=== PATIENT | male | born 1950 | race Caucasian/White ===

== ENCOUNTER 2018-01-18 13:10 | Inpatient (IN) | payer MEDICARE, OTHER ==
[~2018-01-18] VITALS: Ht 175.3 cm; Wt 116.1 kg
[~2018-01-18 13:10] MED LIST: ALPR0.5T72 PO; ASPI-933 PO; CLOP75TA PO; ENAL10TA PO; ENAL5TAB PO; FURO40TA4 PO; GUAI400T35 PO; HCT25T; ISOS60TA; METH750T3; METO100T2 PO; METO100T5; MTP50T PO; OMEP-10; PARO30TA2; POTA10CA43 PO; PRAV40TA PO; RANI-10
--- NOTE | 2018-01-18 13:39 | ED General ---
General Stated Complaint: WEAKNESS Source of Information: Patient Exam Limitations: No Limitations History of Present Illness Date Seen by Provider: Jan 18, 2018 Time Seen by Provider: 13:37 Initial Comments To ER with general weakness and inability to get up off the couch. He's been like this for several days, states that he's only had enough energy to get up and use the restroom. Upon EMS arrival his blood pressure was in the 80s systolic. His blood sugar was 50s. He has a history of CHF, CABG, COPD and hepatitis C. He did complete heart bony treatment for the hepatitis C in August of this year. [facility] Arzola. He reports shortness of breath with exertion. Denies chest pain. He does have a cough. EMS reports that his home is in deplorable conditions. On arrival to ER he requests a [employer] house steak and Demerol. Timing/Duration: 1-2 Days Severity: Moderate Associated Systoms: Cough Allergies and Home Medications Allergies Coded Allergies: Penicillins (Unverified Allergy, Mild, 01/15/14) Home Medications Clopidogrel Bisulfate 75 Mg Tablet, 1 EACH PO DAILY, (Reported) Metoprolol Tartrate 50 Mg Tablet, 1 EACH PO DAILY, (Reported) Paroxetine Hcl 30 Mg Tablet, 30 MG DAILY, (Reported) Patient Home Medication List Home Medication List Reviewed: Yes Review of Systems Review of Systems Constitutional: see HPI EENTM: see HPI Respiratory: see HPI, cough, short of breath Cardiovascular: no symptoms reported Genitourinary: no symptoms reported Musculoskeletal: no symptoms reported Skin: no symptoms reported Psychiatric/Neurological: No Symptoms Reported Hematologic/Lymphatic: No Symptoms Reported Immunological/Allergic: no symptoms reported Past Qjwgzpn-Msgeti-Btxxrs Hx Immunizations Up To Date Date of Pneumonia Vaccine: Nov 19, 2013 Past Medical History COPD, Emphysema Chronic Edema/Swelling, Coronary Artery Disease Liver Disease/Jaundice, Chronic Constipation, Hepatitis, Cirrhosis Scoliosis, Chronic Back Pain Anxiety, Depression Physical Exam Vital Signs Vital Signs - First Documented 01/18/18 01/18/18 13:10 14:59 Temp 96.7 Pulse 67 Resp 15 B/P (MAP) 96/60 (72) Pulse Ox 88 O2 Delivery Vapotherm O2 Flow Rate 40.00 FiO2 100 Capillary Refill : Height, Weight, BMI Height: 5'8.00" Weight: 238lbs. 0.0oz. 107.514740ig; 36.2 BMI Method: General Appearance: No Apparent Distress, WD/WN HEENT: PERRL/EOMI, TMs Normal Neck: Full Range of Motion, Normal Inspection Respiratory: No Accessory Muscle Use, No Respiratory Distress, Decreased Breath Sounds, Wheezing Gastrointestinal: Normal Bowel Sounds, Non Tender, Soft Neurologic/Psychiatric: Alert, Oriented x3 Skin: Normal Color, Warm/Dry, Other (Capillary refill of toes is delayed at 5 seconds) Focused Exam Lactate Level 01/18/18 13:27: Lactic Acid Level 2.82*H 01/18/18 15:30: Lactic Acid Level 1.53 Lactic Acid Level Laboratory Tests Test 01/18/18 13:27 01/18/18 15:30 Lactic Acid Level 2.82 MMOL/L (0.50-2.00) *H 1.53 MMOL/L (0.50-2.00) Progress/Results/Core Measures Suspected Sepsis SIRS Temperature: Pulse: Respiratory Rate: Laboratory Tests 01/18/18 13:27: White Blood Count 5.1 Blood Pressure / Mean: 01/18/18 13:27: Lactic Acid Level 2.82*H 01/18/18 15:30: Lactic Acid Level 1.53 Laboratory Tests 01/18/18 13:27: Creatinine 2.75H, INR Comment 1.6H, Platelet Count 150, Total Bilirubin 3.2H Results/Orders Lab Results Laboratory Tests Test 01/18/18 13:23 01/18/18 13:27 01/18/18 15:30 Range/Units Glucometer 111 H 70-110 MG/DL White Blood Count 5.1 4.3-11.0 10^3/uL Red Blood Count 4.82 4.35-5.85 10^6/uL Hemoglobin 13.5 13.3-17.7 G/DL Hematocrit 41 40-54 % Mean Corpuscular Volume 85 80-99 FL Mean Corpuscular Hemoglobin 28 25-34 PG Mean Corpuscular Hemoglobin Concent 33 32-36 G/DL Red Cell Distribution Width 18.0 H 10.0-14.5 % Platelet Count 150 130-400 10^3/uL Mean Platelet Volume 11.3 H 7.4-10.4 FL Neutrophils (%) (Auto) 81 H 42-75 % Lymphocytes (%) (Auto) 7 L 12-44 % Monocytes (%) (Auto) 11 0-12 % Eosinophils (%) (Auto) 1 0-10 % Basophils (%) (Auto) 0 0-10 % Neutrophils # (Auto) 4.1 1.8-7.8 X 10^3 Lymphocytes # (Auto) 0.3 L 1.0-4.0 X 10^3 Monocytes # (Auto) 0.6 0.0-1.0 X 10^3 Eosinophils # (Auto) 0.1 0.0-0.3 10^3/uL Basophils # (Auto) 0.0 0.0-0.1 10^3/uL Neutrophils % (Manual) 89 % Lymphocytes % (Manual) 1 % Monocytes % (Manual) 9 % Eosinophils % (Manual) 0 % Basophils % (Manual) 1 % Band Neutrophils 0 % Anisocytosis MODERATE Prothrombin Time 19.1 H 12.2-14.7 SEC INR Comment 1.6 H 0.8-1.4 Sodium Level 132 L 135-145 MMOL/L Potassium Level 5.5 H 3.6-5.0 MMOL/L Chloride Level 100 98-107 MMOL/L Carbon Dioxide Level 21 21-32 MMOL/L Anion Gap 11 5-14 MMOL/L Blood Urea Nitrogen 53 H 7-18 MG/DL Creatinine 2.75 H 0.60-1.30 MG/DL Estimat Glomerular Filtration Rate 23 BUN/Creatinine Ratio 19 Glucose Level 127 H 70-105 MG/DL Lactic Acid Level 2.82 *H 1.53 0.50-2.00 MMOL/L Calcium Level 8.9 8.5-10.1 MG/DL Corrected Calcium 9.9 8.5-10.1 MG/DL Total Bilirubin 3.2 H 0.1-1.0 MG/DL Aspartate Amino Transf (AST/SGOT) 21 5-34 U/L Alanine Aminotransferase (ALT/SGPT) 15 0-55 U/L Alkaline Phosphatase 68 40-136 U/L Ammonia 50 H 11-32 UMOL/L Total Creatine Kinase 28 L 30-200 U/L B-Type Natriuretic Peptide 3346.6 H <100.0 PG/ML Total Protein 8.3 H 6.4-8.2 GM/DL Albumin 2.8 L 3.2-4.5 GM/DL My Orders Orders - BHAVESH SEE INSURANCE CASE MANAGER Cbc With Automated Diff (01/18/18 13:34) Comprehensive Metabolic Panel (01/18/18 13:34) Protime With Inr (01/18/18 13:34) Ua Culture If Indicated (01/18/18 13:34) Chest 1 View, Ap/Pa Only (01/18/18 13:34) Ammonia (01/18/18 13:34) Blood Culture (01/18/18 13:34) Lactic Acid Analyzer (01/18/18 13:34) Iv Heplock-Insert (Order) (01/18/18 13:34) BNP (01/18/18 13:34) Lidocaine 2% (Urojet) (Xylocaine Urojet) (01/18/18 13:41) Manual Differential (01/18/18 13:27) Furosemide Injection (Lasix Injection) (01/18/18 14:45) Creatine Kinase (01/18/18 15:18) Albuterol/Ipra Inhalation Soln (Duoneb I (01/18/18 15:30) Svn Small Volume Nebulizer (01/18/18 15:18) Medications Given in ED Current Medications Medications Dose Ordered Sig/Espinoza Route Start Time Stop Time Status Last Admin Dose Admin Albuterol/ Ipratropium 3 ml ONCE ONCE INH 01/18/18 15:30 01/18/18 15:31 DC 01/18/18 15:27 3 ML Lidocaine HCl 10 ml STK-MED ONCE .ROUTE 01/18/18 13:41 01/18/18 13:45 DC 01/18/18 13:46 10 ML Vital Signs/I&O 01/18/18 01/18/18 01/18/18 13:10 14:59 15:27 Temp 96.7 Pulse 67 Resp 15 B/P (MAP) 96/60 (72) Pulse Ox 88 94 94 O2 Delivery Vapotherm Vapotherm O2 Flow Rate 40.00 40.00 FiO2 100 100 Capillary Refill : Diagnostic Imaging Diagonstic Imaging: Xray Plain Films/CT/US/NM/MRI: chest Comments NAME: PANCHO WINSTON [facility] REC#: [id number] PT STATUS: REG ER : 1950 PHYSICIAN: BHAVESH SEE APRN ADMIT DATE: 01/18/18/ER Draft Date of Exam:01/18/18 CHEST 1 VIEW, AP/PA ONLY INDICATION: Weakness, hypotension.. TECHNIQUE: Single view chest 1:52 PM. CORRELATION STUDY: 01/15/2014 FINDINGS: Poststernotomy changes with extensive external fixation hardware. Cardiac enlargement persists. There is presence of pulmonary vascular congestion, perihilar edema. There does appear to be overall increase from prior study along with interstitial edema. Bilateral pleural effusions moderate on the left, stable and slightly increased on the right. Fluid on the left extends over the left lung apex. Associated consolidation of the left lung base. Superimposed edema versus infiltrate over the remaining lung miguel. IMPRESSION: 1. Overall features favor worsening congestive heart failure. Moderate left pleural effusion, increasing size right pleural effusion. Interstitial edema, likely some pulmonary edema present. 2. Superimposed atelectasis versus infiltrate in the left lung base. Dictated on workstation # [id number] Dict: 01/18/18 1416 Trans: 01/18/18 1430 CVB [id number] Interpreted by: VI DRAKE DO Electronically signed by: Departure Communication (Admissions) Time/Spoke to Admitting Phy: 15:[address] Spears. We will admit the patient consult cardiology, consult Dr. Disla from pulmonology. Time/Spoke to Consulting Phy: 15:[address] Dupont. He agrees to consult. At this time his blood pressure is 118/83 sinus rhythm heart rate 62 oxygen saturation 96% on Vapotherm as he was a bit dyspneic on 2-4 L per nasal cannula. He has received 40 mg of IV Lasix. Despite the appearance of pulmonary edema/central vascular congestion I do believe him to be intravascularly volume depleted given the elevated BUN/creatinine and inability to get off the couch and drink as much as usual for the past few days. He has received a total of 1L normal saline between EMS and his stay in ER. Impression Primary Impression: Congestive heart failure Additional Impressions: Acute renal failure Cirrhosis Disposition: ADMITTED INPATIENT Condition: Stable Admissions Decision to Admit Reason: Admit from ER (General) Decision to Admit/Date: Jan 18, 2018 Time/Decision to Admit Time: 13:43 Departure-Patient Inst. Referrals: LUZ ARZOLA DO (PCP/Family) Primary Care Physician BHAVESH SEE APRN Jan 18, 2018 13:39
[2018-01-18] MEDS ORDERED: LIDOCAINE UROJET 2% GEL 10 ML PKG ONE (13:41)
[2018-01-18 13:45] LABS: BASOPHILS % (AUTO) 0 % (0-10); EOSINOPHILS # (AUTO) 0.1 10^3/uL (0.0-0.3); EOSINOPHILS % (AUTO) 1 % (0-10); HEMATOCRIT 41 % (40-54); HEMOGLOBIN 13.5 G/DL (13.3-17.7); LYMPHOCYTES # (AUTO) 0.3 X 10^3 (1.0-4.0); LYMPHOCYTES % (AUTO) 7 % (12-44); MEAN CORPUSCULAR HEMOGLOBIN 28 PG (25-34); MEAN CORPUSCULAR HGB CONC 33 G/DL (32-36); MEAN CORPUSCULAR VOLUME 85 FL (80-99); MEAN PLATELET VOLUME 11.3 FL (7.4-10.4); MONOCYTES # (AUTO) 0.6 X 10^3 (0.0-1.0); MONOCYTES % (AUTO) 11 % (0-12); NEUTROPHILS # (AUTO) 4.1 X 10^3 (1.8-7.8); NEUTROPHILS % (AUTO) 81 % (42-75); PLATELET COUNT 150 10^3/uL (130-400); RED BLOOD COUNT 4.82 10^6/uL (4.35-5.85); WHITE BLOOD COUNT 5.1 10^3/uL (4.3-11.0)
[2018-01-18 13:56] LABS: INR 1.6 (0.8-1.4); PROTHROMBIN TIME PATIENT 19.1 SEC (12.2-14.7)
[2018-01-18 14:02] LABS: ALBUMIN 2.8 GM/DL (3.2-4.5); BILIRUBIN,TOTAL 3.2 MG/DL (0.1-1.0); CALCIUM 8.9 MG/DL (8.5-10.1); CREATININE SERUM 2.75 MG/DL (0.60-1.30); TOTAL PROTEIN 8.3 GM/DL (6.4-8.2)
[2018-01-18 14:13] LABS: POTASSIUM 5.5 MMOL/L (3.6-5.0)
[2018-01-18 14:26] LABS: ANISOCYTOSIS MODERATE; BAND NEUTROPHILS 0 %; BASOPHILS % (MANUAL) 1 %; EOSINOPHILS % (MANUAL) 0 %; LYMPHOCYTES % (MANUAL) 1 %; MONOCYTES % (MANUAL) 9 %; NEUTROPHILS % (MANUAL) 89 %
[2018-01-18] MEDS ORDERED: ISORBIDE (14:26)
[2018-01-18] MEDS ORDERED: NITR0.4T42 SL (14:26)
--- NOTE | 2018-01-18 14:31 | Diagnostic Imaging Report ---
INDICATION: Weakness, hypotension.. TECHNIQUE: Single view chest 1:52 PM. CORRELATION STUDY: 01/15/2014 FINDINGS: Poststernotomy changes with extensive external fixation hardware. Cardiac enlargement persists. There is presence of pulmonary vascular congestion, perihilar edema. There does appear to be overall increase from prior study along with interstitial edema. Bilateral pleural effusions moderate on the left, stable and slightly increased on the right. Fluid on the left extends over the left lung apex. Associated consolidation of the left lung base. Superimposed edema versus infiltrate over the remaining lung miguel. IMPRESSION: 1. Overall features favor worsening congestive heart failure. Moderate left pleural effusion, increasing size right pleural effusion. Interstitial edema, likely some pulmonary edema present. 2. Superimposed atelectasis versus infiltrate in the left lung base. Dictated by: Dictated on workstation # [id number]
[2018-01-18] MEDS ORDERED: FUROSEMIDE 40 MG/4 ML INJ (LASIX) IVP ONE (14:45)
[2018-01-18] MEDS ORDERED: RT-ALBUTEROL/IPRATROPIUM 3 ML (DUONEB) VIAL INH ONE (15:30)
--- NOTE | 2018-01-18 16:34 | Consultation-Cardiology ---
HPI-Cardiology Cardiology Consultation: Date of Consultation 01/18/18 Time Seen by Provider: 17:45 Date of Admission Attending Physician Dat Patel DO Admitting Physician Dat Patel DO Consulting Physician BHARAT SOSA MD, MA, FACP, FACC, FSCAI, CCDS Physician requesting consult: Dr Spears PCP: Dr Patel HPI: Chief Complaint: CC: Gen weakness and shortness of breath 67 yo man with multiple comorbidities, admitted through the ER to Dr Spears for eval and treatment of increasing gen weakness and malaise Has chronic, slowly progressive shortness of breath and bilat leg swelling. Notes itching over the skin of both legs Denies cp or palp or syncope Notes some abd distention. Denies diarrhea or constipation Does not report recent fever or chills Notes intolerance to Lasix (not able to specify symptoms) Review of Systems-Cardiology Review of Systems Constitutional: malaise; No weight loss, No weight gain Eyes: No vision change Ears/Nose/Throat: No ear discharge, No nasal drainage, No recent hearing loss Respiratory: As described under HPI Cardiovascular: As described under HPI Gastrointestinal: As described under HPI Genitourinary: No dysuria, No hematuria Musculoskeletal: back pain (chroni) Skin: As described under HPI; No rash, No ulcerations Psychiatric/Neurological: No seizure, No focal weakness, No syncope Hematologic: No bleeding abnormalities BDM-Uxkhnt-Aajmpg Hx Patient Social History Alcohol Use: Denies Use Recreational Drug Use: No Smoking Status: Current Everyday Smoker Recent Foreign Travel: No Recent Infectious Disease Expo: No Hospitalization with Isolation: Denies Immunizations Up To Date Date of Pneumonia Vaccine: Nov 19, 2013 Past Medical History PMH As described under Assessment. Family Medical History Family Medical History: Does not report fam h/o early CAD or SCD Allergies and Home Medications Allergies Coded Allergies: Penicillins (Unverified Allergy, Mild, 01/15/14) Home Medications Clopidogrel Bisulfate 75 Mg Tablet, 75 MG PO DAILY, (Reported) Metoprolol Tartrate 50 Mg Tablet, 1 EACH PO DAILY, (Reported) Nitroglycerin 0.4 Mg Tab.subl, 0.4 MG SL PRN, (Reported) Q5 MINUTES NEEDED X 3 DOSES FOR CP Paroxetine Hcl 30 Mg Tablet, 30 MG DAILY, (Reported) Patient Home Medication List Home Medication List Reviewed: Yes Physical Exam-Cardiology Physical Exam Vital Signs/I&O 8/31/18 8/31/18 8/31/18 8/31/18 13:10 14:59 15:27 17:33 Temp 96.7 Pulse 67 67 Resp 15 15 B/P (MAP) 96/60 (72) 116/75 (72) Pulse Ox 88 94 94 88 O2 Delivery Vapotherm Vapotherm Vapotherm O2 Flow Rate 40.00 40.00 40.00 FiO2 100 100 Capillary Refill : Less Than 3 Seconds Constitutional: AAO x 3, well-developed, well-nourished HEENT: EOMI, hearing is well preserved; No xanthelasmas are seen Neck: carotid pulses are 2 + bilaterally, with good upstrokes Respiratory: No accessory muscle use; other (diminished air entry at both bases ) Cardiovascular: regular rate-rhythm, S1 and S2, systolic murmur (soft AIMEE at card base) Gastrointestinal: No tender; distended; No guarding, No rebound; audible bowel sounds Extremities: No clubbing, No cyanosis; significant edema (bilateral leg edema) Neurologic/Psychiatric: grossly intact, power is 5/5 both on sides Skin: other (scratch melendrez and abrasions over the skin of both legs) Data Review Labs Laboratory Tests 01/18/18 13:23: Glucometer 111H 01/18/18 13:27: White Blood Count 5.1, Red Blood Count 4.82, Hemoglobin 13.5, Hematocrit 41, Mean Corpuscular Volume 85, Mean Corpuscular Hemoglobin 28, Mean Corpuscular Hemoglobin Concent 33, Red Cell Distribution Width 18.0H, Platelet Count 150, Mean Platelet Volume 11.3H, Neutrophils (%) (Auto) 81H, Lymphocytes (%) (Auto) 7L, Monocytes (%) (Auto) 11, Eosinophils (%) (Auto) 1, Basophils (%) (Auto) 0, Neutrophils # (Auto) 4.1, Lymphocytes # (Auto) 0.3L, Monocytes # (Auto) 0.6, Eosinophils # (Auto) 0.1, Basophils # (Auto) 0.0, Neutrophils % (Manual) 89, Lymphocytes % (Manual) 1, Monocytes % (Manual) 9, Eosinophils % (Manual) 0, Basophils % (Manual) 1, Band Neutrophils 0, Anisocytosis MODERATE, Prothrombin Time 19.1H, INR Comment 1.6H, Sodium Level 132L, Potassium Level 5.5H, Chloride Level 100, Carbon Dioxide Level 21, Anion Gap 11, Blood Urea Nitrogen 53H, Creatinine 2.75H, Estimat Glomerular Filtration Rate 23, BUN/Creatinine Ratio 19 , Glucose Level 127H, Lactic Acid Level 2.82*H, Calcium Level 8.9, Corrected Calcium 9.9, Total Bilirubin 3.2H, Aspartate Amino Transf (AST/SGOT) 21, Alanine Aminotransferase (ALT/SGPT) 15, Alkaline Phosphatase 68, Ammonia 50H, Total Creatine Kinase 28L, B-Type Natriuretic Peptide 3346.6H, Total Protein 8.3H, Albumin 2.8L 01/18/18 15:30: Lactic Acid Level 1.53 Laboratory Tests 01/18/18 13:27 A/P-Cardiology Assessment/Admission Diagnosis Acute renal failure of undetermined etiology, managed by the Hospitalist Svce ( Dr Humphries) Hypotension and elevated lactic acid. Consider septicemia, managed by Dr Spears Ac CHF, probably diastolic (based on previous card w/u that is noted below) Chronic Hep-C and hepatic cirrhosis, managed by [facility] at [facility], s/p CABG in October 2010. MPI of 09/16/15 showed basal inf infarction with only minimal antoinette-infarct ischemia and LVEF 69%. Echo of 07/17/[address] Aparicio at [facility], is reported to have shown LVEF 55%, RV overload, PASP approx 57 mmHg, mild to mod MR, severe TR H/o heavy alcohol use in the past, currently down to two beers a day (according to him) RBBB, chronic Chronic tobacco use H/o intolerance statin COPD Intolerance to enalapril (stopped at [facility] in November 2014 after he had presented with tongue swelling) Obesity with BMI approx 44 Discussion and Recomendations * Complex management due to multiple comorbidities * Fluid plus diuretics appears reasonable * Bumex per pt request (doesn't want furosemide) * Treat elev K * Monitor labs closely * Guarded prognosis * I had a detailed discussion with him BHARAT SOSA MD FACP [facility] CCDS Jan 18, 2018 16:34
[2018-01-18] MEDS ORDERED: FUROSEMIDE 40 MG/4 ML INJ (LASIX) ONE (17:16)
[2018-01-18 17:40] VITALS: BP 120/52
[2018-01-18] MEDS ORDERED: BUMETANIDE 1 MG/4 ML (BUMEX) VIAL IV NR (18:15)
[2018-01-18] MEDS ORDERED: SOD POLYSTERENE 15 GM/60 ML (KAYEXALATE) UNIT DOSE PR NR (18:15)
[2018-01-18] MEDS ORDERED: SOD POLYSTYRENE 30 GM/120 ML (KAYEXALATE) BULK BOTTLE PR NR (18:15)
[2018-01-18] MEDS ORDERED: ASPIRIN 81 MG CHEW (CHILDREN'S ASA) PO NR (18:15)
[2018-01-18] MEDS ORDERED: SOD POLYSTYRENE 30 GM/120 ML (KAYEXALATE) BULK BOTTLE PO NR (18:15)
[2018-01-18] MEDS: NS IV 1000 ML 1,000 ML IV SCH (18:24)
[2018-01-18] MEDS ORDERED: ENOXAPARIN 30 MG/0.3 ML (LOVENOX) SYR SC SCH (18:30)
[2018-01-18 18:31] LABS: HEMOGLOBIN 14.2 G/DL (13.3-17.7); MEAN PLATELET VOLUME 11.2 FL (7.4-10.4); RED BLOOD COUNT 4.97 10^6/uL (4.35-5.85); RED CELL DISTRIBUTION WIDTH 18.1 % (10.0-14.5); WHITE BLOOD COUNT 5.5 10^3/uL (4.3-11.0)
[2018-01-18] MEDS: methylPREDNISolone 40 MG/ML (Solu-MEDROL) VIAL IV SCH (18:43)
[2018-01-18] MEDS: FAMOTIDINE 20 MG (PEPCID) TABLET PO SCH (18:45)
[2018-01-18 18:47] LABS: INR 1.5 (0.8-1.4); PROTHROMBIN TIME PATIENT 18.6 SEC (12.2-14.7)
[2018-01-18] MEDS: ENOXAPARIN 40 MG/0.4 ML (LOVENOX) SYR SC SCH (18:49)
[2018-01-18 18:56] LABS: ALANINE AMINOTRANSFERASE 16 U/L (0-55); ALBUMIN 2.9 GM/DL (3.2-4.5); ALKALINE PHOSPHATASE 70 U/L (40-136); BILIRUBIN,TOTAL 3.3 MG/DL (0.1-1.0); BUN/CREATININE RATIO 19; CALCIUM 9.1 MG/DL (8.5-10.1); CARBON DIOXIDE 24 MMOL/L (21-32); CHLORIDE 99 MMOL/L (98-107); CHOLESTEROL 92 MG/DL (< 200); CREATININE SERUM 2.84 MG/DL (0.60-1.30); GFR ESTIMATED 22; GLUCOSE 94 MG/DL (70-105); HDL CHOLESTEROL < 15 MG/DL (40-60); POTASSIUM 5.8 MMOL/L (3.6-5.0); SODIUM 132 MMOL/L (135-145); TOTAL PROTEIN 8.4 GM/DL (6.4-8.2); TRIGLYCERIDES 114 MG/DL (<150); VLDL CHOLESTEROL 23 MG/DL (5-40)
[2018-01-18 19:18] VITALS: BP 120/52
[2018-01-18 19:55] VITALS: BP 152/68
[2018-01-18] MEDS ORDERED: RT-ALBUTEROL/IPRATROPIUM 3 ML (DUONEB) VIAL INH PRN (20:00)
[2018-01-18] MEDS ORDERED: BUMETANIDE 1 MG/4 ML (BUMEX) VIAL IV SCH (21:00)
[2018-01-18] MEDS: RT-ALBUTEROL/IPRATROPIUM 3 ML (DUONEB) VIAL INH SCH (22:26)
[2018-01-19] VITALS: BP 111/71
[2018-01-19] MEDS: methylPREDNISolone 40 MG/ML (Solu-MEDROL) VIAL IV SCH ×4 (00:11→18:08)
[2018-01-19] MEDS ORDERED: LIDOCAINE UROJET 2% GEL 10 ML PKG ONE (00:18)
[2018-01-19 02:03] LABS: BASOPHILS % (AUTO) 0 % (0-10); EOSINOPHILS % (AUTO) 0 % (0-10); HEMATOCRIT 38 % (40-54); HEMOGLOBIN 13.1 G/DL (13.3-17.7); LYMPHOCYTES # (AUTO) 0.2 X 10^3 (1.0-4.0); LYMPHOCYTES % (AUTO) 3 % (12-44); MEAN CORPUSCULAR HEMOGLOBIN 29 PG (25-34); MEAN CORPUSCULAR HGB CONC 35 G/DL (32-36); MEAN CORPUSCULAR VOLUME 85 FL (80-99); MEAN PLATELET VOLUME 10.9 FL (7.4-10.4); MONOCYTES # (AUTO) 0.1 X 10^3 (0.0-1.0); MONOCYTES % (AUTO) 2 % (0-12); NEUTROPHILS # (AUTO) 5.1 X 10^3 (1.8-7.8); NEUTROPHILS % (AUTO) 95 % (42-75); PLATELET COUNT 127 10^3/uL (130-400); RED BLOOD COUNT 4.48 10^6/uL (4.35-5.85); RED CELL DISTRIBUTION WIDTH 17.7 % (10.0-14.5); WHITE BLOOD COUNT 5.3 10^3/uL (4.3-11.0)
[2018-01-19 02:20] LABS: ALBUMIN 2.7 GM/DL (3.2-4.5); BILIRUBIN,TOTAL 2.8 MG/DL (0.1-1.0); CALCIUM 8.4 MG/DL (8.5-10.1); CREATININE SERUM 3.08 MG/DL (0.60-1.30); POTASSIUM 5.7 MMOL/L (3.6-5.0); TOTAL PROTEIN 7.4 GM/DL (6.4-8.2)
[2018-01-19] MEDS: RT-ALBUTEROL/IPRATROPIUM 3 ML (DUONEB) VIAL INH SCH ×6 (03:00→22:35)
[2018-01-19 04:00] VITALS: BP 100/64
[2018-01-19] MEDS: NS IV 1000 ML 1,000 ML IV SCH ×3 (04:11→15:44)
--- NOTE | 2018-01-19 05:36 | Pulmonary Consultation ---
History of Present Illness History of Present Illness Date of Consultation 01/19/18 05:31 Time Seen by Provider: 05:31 Date of Admission History of Present Illness 67yo WM with hx of CHF, COPD, CAD/CABG, Hepatitis C presented secondary to progressive SOB worse with exertion and weakness and was found to be hypotensive with BP in the 80's . His BS was 50's. Pt has not been able to get up off his couch. He has had similar episodes in the past. I am consulted for ICU management. Allergies and Home Medications Allergies Coded Allergies: Penicillins (Unverified Allergy, Mild, 01/15/14) Home Medications Clopidogrel Bisulfate 75 Mg Tablet, 75 MG PO DAILY, (Reported) Metoprolol Tartrate 50 Mg Tablet, 1 EACH PO DAILY, (Reported) Nitroglycerin 0.4 Mg Tab.subl, 0.4 MG SL PRN, (Reported) Q5 MINUTES NEEDED X 3 DOSES FOR CP Paroxetine Hcl 30 Mg Tablet, 30 MG DAILY, (Reported) Past Eghzfzt-Krokll-Jbhsbk Hx Patient Social History Alcohol Use: Occasionally Uses Number of Drinks Today: 0 Alcohol Beverage of Choice: Beer Recreational Drug Use: No Smoking Status: Current Everyday Smoker Type Used: Cigarettes Recent Foreign Travel: No Contact w/Someone Who Travel: No Recent Infectious Disease Expo: No Recent Hopitalizations: No Physical Abuse: No Sexual Abuse: No Immunizations Up To Date Date of Pneumonia Vaccine: Nov 19, 2013 Seasonal Allergies Seasonal Allergies: No Past Medical History Surgeries: Yes CABG Respiratory: Yes COPD, Emphysema Currently Using CPAP: No Currently Using BIPAP: No Cardiac: Yes Chronic Edema/Swelling, Coronary Artery Disease, Hypertension Neurological: No Genitourinary: Yes (ARF) Prostate Problems Gastrointestinal: Yes (HEPATITIS C) Liver Disease/Jaundice, Gastrointestinal Bleed, Chronic Constipation, Hepatitis , Cirrhosis Musculoskeletal: Yes Scoliosis, Chronic Back Pain Endocrine: Yes (OBESITY) Are Your Blood Sugars Over 250: No Cancer: No Psychosocial: Yes Anxiety, Depression Nursing Suicide Risk Score: 0 Integumentary: Yes (multiple small scabs) Blood Disorders: No Review of Systems Time Seen by Provider: 05:48 Constitutional: Sweats, Weakness, Malaise Eyes: No: Pain, Vision change, Conjunctivae inflammation, Eyelid inflammation, Other, Redness ENT: No: Ear pain, Ear discharge, Nose pain, Nose discharge, Nose congestion, Mouth pain, Mouth swelling, Throat pain, Throat swelling, Other Respiratory: Shortness of breath, SOB with excertion Neurological: Weakness, Incoordination, Confusion Sepsis Event Evaluation Height, Weight, BMI Height: 5'9.00" Weight: 245lbs. 5.0oz. 111.291607od; 36.2 BMI Method:Estimated Exam Exam Vital Signs Date Time Temp Pulse Resp B/P (MAP) Pulse Ox O2 Delivery O2 Flow Rate FiO2 01/19/18 04:00 97.6 60 16 100/64 (76) 100 Vapotherm 50.00 20.00 01/19/18 04:00 100 Vapotherm 20.00 50 01/19/18 03:10 Vapotherm 50.00 20.00 01/19/18 03:01 98 Vapotherm 20.00 70 01/19/18 01:00 61 01/19/18 00:05 100 Vapotherm 20.00 70 01/19/18 00:00 97.0 63 18 111/71 (84) 97 Vapotherm 70.00 20.00 01/18/18 22:26 94 Vapotherm 20.00 70 01/18/18 20:14 100 Vapotherm 20.00 70 01/18/18 19:55 100 Vapotherm 20.00 70 01/18/18 19:55 97.4 61 20 152/68 (96) 100 Vapotherm 70.00 01/18/18 19:18 62 95 70 01/18/18 19:18 95 Vapotherm 20.00 70 01/18/18 19:00 62 01/18/18 18:01 62 01/18/18 17:40 100 Vapotherm 20.00 70 01/18/18 17:40 97.2 62 24 120/52 (74) 100 Vapotherm 70.00 20.00 01/18/18 17:33 67 15 116/75 (72) 88 Vapotherm 40.00 01/18/18 15:27 94 Vapotherm 40.00 100 01/18/18 14:59 94 Vapotherm 40.00 100 01/18/18 13:10 96.7 67 15 96/60 (72) 88 I & O 01/19/18 07:00 Intake Total 1740 ml Output Total 0 ml Balance 1740 ml Height & Weight Height: 5'9.00" Weight: 245lbs. 5.0oz. 111.292768tc; 36.2 BMI Method:Estimated General Appearance: WD/WN, Anxious, Chronically ill, Moderate Distress HEENT: PERRL/EOMI, TMs Normal Neck: Full Range of Motion, Normal Inspection Respiratory: No Accessory Muscle Use, No Respiratory Distress, Decreased Breath Sounds, Wheezing Cardiovascular: Regular Rate, Rhythm, No Edema, No Gallop Capillary Refill: Less Than 3 Seconds Gastrointestinal: normal bowel sounds, non tender, soft Neurologic/Psychiatric: Alert, Oriented x3 Skin: Normal Color, Warm/Dry, Other (Capillary refill of toes is delayed at 5 seconds) Lymphatic: No Adenopathy Results Lab Laboratory Tests 01/18/18 13:27 01/18/18 18:25 01/19/18 01:50 Assessment/Plan Assessment/Plan Acute on chronic renal failure with hyperkalemia and pulmonary edema -Will give D50, 10units of Insulin IV, bicarb, and Kayexalate -repeat Chem at 11:00 -Hold Bumex and start IVF -Pt may need to be transferred for HD. Will place myers and reassess in AM. Post obstructive uropathy probably secondary to BPH (bladder scan shows around 1 liter of urine in bladder) -PT is refusing myers secondary to a previous traumatic experience with myers cath -He is accepting of myers if sedation is given first -Will give 2mg of Versed, and 50mcg of Fentanyl and have RN place myers -Check bilateral renal US -Start Flomax Hypoxia -Vapotherm -Check ABG Elevated TSH - probably hypothyroid -Check T4,T3 -It does not appear pt is home thyroid replacement at home. Morbid obesity probable OHS Hx of hep C Hyponatremia Critical Care: Critically Ill Patient CARMEN SÁNCHEZ DO Jan 19, 2018 05:36
[2018-01-19] MEDS ORDERED: fentaNYL INJECTION 100 MCG/2 ML AMP ONE (05:41)
[2018-01-19] MEDS ORDERED: MIDAZOLAM 2 MG/2 ML (VERSED) VIAL ONE (05:41)
[2018-01-19] MEDS ORDERED: MIDAZOLAM 2 MG/2 ML (VERSED) VIAL IVP ONE (05:45)
[2018-01-19] MEDS ORDERED: SODIUM BICARB 8.4% 50 MEQ/50 ML (ABBOTT) SYR IV ONE ×2 (05:45→07:15)
[2018-01-19] MEDS ORDERED: inSUlin (REGULAR) HUMAN 1 UNIT/0.01 ML (CHARGE PER UNIT) IV ONE (05:45)
[2018-01-19] MEDS ORDERED: SOD POLYSTERENE 15 GM/60 ML (KAYEXALATE) UNIT DOSE PO ONE (05:45)
[2018-01-19] MEDS ORDERED: fentaNYL INJECTION 100 MCG/2 ML AMP IVP ONE (05:45)
[2018-01-19] MEDS ORDERED: DEXTROSE 50% 50 ML (IMS) SYR IV ONE (05:45)
[2018-01-19] MEDS: ENOXAPARIN 40 MG/0.4 ML (LOVENOX) SYR SC SCH ×2 (06:23→18:08)
[2018-01-19] MEDS ORDERED: NS IV 1000 ML 1,000 ML IV SCH ×2 (06:45)
[2018-01-19 06:57] LABS: ABG BASE EXCESS -1.2 MMOL/L (-2.5-2.5); ABG OXYGEN SATURATION 94 % (94-100); ABG PCO2 53 MMHG (35-45); ABG PO2 72 MMHG (79-93); ABG TCO2 26.4 MMOL/L (21.0-31.0)
[2018-01-19 06:58] LABS: BILIRUBIN,URINE 2+ (NEGATIVE); CLARITY,URINE CLEAR; COLOR,URINE AMBER; GLUCOSE, URINE (UA) NEGATIVE (NEGATIVE); KETONES,URINE 1+ (NEGATIVE); LEUKOCYTE ESTERASE ,URINE 2+ (NEGATIVE); NITRITE,URINE POSITIVE (NEGATIVE); PH,URINE 5 (5-9); PROTEIN,URINE 3+ (NEGATIVE); UROBILINOGEN,URINE 4 MG/DL (NORMAL)
[2018-01-19 06:59] LABS: ALLENS TEST YES-POS; INSPIRED O2 20; PATIENT TEMP 97.3; VENTILATOR NO
[2018-01-19 07:00] LABS: ABG PH 7.29 (7.37-7.43)
[2018-01-19 07:10] LABS: AMORPHOUS SEDIMENT,UR MOD AMOR URATES /LPF; BACTERIA,URINE LARGE /HPF
[2018-01-19 08:30] VITALS: BP 115/77
[2018-01-19] MEDS: ASPIRIN 81 MG CHEW (CHILDREN'S ASA) PO SCH (09:08)
[2018-01-19] MEDS: cefTRIAXone FOR IV USE 1,000 MG in NS (IVPB) 50 ML IV SCH (09:08)
--- NOTE | 2018-01-19 10:56 | History & Physical-Hospitalist ---
History of Present Illness HPI/Chief Complaint CC: Found down at home on couch for 8 days HPI: This is a 67yoWM clinic patient of Dr Patel who presented to the ER after being found down at home on the cough after 8 days and the living conditions being described as atrocious. Patient was confused on admit to ER asking for a Porterhouse steak with Demerol. [facility]. Patient has improved today but required conscious sedation for myers catheter to be placed after the nurse called me at 1220am to report he had >1000cc in his bladder but once it was placed the UOP was only 200cc so there is a possibility the bladder scan was measuring other body fluid. His creatinine continues to decline and IVF is being given due to volume depletion it is of a concern that oliguria renal failure will worsen and require transfer to higher level of care tomorrow. Patient does not have any details to add to his story and his dyspnea and overall severe debility give rise to a very poor prognosis and little chance of recovery. Source: patient, RN/MD Exam Limitations: no limitations Date Seen 01/19/18 Time Seen by Provider: 10:00 Attending Physician Dat Patel DO PCP Dat Patel DO Referring Physician Date of Admission Jan 18, 2018 at 15:05 Home Medications & Allergies Home Medications Reviewed patient Home Medication Reconciliation performed by pharmacy medication reconciliations central processing technician and/or nursing. Patients Allergies have been reviewed. Allergies Allergies Coded Allergies Penicillins (Unverified Allergy, Mild, 01/15/14) Past Hrldvju-Inylla-Dzfnbj Hx Past Med/Social Hx: Reviewed Nursing Past Med/Soc Hx, Reviewed and Corrections made Patient Social History Marrital Status: single Employed/Student: retired Alcohol Use: Occasionally Uses Number of Drinks Today: 0 Alcohol Beverage of Choice: Beer Recreational Drug Use: No Smoking Status: Current Everyday Smoker Type Used: Cigarettes Physical Abuse Screen: No Sexual Abuse: No Recent Foreign Travel: No Contact w/other who traveled: No Recent Hopitalizations: No Recent Infectious Disease Expo: No Immunizations Up To Date Date of Pneumonia Vaccine: Nov 19, 2013 Seasonal Allergies Seasonal Allergies: No Past Medical History Surgeries: CABG Currently Using CPAP: No Currently Using BIPAP: No Cardiac: Cardiomyopathy, Chronic Edema/Swelling, Coronary Artery Disease, Hypertension Genitourinary: Prostate Problems Gastrointestinal: Liver Disease/Jaundice, Gastrointestinal Bleed, Chronic Constipation, Hepatitis, Cirrhosis Musculoskeletal: Scoliosis, Chronic Back Pain Are Your Blood Sugars Over 250: No Psychosocial: Anxiety, Depression History of Blood Disorders: No Family History Hypertension Review of Systems Constitutional: weakness EENTM: no symptoms reported Respiratory: dyspnea on exertion Cardiovascular: no symptoms reported Gastrointestinal: no symptoms reported Genitourinary: decreased output, hesitancy Musculoskeletal: no symptoms reported Skin: no symptoms reported Psychiatric/Neurological: No Symptoms Reported Physical Exam Physical Exam Vital Signs Vital Signs - First Documented 01/18/18 01/18/18 13:10 14:59 Temp 96.7 Pulse 67 Resp 15 B/P (MAP) 96/60 (72) Pulse Ox 88 O2 Delivery Vapotherm O2 Flow Rate 40.00 FiO2 100 Capillary Refill : Less Than 3 Seconds Height, Weight, BMI Height: 5'9.00" Weight: 253lbs. 9.0oz. 115.100064xw; 36.2 BMI Method:Estimated General Appearance: No Apparent Distress, WD/WN, Chronically ill, Obese Eyes: Bilateral Eye Normal Inspection, Bilateral Eye PERRL HEENT: PERRL/EOMI, Normal ENT Inspection, Pharynx Normal Neck: Full Range of Motion, Normal Inspection, Non Tender, Supple, Carotid Bruit Respiratory: Chest Non Tender, No Accessory Muscle Use, No Respiratory Distress , Crackles, Decreased Breath Sounds Cardiovascular: Regular Rate, Rhythm, No Edema, No Gallop, No JVD, No Murmur, Normal Peripheral Pulses Gastrointestinal: Normal Bowel Sounds, No Organomegaly, No Pulsatile Mass, Non Tender, Soft Back: Normal Inspection, No CVA Tenderness, No Vertebral Tenderness Extremity: Normal Capillary Refill, Normal Inspection, Normal Range of Motion, Non Tender, No Calf Tenderness, No Pedal Edema Neurologic/Psychiatric: Alert, Oriented x3, No Motor/Sensory Deficits, Normal Mood/Affect Skin: Normal Color, Warm/Dry Lymphatic: No Adenopathy Results Results/Procedures Labs Laboratory Tests 01/18/18 13:27 01/18/18 18:25 01/19/18 01:50 01/19/18 11:35 Patient resulted labs reviewed. Assessment/Plan Admission Diagnosis ARF Volume depletion Elevated BNP COPD CHF CAD Gentle IVF Monitor labs Evaluate home meds Admission Status: Inpatient Order (span 2 midnights) Reason for Inpatient Admission: Severe acute renal failure will require more than 2 midnights to resolve with IVF Diagnosis/Problems Diagnosis/Problems (1) Acute renal failure Status: Acute (2) COPD (chronic obstructive pulmonary disease) Status: Chronic Qualifiers: COPD type: unspecified COPD Qualified Codes: J44.9 - Chronic obstructive pulmonary disease, unspecified (3) Debility Status: Chronic (4) Poor prognosis Status: Acute (5) Metabolic acidosis Status: Acute (6) Cirrhosis Status: Acute (7) Congestive heart failure Status: Acute Qualifiers: Heart failure type: unspecified Heart failure chronicity: unspecified Qualified Codes: I50.9 - Heart failure, unspecified Clinical Quality Measures DVT/VTE Risk/Contraindication: Risk Factor Score Per Nursin RFS Level Per Nursing on Admit: 4+=Very High LIZ CHERRY DO Jan 19, 2018 10:56
[2018-01-19] MEDS ORDERED: ISOS120T6 PO (11:39)
--- NOTE | 2018-01-19 11:45 | Physical Therapy Evaluation ---
PT Evaluation-General Medical Diagnosis Admission Date Jan 18, 2018 at 15:05 Medical Diagnosis: Hypoglycemia, hypotensive Onset Date: Jan 18, 2018 Therapy Diagnosis Therapy Diagnosis: Limited mobility Height/Weight Height (Feet): 5 Height (Inches): 9.00 Weight (Pounds): 253 Weight (Ounces): 9.0 Precautions Precautions/Isolations: Fall Prevention, Standard Precautions Weight Bear Status Right Lower Extremity: Right Full Weight Bearing Left Lower Extremity: Left Full Weight Bearing Referral Physician: Dat Patel DO Reason for Referral: Evaluation/Treatment Medical History Pertinent Medical History: CABG, Renal Insufficiency, Smoking Additional Medical History cirrhosis, hepatitis, prostate issues Current History Pt contacted EMS due to severe lethargy and inability to get up. No fall reported. Pt found to have blood glucose of 50mg/dl, and BP of 80mmHg. Reviewed History: Yes Social History Home: Single Level Current Living Status: Alone Entry Into Home: Level Entry PT Steps Into Home: 0 Prior/Core FIM Prior Level of Function Functional [place] Measure 0=Not Assessed/NA 4=Minimal Assistance 1=Total Assistance 5=Supervision or Setup 2=Maximal Assistance 6=Modified [place] 3=Moderate Assistance 7=Complete [place] Bed Mobility: 7 Transfers (B,C,W/C) (FIM): 7 Gait: 7 Locomotion: 7 PT Evaluation-Current Subjective Pt reports that he is very weak, and is very lethargic. He fell asleep twice during H&P (during a 5 minute span) Pt/Family Goals Return home. Objective Patient Orientation: Person, Place, Situation Problem Solving: Fair Attachments: Central Line, Oxygen, Goldberg Catheter trach ROM/Strength ROM Upper Extremities WFL ROM Lower Extremities WFL Strength Upper Extremities 3-/5 (B) UE gross strength. Strength Lower Extremities 3-/5 (B) LE gross strength. Neuromuscular (Tone, Coordination, Reflexes) intact Sensory Vision: Functional Hearing: Functional Sensation Right Upper Extremit: Intact Sensation Left Upper Extremity: Intact Sensation Right Lower Extremit: Intact Sensation Left Lower Extremity: Intact Transfers Functional [place] Measure 0=Not Assessed/NA 4=Minimal Assistance 1=Total Assistance 5=Supervision or Setup 2=Maximal Assistance 6=Modified [place] 3=Moderate Assistance 7=Complete [place] Transfers (B, C, W/C) (FIM): 2 Scootin Rollin Supine to/from Sit: 2 Gait Mode of Locomotion: Walk Anticipated Mode of Locomotion: Walk Balance Sitting Static: Fair Sitting Dynamic: Poor Assessment/Needs Pt is very weak and has very poor activity tolerance. He was only able to tolerate sitting up for 30 seconds. Rehab Potential: Fair PT Short Term Goals Short Term Goals Time Frame: Feb 02, 2018 Transfers (B,C,W/C) (FIM): 6 Gait (FIM): 5 Distance (FIM): 3=150 ft Gait Distance Comment: 300ft Gait Level of Assist: 5 Gait Assistive Device: FWW PT Plan Problem List Problem List: Activity Tolerance, Functional Strength, Balance, Gait, Transfer , Bed Mobility, ROM Treatment/Plan Treatment Plan: Continue Plan of Care Treatment Plan: Bed Mobility, Concurrent Therapy, Education, Functional Activity Rachel, Functional Strength, Gait, Therapeutic Exercise, Transfers Treatment Duration: Feb 02, 2018 Frequency: 11 times per week Estimated Hrs Per Day: .5 hour per day Patient and/or Family Agrees t: Yes Time/GCodes Time In: 1045 Time Out: 1105 Total Billed Treatment Time: 20 Total Billed Treatment 1, josyc 20 MARQUISE ESQUIVEL PT Jan 19, 2018 11:45
[2018-01-19 12:02] LABS: CALCIUM 8.2 MG/DL (8.5-10.1); CREATININE SERUM 3.04 MG/DL (0.60-1.30); POTASSIUM 4.9 MMOL/L (3.6-5.0)
[2018-01-19 12:46] VITALS: BP 122/75
--- NOTE | 2018-01-19 12:49 | Occupational Therapy Eval ---
OT Evaluation-General/PLF Medical Diagnosis Admission Date Jan 18, 2018 at 15:05 Medical Diagnosis: Hypoglycemia, hypotensive Onset Date: Jan 18, 2018 Therapy Diagnosis Therapy Diagnosis: Weakness Height/Weight Height (Feet): 5 Height (Inches): 9.00 Weight (Pounds): 253 Weight (Ounces): 9.0 Precautions Precautions/Isolations: Fall Prevention, Standard Precautions Safety Interventions: None Weight Bear Status Weight Bearing Restriction: Weight Bearing/Tolerated Referral Physician: Dat Patel DO Referral Reason: Activity Tolerance, Self Care, Evaluation/Treatment, Strengthening/ROM Medical History Pertinent Medical History: CABG, COPD, Renal Insufficiency, Smoking Additional Medical History cirrhosis, bilateral LE swelling. Current History Pt. came to hospital after laying for 8 days. Pt. does state that he was able to get up and "do things" in his home during that time, but that is unknown to this OT. Reviewed History: Yes Social History Home: Single Level Current Living Status: Alone Entry Into Home: Level Entry Steps Into Home: 0 ADL-Prior Level of Function ADL PLOF Comments Pt. reports that he drives and gets meals on wheels. States that he gets " drive thru" a lot also. Does state that he has not showered in 3 months because it made him nervous to. DME/Equipment: Tub/Shower DME/Equipment Comments Pt. states that he has a "flimsy" shower chair that he does not like. OT Current Status Subjective Pt. is very apprehensive about working with OT. Attempts to make jokes and talk his way from having to do anything. Continually changes subject and starts a story when OT mentions getting up. Pt. does eventually agree to it with gently encouragement. Appearance Pt. in bed. Smiles. Polite with OT. States that he wasn't supposed to come to this hospital and that we "just want my money." Mental Status/Objective Patient Orientation: Unable to Assess Current Upper Extremity ROM WFL ADL-Treatment Functional [place] Measure 0=Not Assessed/NA 4=Minimal Assistance 1=Total Assistance 5=Supervision or Setup 2=Maximal Assistance 6=Modified [place] 3=Moderate Assistance 7=Complete IndependenceIRFPAI Quality Coding Scale 6 Independent with activity with or without an assistive device 5 Patient requires set up or clean up by helper. Patient completes activity by themselves 4 Supervision or touching assist (CGA). [place] provide cues , steadying assist 3 The helper provides less than half the effort to complete the activity 2 The helper provides more than half the effort to complete the activity 1 Dependent. The helper does all the effort to complete an activity 7 Patient refused to complete or attempt activity 9 The patient did not perform the activity before the current illness or injury 88 Not attempted due to Medical conditions or safety concerns Bathing (FIM): 3 Lower Body Dressing (FIM): 2 Transfers (B, C, W/C) (FIM): 3 (Mod assist Supine-sit and scoot to HOB. Max assist sit-supine.) Other Treatments Pt. transfers to side of bed with mod assist. Pt. is able to wash face and chest, under arms. OT washes pt.s feet and legs. Noted significant dirt and skin buildup on feet and legs. Pt. also has multiple scratches all over legs that have dried blood in them. Multiple spots on chest and arms that resemble flea or bug bites. OT washes legs multiple times until washcloths aren't as dirty. Applied lotion to back and feet/legs. Pt. adamant that he does not want to wash antoinette area. OT encourages him multiple times, and offers to assist. Pt. will not allow OT to do this. Transferred back to bed. Nursing made aware of pt. declining antoinette care. Education OT Patient Education: Correct positioning, Modified ADL techniques, Progress toward Goal/Update tx plan, Purpose of tx/functional activities, Reviewed precautions, Rehab process, Transfer techniques Teaching Recipient: Patient Teaching Methods: Demonstration, Discussion Response to Teaching: Verbalize Understanding, Return Demonstration OT Short Term Goals Short Term Goals Time Frame: Feb 02, 2018 Eating(FIM): 4 Grooming(FIM): 4 Bathing(FIM): 4 Upper Body Dressing(FIM): 4 Lower Body Dressing(FIM): 4 Toileting(FIM): 5 Transfers (B,C,W/C) (FIM): 5 Toilet/Commode Transfer(FIM): 5 Additional Short Term Goals: 1-Demonstrate ADL Tasks, 2-Verbalize Understanding , 3-ImproveStrength/Rachel 1=Demonstrate adherence to instructed precautions during ADL tasks. 2=Patient will verbalize/demonstrate understanding of assistive devices/ modifications for ADL. 3=Patient will improve strength/tolerance for activity to enable patient to perform ADL's. OT Bulk Pallet Builder Goals Bulk Pallet Builder Goals Time Frame: Feb 16, 2018 Eating (FIM): 6 Grooming(FIM): 6 Bathing(FIM): 5 Upper Body Dressing(FIM): 5 Lower Body Dressing(FIM): 5 Toileting(FIM): 5 Transfers (B,C,W/C) (FIM): 6 Toilet/Commode Transfer(FIM): 6 Shower Transfer(FIM): 5 Additional Goals: 1-Demonstrate ADL Tasks, 2-Verbalize Understanding, 3- ImproveStrength/Rachel 1=Demonstrate adherence to instructed precautions during ADL tasks. 2=Patient will verbalize/demonstrate understanding of assistive devices/ modifications for ADL. 3=Patient will improve strength/tolerance for activity to enable patient to perform ADL's. OT Education/Plan Problem List/Assessment Assessment: Decreased Activ Tolerance, Decreased Safety Aware, Decreased UE Strength, Dependent Transfers, Impaired Bed Mobility, Impaired Cognition, Impaired Funct Balance, Impaired I ADL's, Impaired Self-Care Skills Discharge Recommendations Plan/Recommendations: Continue POC Therapy D/C Recommendations: 24 hr Supervision Treatment Plan/Plan of Care Treatment,Training & Education: Yes Patient would benefit from OT for education, treatment and training to promote independence in ADL's, mobility, safety and/or upper extremity function for ADL' s. Plan of Care: ADL Retraining, Functional Mobility, UE Funct Exercise/Act Treatment Duration: Feb 16, 2018 Frequency: 5 times per week Estimated Hrs Per Day: .25 hour per day Agreement: Yes Rehab Potential: Guarded Time/GCodes Start Time: 09:15 Stop Time: 10:00 Total Time Billed (hr/min): 45 Billed Treatment Time 1, EVH x 15minutes, ADL x 30minutes MATTIE HERNÁNDEZ OT Jan 19, 2018 12:49
--- NOTE | 2018-01-19 13:08 | Progress Note-Cardiology ---
Cardiology SOAP Progress Note Subjective: Still experiencing gen fatigue and weakness and malaise Does not report shortness of breath at rest Denies cp or palp or syncope Objective: I&O/Vital Signs 01/19/18 01/19/18 01/19/18 01/19/18 03:01 03:10 04:00 04:00 Temp 97.6 Pulse 60 Resp 16 B/P (MAP) 100/64 (76) Pulse Ox 98 100 100 O2 Delivery Vapotherm Vapotherm Vapotherm Vapotherm O2 Flow Rate 20.00 50.00 20.00 50.00 20.00 20.00 FiO2 70 50 01/19/18 01/19/18 01/19/18 01/19/18 06:48 07:00 08:30 08:30 Pulse 70 Pulse Ox 94 O2 Delivery Vapotherm Vapotherm Vapotherm O2 Flow Rate 20.00 20.00 20.00 FiO2 50 50 50 01/19/18 01/19/18 01/19/18 01/19/18 08:30 10:24 10:40 12:46 Temp 97.9 97.0 Pulse 67 65 Resp 20 16 B/P (MAP) 115/77 (90) 122/75 (91) Pulse Ox 98 98 96 O2 Delivery Vapotherm Vapotherm Vapotherm Vapotherm O2 Flow Rate 50.00 20.00 40.00 40.00 20.00 20.00 20.00 FiO2 50 01/19/18 12:47 O2 Delivery Vapotherm O2 Flow Rate 20.00 FiO2 40 01/18/18 23:59 Intake Total 740 ml Output Total 0 ml Balance 740 ml Weight (Pounds): 253 Weight (Ounces): 9.0 Weight (Calculated Kilograms): 115.118193 Constitutional: AAO x 3, well-developed, well-nourished Respiratory: No accessory muscle use; other (diminished air entry at both bases ) Cardiovascular: regular rate-rhythm, S1 and S2, systolic murmur (soft AIMEE at card base) Gastrointestional: No tender; distended; No guarding, No rebound; audible bowel sounds Extremities: No clubbing, No cyanosis; significant edema (bilateral leg edema) Neurologic/Psychiatric: grossly intact, power is 5/5 both on sides Skin: other (scratch melendrez and abrasions over the skin of both legs) Results/Procedures: Labs Laboratory Tests 01/18/18 13:23: Glucometer 111H 01/18/18 13:27: White Blood Count 5.1, Red Blood Count 4.82, Hemoglobin 13.5, Hematocrit 41, Mean Corpuscular Volume 85, Mean Corpuscular Hemoglobin 28, Mean Corpuscular Hemoglobin Concent 33, Red Cell Distribution Width 18.0H, Platelet Count 150, Mean Platelet Volume 11.3H, Neutrophils (%) (Auto) 81H, Lymphocytes (%) (Auto) 7L, Monocytes (%) (Auto) 11, Eosinophils (%) (Auto) 1, Basophils (%) (Auto) 0, Neutrophils # (Auto) 4.1, Lymphocytes # (Auto) 0.3L, Monocytes # (Auto) 0.6, Eosinophils # (Auto) 0.1, Basophils # (Auto) 0.0, Neutrophils % (Manual) 89, Lymphocytes % (Manual) 1, Monocytes % (Manual) 9, Eosinophils % (Manual) 0, Basophils % (Manual) 1, Band Neutrophils 0, Anisocytosis MODERATE, Prothrombin Time 19.1H, INR Comment 1.6H, Sodium Level 132L, Potassium Level 5.5H, Chloride Level 100, Carbon Dioxide Level 21, Anion Gap 11, Blood Urea Nitrogen 53H, Creatinine 2.75H, Estimat Glomerular Filtration Rate 23, BUN/Creatinine Ratio 19 , Glucose Level 127H, Lactic Acid Level 2.82*H, Calcium Level 8.9, Corrected Calcium 9.9, Total Bilirubin 3.2H, Aspartate Amino Transf (AST/SGOT) 21, Alanine Aminotransferase (ALT/SGPT) 15, Alkaline Phosphatase 68, Ammonia 50H, Total Creatine Kinase 28L, B-Type Natriuretic Peptide 3346.6H, Total Protein 8.3H, Albumin 2.8L 01/18/18 15:30: Lactic Acid Level 1.53 01/18/18 18:25: White Blood Count 5.5, Red Blood Count 4.97, Hemoglobin 14.2, Hematocrit 42, Mean Corpuscular Volume 85, Mean Corpuscular Hemoglobin 29, Mean Corpuscular Hemoglobin Concent 34, Red Cell Distribution Width 18.1H, Platelet Count 157, Mean Platelet Volume 11.2H, Prothrombin Time 18.6H, INR Comment 1.5H, Sodium Level 132L, Potassium Level 5.8H, Chloride Level 99, Carbon Dioxide Level 24, Anion Gap 9, Blood Urea Nitrogen 54H, Creatinine 2.84H, Estimat Glomerular Filtration Rate 22, BUN/Creatinine Ratio 19, Glucose Level 94, Calcium Level 9.1 , Corrected Calcium 10.0, Total Bilirubin 3.3H, Aspartate Amino Transf (AST/SGOT ) 22, Alanine Aminotransferase (ALT/SGPT) 16, Alkaline Phosphatase 70, B-Type Natriuretic Peptide 3521.9H, Total Protein 8.4H, Albumin 2.9L, Activated Partial Thromboplast Time 35, Troponin I < 0.30, Triglycerides Level 114, Cholesterol Level 92, LDL Cholesterol Direct 65, VLDL Cholesterol 23, HDL Cholesterol < 15L, Thyroid Stimulating Hormone (TSH) 7.35H 01/19/18 01:50: White Blood Count 5.3, Red Blood Count 4.48, Hemoglobin 13.1L, Hematocrit 38L, Mean Corpuscular Volume 85, Mean Corpuscular Hemoglobin 29, Mean Corpuscular Hemoglobin Concent 35, Red Cell Distribution Width 17.7H, Platelet Count 127L, Mean Platelet Volume 10.9H, Neutrophils (%) (Auto) 95H, Lymphocytes (%) (Auto) 3L, Monocytes (%) (Auto) 2, Eosinophils (%) (Auto) 0, Basophils (%) (Auto) 0, Neutrophils # (Auto) 5.1, Lymphocytes # (Auto) 0.2L, Monocytes # (Auto) 0.1, Eosinophils # (Auto) 0.0, Basophils # (Auto) 0.0, Sodium Level 133L, Potassium Level 5.7H, Chloride Level 101, Carbon Dioxide Level 18L, Anion Gap 14, Blood Urea Nitrogen 57H, Creatinine 3.08H, Estimat Glomerular Filtration Rate 20, BUN/ Creatinine Ratio 19, Glucose Level 130H, Calcium Level 8.4L, Corrected Calcium 9.4, Total Bilirubin 2.8H, Aspartate Amino Transf (AST/SGOT) 18, Alanine Aminotransferase (ALT/SGPT) 16, Alkaline Phosphatase 62, Troponin I < 0.30, Total Protein 7.4, Albumin 2.7L, Free Thyroxine 0.75 01/19/18 06:10: Urine Color AMBERH, Urine Clarity CLEAR, Urine pH 5, Urine Specific [place] 1.030H, Urine Protein 3+H, Urine Glucose (UA) NEGATIVE, Urine Ketones 1+H, Urine Nitrite POSITIVEH, Urine Bilirubin 2+H, Urine Urobilinogen 4H, Urine Leukocyte Esterase 2+H, Urine RBC (Auto) 1+H, Urine RBC NONE, Urine WBC 2-5, Urine Crystals PRESENTH, Urine Amorphous Sediment MOD DANIELA URATESH, Urine Bacteria LARGEH, Urine Casts PRESENT, Urine Hyaline Casts 2-5H, Urine Mucus SMALLH, Urine Culture Indicated YES 01/19/18 06:30: Lactic Acid Level 1.20 01/19/18 06:50: Blood Gas Puncture Site L RAD, Blood Gas Patient Temperature 97.3, Arterial Blood pH 7.29*L, Arterial Blood Partial Pressure CO2 53H, Arterial Blood Partial Pressure O2 72L, Arterial Blood HCO3 25, Arterial Blood Total CO2 26.4, Arterial Blood Oxygen Saturation 94, Arterial Blood Base Excess -1.2, Jacek Test YES-POS, Blood Gas Ventilator Setting NO, Blood Gas Inspired Oxygen 20 01/19/18 11:35: Sodium Level 134L, Potassium Level 4.9, Chloride Level 101, Carbon Dioxide Level 21, Anion Gap 12, Blood Urea Nitrogen 59H, Creatinine 3.04H, Estimat Glomerular Filtration Rate 21, BUN/Creatinine Ratio 19, Glucose Level 159H, Calcium Level 8.2L Laboratory Tests 01/18/18 13:27 01/18/18 18:25 01/19/18 01:50 01/19/18 11:35 A/P: Assessment: Acute renal failure of undetermined etiology, managed by the Hospitalist Svce ( Dr Spears) Hypotension and elevated lactic acid. Consider septicemia, managed by Dr Spears Elevated BNP, probably due to ac renal failure Chronic Hep-C and hepatic cirrhosis, managed by [facility] at [facility] CAD, s/p CABG in October 2010. MPI of 09/16/15 showed basal inf infarction with only minimal antoinette-infarct ischemia and LVEF 69%. Echo of 07/17/[address] Aparicio at [facility] [place], is reported to have shown LVEF 55%, RV overload, PASP approx 57 mmHg, mild to mod MR, severe TR H/o heavy alcohol use in the past, currently down to two beers a day (according to him) RBBB, chronic Chronic tobacco use H/o intolerance statin COPD Intolerance to enalapril (stopped at [facility] in November 2014 after he had presented with tongue swelling) Obesity with BMI approx 44 Plan: * Complex management due to multiple comorbidities * Agree with continuation of fluids and discontinuation of diuretics * Treat elev K * Monitor labs closely * Guarded prognosis * Consider transfer to tertiary care if renal failure progresses * I spoke with him and answered his questions BHARAT SOSA MD FACP FAC CCDS Jan 19, 2018 13:08
[2018-01-19 15:46] VITALS: BP 110/67
[2018-01-19 16:38] LABS: ABG BASE EXCESS 0.3 MMOL/L (-2.5-2.5); ABG OXYGEN SATURATION 91 % (94-100); ABG PCO2 49 MMHG (35-45); ABG PO2 60 MMHG (79-93); ABG TCO2 27.1 MMOL/L (21.0-31.0)
[2018-01-19 16:45] LABS: ABG PH 7.34 (7.37-7.43); ALLENS TEST YES-POS; INSPIRED O2 30%; PATIENT TEMP 97.3; VENTILATOR NO
[2018-01-19] MEDS: TAMSULOSIN 0.4 MG (FLOMAX) CAP PO SCH (18:08)
[2018-01-19] MEDS ORDERED: SOD POLYSTYRENE 30 GM/120 ML (KAYEXALATE) BULK BOTTLE PO NR (18:15)
[2018-01-19] MEDS: fentaNYL INJECTION 100 MCG/2 ML AMP IVP PRN ×2 (18:20→22:19)
[2018-01-19 19:32] VITALS: BP 98/63
[2018-01-19] MEDS: FAMOTIDINE 20 MG (PEPCID) TABLET PO SCH (19:34)
[2018-01-20] VITALS: BP 100/66
[2018-01-20] MEDS: NS IV 1000 ML 1,000 ML IV SCH ×4 (00:11→23:48)
[2018-01-20] MEDS: methylPREDNISolone 40 MG/ML (Solu-MEDROL) VIAL IV SCH ×5 (00:11→23:48)
[2018-01-20] MEDS: fentaNYL INJECTION 100 MCG/2 ML AMP IVP PRN ×5 (00:48→22:56)
[2018-01-20] MEDS: RT-ALBUTEROL/IPRATROPIUM 3 ML (DUONEB) VIAL INH SCH ×6 (02:55→22:36)
[2018-01-20 03:35] LABS: BASOPHILS % (AUTO) 0 % (0-10); EOSINOPHILS % (AUTO) 0 % (0-10); HEMATOCRIT 37 % (40-54); HEMOGLOBIN 12.5 G/DL (13.3-17.7); LYMPHOCYTES # (AUTO) 0.1 X 10^3 (1.0-4.0); LYMPHOCYTES % (AUTO) 2 % (12-44); MEAN CORPUSCULAR HEMOGLOBIN 29 PG (25-34); MEAN CORPUSCULAR HGB CONC 34 G/DL (32-36); MEAN CORPUSCULAR VOLUME 85 FL (80-99); MONOCYTES # (AUTO) 0.4 X 10^3 (0.0-1.0); MONOCYTES % (AUTO) 6 % (0-12); NEUTROPHILS # (AUTO) 5.8 X 10^3 (1.8-7.8); NEUTROPHILS % (AUTO) 92 % (42-75); PLATELET COUNT 119 10^3/uL (130-400); RED BLOOD COUNT 4.38 10^6/uL (4.35-5.85); WHITE BLOOD COUNT 6.2 10^3/uL (4.3-11.0)
[2018-01-20 03:55] LABS: ALBUMIN 2.5 GM/DL (3.2-4.5); BILIRUBIN,TOTAL 1.8 MG/DL (0.1-1.0); CREATININE SERUM 2.8 MG/DL (0.60-1.30); POTASSIUM 4.7 MMOL/L (3.6-5.0); TOTAL PROTEIN 7.3 GM/DL (6.4-8.2)
[2018-01-20 04:00] VITALS: BP 110/63
[2018-01-20] MEDS: ENOXAPARIN 40 MG/0.4 ML (LOVENOX) SYR SC SCH ×2 (06:50→17:32)
[2018-01-20 08:00] VITALS: BP 115/48
[2018-01-20] MEDS: cefTRIAXone FOR IV USE 1,000 MG in NS (IVPB) 50 ML IV SCH (08:11)
[2018-01-20] MEDS: ASPIRIN 81 MG CHEW (CHILDREN'S ASA) PO SCH (08:11)
[2018-01-20 12:00] VITALS: BP 112/56
--- NOTE | 2018-01-20 12:54 | Progress Note-Hospitalist ---
Subjective HPI/CC On Admission Date Seen by Provider: Jan 20, 2018 Time Seen by Provider: 11:00 CC: Found down at home on couch for 8 days HPI: This is a 67yoWM clinic patient of Dr Patel who presented to the ER after being found down at home on the cough after 8 days and the living conditions being described as atrocious. Patient was confused on admit to ER asking for a Porterhouse steak with Demerol. [facility]. Patient has improved today but required conscious sedation for myers catheter to be placed after the nurse called me at 1220am to report he had >1000cc in his bladder but once it was placed the UOP was only 200cc so there is a possibility the bladder scan was measuring other body fluid. His creatinine continues to decline and IVF is being given due to volume depletion it is of a concern that oliguria renal failure will worsen and require transfer to higher level of care tomorrow. Patient does not have any details to add to his story and his dyspnea and overall severe debility give rise to a very poor prognosis and little chance of recovery. Subjective/Events-last exam Creatinine has improved with IV fluids and catheter placement Patient remains on Vapotherm Patient is sound asleep and does not awaken during my exam Nurse thinks that patient has scabies Overall prognosis remains poor but monitor closely for any chance of recovery Review of Systems General: Fatigue Focused Exam Lactate Level 01/18/18 13:27: Lactic Acid Level 2.82*H 01/18/18 15:30: Lactic Acid Level 1.53 01/19/18 06:30: Lactic Acid Level 1.20 Objective Exam Vital Signs Vital Signs Date Time Temp Pulse Resp B/P (MAP) Pulse Ox O2 Delivery O2 Flow Rate FiO2 01/20/18 12:00 98.6 68 20 112/56 (74) 96 Vapotherm 30.00 20.00 01/20/18 12:00 30 Capillary Refill : Less Than 3 Seconds General Appearance: No Apparent Distress, WD/WN, Chronically ill Respiratory: Crackles, Decreased Breath Sounds Cardiovascular: Regular Rate, Rhythm Extremity: Pedal Edema Neurologic/Psychiatric: Other (sleeping with Vapotherm on) Results/Procedures Lab Laboratory Tests 01/20/18 03:28 Patient resulted labs reviewed. Assessment/Plan Assessment and Plan Assess & Plan/Chief Complaint Respiratory failure on Vapotherm Suspicion for scabies Acute renal failure Urinary retention Cirrhosis Elevated BNP Plan: Maintain Vapotherm Continue current regimen Poor prognosis overall Critical Care Critical Care: Critically Ill Patient Diagnosis/Problems Diagnosis/Problems (1) Acute renal failure Status: Acute (2) COPD (chronic obstructive pulmonary disease) Status: Chronic Qualifiers: COPD type: unspecified COPD Qualified Codes: J44.9 - Chronic obstructive pulmonary disease, unspecified (3) Debility Status: Chronic (4) Poor prognosis Status: Acute (5) Metabolic acidosis Status: Acute (6) Cirrhosis Status: Acute (7) Congestive heart failure Status: Acute Qualifiers: Heart failure type: unspecified Heart failure chronicity: unspecified Qualified Codes: I50.9 - Heart failure, unspecified Clinical Quality Measures DVT/VTE Risk/Contraindication: Risk Factor Score Per Nursin RFS Level Per Nursing on Admit: 4+=Very High LIZ CHERRY DO Jan 20, 2018 12:54
[2018-01-20] MEDS ORDERED: PERMETHRIN (ELIMITE) 5% CR 60 GM TUBE TOP ONE (13:00)
[2018-01-20 16:00] VITALS: BP 105/73
--- NOTE | 2018-01-20 16:21 | Progress Note-Cardiology ---
Cardiology SOAP Progress Note Subjective: Less weak Less short of breath No cp or palp or syncope Objective: I&O/Vital Signs 01/20/18 01/20/18 01/20/18 01/20/18 06:34 07:00 07:25 08:00 Temp 96.7 Pulse 70 Pulse Ox 97 O2 Delivery Vapotherm Vapotherm O2 Flow Rate 20.00 20.00 FiO2 50 30 01/20/18 01/20/18 01/20/18 01/20/18 08:00 09:00 10:19 12:00 Pulse 68 Resp 20 B/P (MAP) 115/48 (70) Pulse Ox 96 94 O2 Delivery Vapotherm Vapotherm Vapotherm Vapotherm O2 Flow Rate 50.00 20.00 20.00 20.00 20.00 FiO2 30 50 30 01/20/18 01/20/18 01/20/18 01/20/18 12:00 13:00 14:11 16:00 Temp 98.6 Pulse 68 65 Resp 20 B/P (MAP) 112/56 (74) Pulse Ox 96 95 O2 Delivery Vapotherm Vapotherm Vapotherm O2 Flow Rate 30.00 20.00 20.00 20.00 FiO2 50 30 01/20/18 00:00 Intake Total 2530 ml Output Total 375 ml Balance 2155 ml Weight (Pounds): 254 Weight (Ounces): 9.0 Weight (Calculated Kilograms): 115.038244 Constitutional: AAO x 3, well-developed, well-nourished Respiratory: No accessory muscle use; other (diminished air entry at both bases ) Cardiovascular: regular rate-rhythm, S1 and S2, systolic murmur (soft AIMEE at card base) Gastrointestional: No tender; distended; No guarding, No rebound; audible bowel sounds Extremities: No clubbing, No cyanosis; significant edema (bilateral leg edema) Neurologic/Psychiatric: grossly intact, power is 5/5 both on sides Skin: other (scratch melendrez and abrasions over the skin of both legs) Results/Procedures: Labs Laboratory Tests 01/20/18 03:28: White Blood Count 6.2, Red Blood Count 4.38, Hemoglobin 12.5L, Hematocrit 37L, Mean Corpuscular Volume 85, Mean Corpuscular Hemoglobin 29, Mean Corpuscular Hemoglobin Concent 34, Red Cell Distribution Width 18.0H, Platelet Count 119L, Mean Platelet Volume 11.0H, Neutrophils (%) (Auto) 92H, Lymphocytes (%) (Auto) 2L, Monocytes (%) (Auto) 6, Eosinophils (%) (Auto) 0, Basophils (%) (Auto) 0, Neutrophils # (Auto) 5.8, Lymphocytes # (Auto) 0.1L, Monocytes # (Auto) 0.4, Eosinophils # (Auto) 0.0, Basophils # (Auto) 0.0, Sodium Level 132L, Potassium Level 4.7, Chloride Level 101, Carbon Dioxide Level 22, Anion Gap 9, Blood Urea Nitrogen 60H, Creatinine 2.80H, Estimat Glomerular Filtration Rate 23, BUN/ Creatinine Ratio 21, Glucose Level 170H, Calcium Level 8.0L, Corrected Calcium 9.2, Total Bilirubin 1.8H, Aspartate Amino Transf (AST/SGOT) 16, Alanine Aminotransferase (ALT/SGPT) 13, Alkaline Phosphatase 60, Total Protein 7.3, Albumin 2.5L Microbiology 01/18/18 Blood Culture - Preliminary, Resulted No growth 01/19/18 Urine Culture - Preliminary, Resulted Enterococcus faecalis Staphylococcus epidermidis 01/20/18 Lice/Scabies Examination - Final, Complete Laboratory Tests 01/18/18 18:25 01/19/18 01:50 01/19/18 11:35 01/20/18 03:28 A/P: Assessment: Acute renal failure of undetermined etiology, managed by the Hospitalist Svce ( Dr Spears) Hypotension and elevated lactic acid. Consider septicemia, managed by Dr Spears Elevated BNP, probably due to ac renal failure Chronic Hep-C and hepatic cirrhosis, managed by [facility] at [facility] CAD, s/p CABG in October 2010. MPI of 09/16/15 showed basal inf infarction with only minimal antoinette-infarct ischemia and LVEF 69%. Echo of 07/17/[address] Aparicio at [facility], is reported to have shown LVEF 55%, RV overload, PASP approx 57 mmHg, mild to mod MR, severe TR H/o heavy alcohol use in the past, currently down to two beers a day (according to him) RBBB, chronic Chronic tobacco use H/o intolerance statin COPD Intolerance to enalapril (stopped at [facility] in November 2014 after he had presented with tongue swelling) Obesity with BMI approx 44 Plan: * Complex management due to multiple comorbidities * Agree with continuation of fluids and discontinuation of diuretics * Monitor labs closely * I spoke with him and answered his questions BHARAT SOSA MD FACP FACC CCDS Jan 20, 2018 16:21
[2018-01-20] MEDS: TAMSULOSIN 0.4 MG (FLOMAX) CAP PO SCH (17:32)
[2018-01-20] MEDS: ALPRAZolam 0.25 MG (XANAX) TAB PO PRN (18:23)
[2018-01-20 20:00] VITALS: BP 114/71
[2018-01-20] MEDS: FAMOTIDINE 20 MG (PEPCID) TABLET PO SCH (20:01)
[2018-01-21] VITALS (7 sets, daily range): BP systolic 106–139; BP diastolic 66–87
[2018-01-21] MEDS: RT-ALBUTEROL/IPRATROPIUM 3 ML (DUONEB) VIAL INH SCH ×5 (02:39→19:15)
[2018-01-21 03:16] LABS: BASOPHILS % (AUTO) 0 % (0-10); EOSINOPHILS % (AUTO) 0 % (0-10); HEMATOCRIT 37 % (40-54); HEMOGLOBIN 12.8 G/DL (13.3-17.7); LYMPHOCYTES # (AUTO) 0.1 X 10^3 (1.0-4.0); LYMPHOCYTES % (AUTO) 1 % (12-44); MEAN CORPUSCULAR HEMOGLOBIN 29 PG (25-34); MEAN CORPUSCULAR HGB CONC 34 G/DL (32-36); MEAN CORPUSCULAR VOLUME 85 FL (80-99); MEAN PLATELET VOLUME 10.9 FL (7.4-10.4); MONOCYTES # (AUTO) 0.3 X 10^3 (0.0-1.0); MONOCYTES % (AUTO) 5 % (0-12); NEUTROPHILS % (AUTO) 94 % (42-75); PLATELET COUNT 109 10^3/uL (130-400); RED BLOOD COUNT 4.39 10^6/uL (4.35-5.85); RED CELL DISTRIBUTION WIDTH 18.1 % (10.0-14.5); WHITE BLOOD COUNT 7.4 10^3/uL (4.3-11.0)
[2018-01-21 03:58] LABS: ALBUMIN 2.8 GM/DL (3.2-4.5); BILIRUBIN,TOTAL 1.4 MG/DL (0.1-1.0); CALCIUM 8.1 MG/DL (8.5-10.1); CREATININE SERUM 2.55 MG/DL (0.60-1.30); TOTAL PROTEIN 7.6 GM/DL (6.4-8.2)
--- NOTE | 2018-01-21 05:07 | Pulmonary Progress Note ---
Subjective Time Seen by Provider: 05:26 Subjective/Events-last exam pt still requiring high flow oxygen and desaturates quickly Sepsis Event Evaluation Height, Weight, BMI Height: 5'9.00" Weight: 254lbs. 9.0oz. 115.275293yf; 36.2 BMI Method:Estimated Focused Exam Lactate Level 01/18/18 13:27: Lactic Acid Level 2.82*H 01/18/18 15:30: Lactic Acid Level 1.53 01/19/18 06:30: Lactic Acid Level 1.20 Exam Exam Vital Signs Date Time Temp Pulse Resp B/P (MAP) Pulse Ox O2 Delivery O2 Flow Rate FiO2 01/21/18 04:00 Vapotherm 20.00 50 01/21/18 04:00 97.1 78 20 120/87 (98) 91 Vapotherm 50.00 20.00 01/21/18 02:39 92 Vapotherm 20.00 50 01/21/18 01:00 70 01/21/18 00:00 98.0 72 18 106/69 (81) 92 Vapotherm 50.00 20.00 01/21/18 00:00 Vapotherm 20.00 50 01/20/18 22:36 94 Vapotherm 20.00 50 01/20/18 21:00 Vapotherm 20.00 50 01/20/18 20:00 97.6 76 21 114/71 (85) 95 Vapotherm 50.00 20.00 01/20/18 20:00 Vapotherm 20.00 30 01/20/18 19:00 62 01/20/18 18:50 91 Vapotherm 20.00 50 01/20/18 16:00 Vapotherm 20.00 30 01/20/18 16:00 96.9 65 20 105/73 (84) 97 Vapotherm 50.00 20.00 01/20/18 14:11 95 Vapotherm 20.00 50 01/20/18 13:00 65 01/20/18 12:00 98.6 68 20 112/56 (74) 96 Vapotherm 50.00 20.00 01/20/18 12:00 Vapotherm 20.00 30 01/20/18 10:19 94 Vapotherm 20.00 50 01/20/18 09:00 Vapotherm 20.00 30 01/20/18 08:00 68 20 115/48 (70) 96 Vapotherm 50.00 20.00 01/20/18 08:00 Vapotherm 20.00 30 01/20/18 07:25 96.7 01/20/18 07:00 70 01/20/18 06:34 97 Vapotherm 20.00 50 I & O 01/21/18 07:00 Intake Total 970 ml Output Total 750 ml Balance 220 ml Height & Weight Height: 5'9.00" Weight: 254lbs. 9.0oz. 115.058994gk; 36.2 BMI Method:Estimated General Appearance: WD/WN, Anxious, Chronically ill, Mild Distress HEENT: PERRL/EOMI, Normal ENT Inspection, Pharynx Normal Neck: Full Range of Motion, Normal Inspection, Non Tender, Supple, Carotid Bruit Respiratory: Crackles, Decreased Breath Sounds Cardiovascular: Regular Rate, Rhythm Capillary Refill: Less Than 3 Seconds Gastrointestinal: normal bowel sounds, non tender, soft Extremity: Pedal Edema Neurologic/Psychiatric: Other (sleeping with Vapotherm on) Skin: Normal Color, Warm/Dry Lymphatic: No Adenopathy Results Lab Laboratory Tests 01/19/18 11:35 01/20/18 03:28 01/21/18 03:07 Assessment/Plan Assessment/Plan Post obstructive uropathy probably secondary to BPH-- -Check bilateral renal US -Start Flomax Hyperbilirubinemia -Check RUQ US Hypoxia - requiring high flow oxygen with Vapotherm -Will give lasix 40mg X 1 -Decrease IVF -CXR is pending -Vapotherm Acute on chronic renal failure secondary to post obstruction -Probably close to baseline Cr now Metabolic acidosis -Will give 2 amps of Bicarb Elevated TSH - probably hypothyroid -Check T4,T3 -It does not appear pt is home thyroid replacement at home. Morbid obesity probable OHS Hx of hep C Hyponatremia CARMEN SÁNCHEZ DO Jan 21, 2018 05:07
[2018-01-21] MEDS ORDERED: FUROSEMIDE 40 MG/4 ML INJ (LASIX) ONE (05:13)
[2018-01-21] MEDS ORDERED: SODIUM BICARB 8.4% 50 MEQ/50 ML (ABBOTT) SYR ONE (05:13)
[2018-01-21] MEDS ORDERED: SODIUM BICARB 8.4% 50 MEQ/50 ML (ABBOTT) SYR IV ONE (05:15)
[2018-01-21] MEDS: ALPRAZolam 0.25 MG (XANAX) TAB PO PRN (05:20)
[2018-01-21 05:31] LABS: MAGNESIUM 2.2 MG/DL (1.8-2.4); PHOSPHORUS 4.8 MG/DL (2.3-4.7)
[2018-01-21] MEDS: ENOXAPARIN 40 MG/0.4 ML (LOVENOX) SYR SC SCH (05:31)
[2018-01-21] MEDS: methylPREDNISolone 40 MG/ML (Solu-MEDROL) VIAL IV SCH ×4 (05:31→23:18)
--- NOTE | 2018-01-21 06:32 | Diagnostic Imaging Report ---
EXAMINATION: Chest radiograph, portable AP view. DATE: January 21, 2018 at 0518 hours. INDICATION: 67-year-old male, shortness of breath. COMPARISON: January 18, 2018. FINDINGS: There are median sternotomy wires. There is additional midline thoracic hardware present. Stable overall appearance of the cardiomediastinal silhouette. There is no identified pneumothorax. There is a moderate to large left and [id number]-[id number] right pleural effusion. There are multifocal lung opacities bilaterally which are essentially unchanged since the comparison exam. IMPRESSION: 1. Grossly unchanged nonspecific multifocal lung consolidation bilaterally with moderate to large left and small to moderate right pleural effusion. Dictated by: Dictated on workstation # [id number]
--- NOTE | 2018-01-21 09:07 | Diagnostic Imaging Report ---
PROCEDURE: CT chest without contrast. TECHNIQUE: Multiple contiguous axial images were obtained through the chest without the use of intravenous contrast. DATE: January 21, 2018. COMPARISON: Chest radiograph January 21, 2018. CT chest May 04, 2009. INDICATION: 67-year-old male, hypoxia. Shortness of breath. PROCEDURE: Axial noncontrasted CT images of the chest. Noncontrasted limits the evaluation of the mediastinum and vascular structures. FINDINGS: There is no identified pulmonary nodule or lung mass. There is respiratory motion artifact. There is a small to moderate left pleural effusion with slightly thick left pleural margins. This raises concern for potential complicated pleural effusion which may potentially relate to infection and/or malignancy. There is consolidation in the left lower lobes adjacent to the pleural effusion which may potentially reflect atelectasis although is not specific. There is also nonspecific right lower lobe airspace consolidation. Predominantly linear opacities in the right upper lobe may reflect atelectasis although are nonspecific. There is a vogre-hh-dfekecnm right pleural effusion. There are coronary artery calcifications and additional areas of atherosclerotic disease. The heart is enlarged. There is no pericardial effusion. There is no identified abnormally enlarged mediastinal or axillary lymph node which meets CT size criteria for adenopathy. There is bilateral gynecomastia. There is diffuse subcutaneous edema. There are vascular calcifications adjacent to both kidneys. There is a partially visualized moderate volume ascites. Additional limited evaluation of the visualized portions of the upper abdomen is unremarkable. There are degenerative changes of the spine. There are median sternotomy wires. There are left glenohumeral degenerative changes. There is no identified acute bony abnormality. IMPRESSION: 1. Mild/moderate left pleural effusion with somewhat thick pleural margins concerning for a complicated pleural effusion which could relate potentially to infection and/or malignancy. Recommend correlation with pleural fluid analysis of causative etiology is unknown. 2. Small to moderate right pleural effusion. 3. Linear opacities in the right upper lobe and dependently within the right lower lobe and left lower lobe which may potentially reflect atelectasis although are nonspecific. 4. Cardiomegaly with bilateral gynecomastia and diffuse subcutaneous edema. Partially visualized moderate volume ascites. Dictated by: Dictated on workstation # [id number]
[2018-01-21] MEDS: cefTRIAXone FOR IV USE 1,000 MG in NS (IVPB) 50 ML IV SCH (09:08)
[2018-01-21] MEDS: ASPIRIN 81 MG CHEW (CHILDREN'S ASA) PO SCH (09:08)
--- NOTE | 2018-01-21 09:21 | Physical Therapy Daily Note ---
PT Daily Note-Current Subjective Pt laying Supine in bed. Pt agrees to PT. Pt is very drowsy and says it meds that Nurse just gave. Pt is difficult to keep awake during tx. Pain Numeric Pain Scale: 5-Moderate Pain Pain Description: Tightness Comment: Pt reports stiffness throughout body. AUTOMOBILE REPOSSESSOR encourages movement. Mental Status Patient Orientation: Person, Place, Situation Attachments: Central Line, Oxygen, Goldberg Catheter Transfers Functional [place] Measure 0=Not Assessed/NA 4=Minimal Assistance 1=Total Assistance 5=Supervision or Setup 2=Maximal Assistance 6=Modified [place] 3=Moderate Assistance 7=Complete IndependenceIRFPAI Quality Coding Scale 6 Independent with activity with or without an assistive device 5 Patient requires set up or clean up by helper. Patient completes activity by themselves 4 Supervision or touching assist (CGA). Lamar provide cues , steadying assist 3 The helper provides less than half the effort to complete the activity 2 The helper provides more than half the effort to complete the activity 1 Dependent. The helper does all the effort to complete an activity 7 Patient refused to complete or attempt activity 9 The patient did not perform the activity before the current illness or injury 88 Not attempted due to Medical conditions or safety concerns Weight Bearing Right Lower Extremity: Right Full Weight Bearing Left Lower Extremity: Left Full Weight Bearing Exercises Supine Ex: Ankle pumps, Quad Set, Heel Slides, Hip abd/add Supine Reps: 20 Treatments Pt completes Supine Ex in bed with a couple of short rest breaks. AUTOMOBILE REPOSSESSOR has to wake pt several times during Ex. Assessment Current Status: Fair Progress Pt reports feeling better and able to complete Ex with AAROM at times. Pt reports feeling stiff. AUTOMOBILE REPOSSESSOR encourages pt to move as much and often as pt can to prevent stiffness. PT Short Term Goals Short Term Goals Time Frame: Feb 02, 2018 Transfers (B,C,W/C) (FIM): 5 Gait (FIM): 5 Distance (FIM): 3=150 ft Gait Distance Comment: 300ft Gait Level of Assist: 5 Gait Assistive Device: FWW PT Plan Problem List Problem List: Activity Tolerance, Functional Strength, Safety, Balance, Gait, Transfer, Bed Mobility Treatment/Plan Treatment Plan: Continue Plan of Care Treatment Plan: Bed Mobility, Concurrent Therapy, Education, Functional Activity Rachel, Functional Strength, Gait, Therapeutic Exercise, Transfers Treatment Duration: Feb 02, 2018 Frequency: 11 times per week Estimated Hrs Per Day: .5 hour per day Patient and/or Family Agrees t: Yes Safety Risks/Education Patient Education: Transfer Techniques, Correct Positioning, Disease Process, Safety Issues Teaching Recipient: Patient Teaching Methods: Discussion Response to Teaching: Verbalize Understanding Time/GCodes Time In: 835 Time Out: 853 Total Billed Treatment Time: 18 Total Billed Treatment 1, EX (18m) G Codes Necessary: JACEY Laura PTA Jan 21, 2018 09:21
--- NOTE | 2018-01-21 12:36 | Progress Note-Cardiology ---
Cardiology SOAP Progress Note Subjective: Somewhat stronger and less short of breath No cp or palp or syncope Objective: I&O/Vital Signs 01/21/18 01/21/18 01/21/18 01/21/18 01:00 02:39 04:00 04:00 Temp 97.1 Pulse 70 78 Resp 20 B/P (MAP) 120/87 (98) Pulse Ox 92 91 O2 Delivery Vapotherm Vapotherm Vapotherm O2 Flow Rate 20.00 50.00 20.00 20.00 FiO2 50 50 01/21/18 01/21/18 01/21/18 01/21/18 06:58 07:00 07:05 08:00 Pulse 83 88 Pulse Ox 93 93 95 O2 Delivery Vapotherm Vapotherm O2 Flow Rate 20.00 20.00 FiO2 50 50 50 01/21/18 01/21/18 01/21/18 01/21/18 08:00 09:00 10:47 11:00 Temp 97.3 Pulse 85 Resp 18 B/P (MAP) 120/73 (89) Pulse Ox 95 97 96 O2 Delivery Vapotherm Vapotherm High Flow N/C High Flow N/C O2 Flow Rate 20.00 50.00 10.00 8.00 20.00 FiO2 50 01/21/18 01/21/18 12:00 12:00 Temp 97.3 Pulse 83 Resp 18 B/P (MAP) 108/66 (80) Pulse Ox 96 O2 Delivery High Flow N/C High Flow N/C O2 Flow Rate 8.00 8.00 01/21/18 00:00 Intake Total 970 ml Output Total 750 ml Balance 220 ml Weight (Pounds): 264 Weight (Ounces): 9.0 Weight (Calculated Kilograms): 119.971801 Constitutional: AAO x 3, well-developed, well-nourished Respiratory: No accessory muscle use; other (diminished air entry at both bases ) Cardiovascular: regular rate-rhythm, S1 and S2, systolic murmur (soft AIMEE at card base) Gastrointestional: No tender; distended; No guarding, No rebound; audible bowel sounds Extremities: No clubbing, No cyanosis; significant edema (bilateral leg edema) Neurologic/Psychiatric: grossly intact, power is 5/5 both on sides Skin: other (scratch melendrez and abrasions over the skin of both legs) Results/Procedures: Labs Laboratory Tests 01/21/18 03:07: White Blood Count 7.4, Red Blood Count 4.39, Hemoglobin 12.8L, Hematocrit 37L, Mean Corpuscular Volume 85, Mean Corpuscular Hemoglobin 29, Mean Corpuscular Hemoglobin Concent 34, Red Cell Distribution Width 18.1H, Platelet Count 109L, Mean Platelet Volume 10.9H, Neutrophils (%) (Auto) 94H, Lymphocytes (%) (Auto) 1L, Monocytes (%) (Auto) 5, Eosinophils (%) (Auto) 0, Basophils (%) (Auto) 0, Neutrophils # (Auto) 7.0, Lymphocytes # (Auto) 0.1L, Monocytes # (Auto) 0.3, Eosinophils # (Auto) 0.0, Basophils # (Auto) 0.0, Sodium Level 134L, Potassium Level 5.0, Chloride Level 103, Carbon Dioxide Level 19L, Anion Gap 12, Blood Urea Nitrogen 59H, Creatinine 2.55H, Estimat Glomerular Filtration Rate 25, BUN/ Creatinine Ratio 23, Glucose Level 146H, Calcium Level 8.1L, Corrected Calcium 9.1, Phosphorus Level 4.8H, Magnesium Level 2.2, Total Bilirubin 1.4H, Aspartate Amino Transf (AST/SGOT) 15, Alanine Aminotransferase (ALT/SGPT) 15, Alkaline Phosphatase 64, B-Type Natriuretic Peptide 1142.6H, Total Protein 7.6, Albumin 2.8L Microbiology 01/18/18 Blood Culture - Preliminary, Resulted No growth 01/19/18 Urine Culture - Preliminary, Resulted Enterococcus faecalis Staphylococcus epidermidis 01/20/18 Lice/Scabies Examination - Final, Complete Laboratory Tests 01/20/18 03:28 01/21/18 03:07 A/P: Assessment: Acute renal failure of undetermined etiology, managed by the Hospitalist Svjassi ( Dr Spears) Hypotension and elevated lactic acid. Consider septicemia, managed by Dr Spears Elevated BNP, probably due to ac renal failure Chronic Hep-C and hepatic cirrhosis, managed by [facility] at [facility] CAD, s/p CABG in October 2010. MPI of 09/16/15 showed basal inf infarction with only minimal antoinette-infarct ischemia and LVEF 69%. Echo of 07/17/[address] Aparicio at [facility], is reported to have shown LVEF 55%, RV overload, PASP approx 57 mmHg, mild to mod MR, severe TR H/o heavy alcohol use in the past, currently down to two beers a day (according to him) RBBB, chronic Chronic tobacco use H/o intolerance statin COPD Intolerance to enalapril (stopped at [facility] in November 2014 after he had presented with tongue swelling) Obesity with BMI approx 39 Plan: * Complex management due to multiple comorbidities * Monitor labs closely * Lower enoxaparin to DVT prophylaxis dose (adjust for renal failure) * I spoke with him and answered his questions BHARAT SOSA MD FACP FAC CCDS Jan 21, 2018 12:36
--- NOTE | 2018-01-21 14:12 | Progress Note-Hospitalist ---
Progress Note Progress Notes/Assess & Plan Date Seen 01/21/18 Time Seen by Provider: 14:08 Assessment & Plan The patient is a 67-year-old white male who was admitted 3 days ago after he presented to the emergency room. He apparently he had been found down at home and was unable to ambulate. He stated that this had been an increasing problem for several days. He appeared quite dehydrated. His renal function showed a creatinine of 3.04 at that time. Subsequently 2 days ago the creatinine was 2.8 and today 2.55. I was able to find a previous creatinine of 1.31 on . He has an elevated BNP and in examining the old lab I found a BNP of 1412 on . He is known to be an alcoholic and in addition apparently has hepatitis C. He also reports that after his bypass surgery in 2015 he has taken Lasix on a daily basis. Physical exam: He is alert and pleasant. Lungs are clear to auscultation. CV is regular without murmur. There is no pedal edema. Impression acute renal failure. 2.known history of advanced coronary artery disease. 3.alcoholism and hepatitis C. Plan: Continue IV fluids and support. Focused Exam Lactate Level 01/18/18 15:30: Lactic Acid Level 1.53 01/19/18 06:30: Lactic Acid Level 1.20 KRISTINA VALDEZ MD Jan 21, 2018 14:12
--- NOTE | 2018-01-21 15:33 | Occupational Ther Daily Note ---
OT Current Status-Daily Note Subjective Pt seen in room, up in bed, agreeable to OT. No pain mentioned. Appearance Alert, cooperative Mental Status/Objective Functional [place] Measure 0=Not Assessed/NA 4=Minimal Assistance 1=Total Assistance 5=Supervision or Setup 2=Maximal Assistance 6=Modified [place] 3=Moderate Assistance 7=Complete [place] Other Treatment Pt completed 10 reps of three different bilat UE exercises with yellow theraband to strengthen arms to help with transfers and ADLs. Pt educ on the different exercises and occasional verbal and physical assist to do exercises correctly. He was able to track reps himself and switch sides without difficulty. pt left up in bed, all needs met. Education OT Patient Education: Exercise program Teaching Recipient: Patient Teaching Methods: Demonstration Response to Teaching: Verbalize Understanding, Return Demonstration, Reinforcement Needed OT Short Term Goals Short Term Goals Time Frame: Feb 02, 2018 Eating(FIM): 4 Grooming(FIM): 4 Bathing(FIM): 4 Upper Body Dressing(FIM): 4 Lower Body Dressing(FIM): 4 Toileting(FIM): 5 Transfers (B,C,W/C) (FIM): 5 Toilet/Commode Transfer(FIM): 5 Additional Short Term Goals: 1-Demonstrate ADL Tasks, 2-Verbalize Understanding , 3-ImproveStrength/Rachel 1=Demonstrate adherence to instructed precautions during ADL tasks. 2=Patient will verbalize/demonstrate understanding of assistive devices/ modifications for ADL. 3=Patient will improve strength/tolerance for activity to enable patient to perform ADL's. OT Development Manager Goals Development Manager Goals Time Frame: Feb 16, 2018 Eating (FIM): 6 Grooming(FIM): 6 Bathing(FIM): 5 Upper Body Dressing(FIM): 5 Lower Body Dressing(FIM): 5 Toileting(FIM): 5 Transfers (B,C,W/C) (FIM): 6 Toilet/Commode Transfer(FIM): 6 Shower Transfer(FIM): 5 Additional Goals: 1-Demonstrate ADL Tasks, 2-Verbalize Understanding, 3- ImproveStrength/Rachel 1=Demonstrate adherence to instructed precautions during ADL tasks. 2=Patient will verbalize/demonstrate understanding of assistive devices/ modifications for ADL. 3=Patient will improve strength/tolerance for activity to enable patient to perform ADL's. OT Education/Plan Discharge Recommendations Plan/Recommendations: Continue POC Treatment Plan/Plan of Care Patient would benefit from OT for education, treatment and training to promote independence in ADL's, mobility, safety and/or upper extremity function for ADL' s. Plan of Care: ADL Retraining, Functional Mobility, UE Funct Exercise/Act Treatment Duration: Feb 16, 2018 Frequency: 5 times per week Estimated Hrs Per Day: .25 hour per day Agreement: Yes Rehab Potential: Guarded Time/GCodes Start Time: 15:05 Stop Time: 15:17 Total Time Billed (hr/min): 12 Billed Treatment Time visit, 12 minutes exercise ALEX LEE OT Jan 21, 2018 15:33
[2018-01-21] MEDS: TAMSULOSIN 0.4 MG (FLOMAX) CAP PO SCH (17:27)
[2018-01-21] MEDS: NS IV 1000 ML 1,000 ML IV SCH (17:41)
[2018-01-21] MEDS: FAMOTIDINE 20 MG (PEPCID) TABLET PO SCH (20:24)
[2018-01-21] MEDS: fentaNYL INJECTION 100 MCG/2 ML AMP IVP PRN (23:47)
[2018-01-22] VITALS: BP 134/84
[2018-01-22] MEDS: RT-ALBUTEROL/IPRATROPIUM 3 ML (DUONEB) VIAL INH SCH ×7 (00:13→21:24)
[2018-01-22 04:00] VITALS: BP 161/92
[2018-01-22] MEDS: methylPREDNISolone 40 MG/ML (Solu-MEDROL) VIAL IV SCH (04:58)
--- NOTE | 2018-01-22 06:25 | Pulmonary Progress Note ---
Subjective Time Seen by Provider: 06:45 Subjective/Events-last exam Pt still requiring a lot of Oxygen. Sepsis Event Evaluation Height, Weight, BMI Height: 5'9.00" Weight: 256lbs. 9.0oz. 116.181527fn; 36.2 BMI Method:Estimated Focused Exam Lactate Level 01/19/18 06:30: Lactic Acid Level 1.20 Exam Exam Vital Signs Date Time Temp Pulse Resp B/P (MAP) Pulse Ox O2 Delivery O2 Flow Rate FiO2 01/22/18 04:00 97.2 105 22 161/92 (115) 93 High Flow N/C 8.00 01/22/18 03:28 93 High Flow N/C 8.00 01/22/18 01:00 99 01/22/18 00:00 97.1 99 20 134/84 (101) 96 High Flow N/C 8.00 01/21/18 21:00 High Flow N/C 8.00 01/21/18 19:15 93 High Flow N/C 8.00 01/21/18 19:13 97.7 93 20 139/74 (95) 97 High Flow N/C 8.00 01/21/18 19:00 90 01/21/18 17:40 97.3 93 20 129/76 (93) 95 High Flow N/C 8.00 01/21/18 17:35 High Flow N/C 8.00 01/21/18 16:03 97.9 89 18 138/84 (102) 98 High Flow N/C 8.00 01/21/18 16:00 97 High Flow N/C 8.00 01/21/18 14:30 97 High Flow N/C 8.00 01/21/18 13:00 86 01/21/18 12:00 96 High Flow N/C 8.00 01/21/18 12:00 97.3 83 18 108/66 (80) High Flow N/C 8.00 01/21/18 11:00 High Flow N/C 8.00 01/21/18 10:47 96 High Flow N/C 10.00 01/21/18 09:00 97.3 85 18 120/73 (89) 97 Vapotherm 50.00 20.00 01/21/18 08:00 95 Vapotherm 20.00 50 01/21/18 08:00 95 Vapotherm 20.00 50 01/21/18 07:05 88 93 50 01/21/18 07:00 83 01/21/18 06:58 93 Vapotherm 20.00 50 I & O 01/22/18 07:00 Intake Total 3502 ml Output Total 2575 ml Balance 927 ml Height & Weight Height: 5'9.00" Weight: 256lbs. 9.0oz. 116.627399jy; 36.2 BMI Method:Estimated General Appearance: WD/WN, Anxious, Chronically ill, Mild Distress HEENT: PERRL/EOMI, Normal ENT Inspection, Pharynx Normal Neck: Full Range of Motion, Normal Inspection, Non Tender, Supple, Carotid Bruit Respiratory: Crackles, Decreased Breath Sounds Cardiovascular: Regular Rate, Rhythm Capillary Refill: Less Than 3 Seconds Gastrointestinal: normal bowel sounds, non tender, soft Extremity: Pedal Edema Neurologic/Psychiatric: Other (sleeping with Vapotherm on) Skin: Normal Color, Warm/Dry Lymphatic: No Adenopathy Results Lab Laboratory Tests 01/21/18 03:07 Assessment/Plan Assessment/Plan Post obstructive uropathy probably secondary to BPH-- -Check bilateral renal US -Flomax Hyperbilirubinemia -Check RUQ US Hypoxia -with bilateral Right >Left pleural effusions -Lasix -Decrease IVF -CXR is pending -Vapotherm Acute on chronic renal failure secondary to post obstruction -CT scan reviewed and shows ascites, and bilateral pleural effusions along with subcutaneous edema -Will consult radiology for thoracentesis of left pleural fluid this is most likely a complicated pleural effusion -Repeat labs and CXR are pending Ascites with hx of hep C -US of abdomen is pending -PT may need paracentesis too. Metabolic acidosis -Monitor Morbid obesity probable OHS Hx of hep C Hyponatremia -Monitor CARMEN SÁNCHEZ DO Jan 22, 2018 06:25
--- NOTE | 2018-01-22 07:38 | Progress Note (SOAP) ---
Subjective Time Seen by Provider: 07:35 Subjective/Events-last exam Breath. Patient has swelling of the abdomen and ascites. Patient has swelling of legs. Patient history of drinking, smoking, COPD Patient turn cyanotic when nasal oxygen was off during the night Objective Exam Vital Signs Date Time Temp Pulse Resp B/P (MAP) Pulse Ox O2 Delivery O2 Flow Rate FiO2 01/22/18 07:00 90 01/22/18 06:36 92 High Flow N/C 8.00 01/22/18 04:00 97.2 105 22 161/92 (115) 93 High Flow N/C 8.00 01/22/18 03:28 93 High Flow N/C 8.00 01/22/18 01:00 99 01/22/18 00:00 97.1 99 20 134/84 (101) 96 High Flow N/C 8.00 01/21/18 21:00 High Flow N/C 8.00 01/21/18 19:15 93 High Flow N/C 8.00 01/21/18 19:13 97.7 93 20 139/74 (95) 97 High Flow N/C 8.00 01/21/18 19:00 90 01/21/18 17:40 97.3 93 20 129/76 (93) 95 High Flow N/C 8.00 01/21/18 17:35 High Flow N/C 8.00 01/21/18 16:03 97.9 89 18 138/84 (102) 98 High Flow N/C 8.00 01/21/18 16:00 97 High Flow N/C 8.00 01/21/18 14:30 97 High Flow N/C 8.00 01/21/18 13:00 86 01/21/18 12:00 96 High Flow N/C 8.00 01/21/18 12:00 97.3 83 18 108/66 (80) High Flow N/C 8.00 01/21/18 11:00 High Flow N/C 8.00 01/21/18 10:47 96 High Flow N/C 10.00 01/21/18 09:00 97.3 85 18 120/73 (89) 97 Vapotherm 50.00 20.00 01/21/18 08:00 95 Vapotherm 20.00 50 01/21/18 08:00 95 Vapotherm 20.00 50 I & O 01/22/18 07:00 Intake Total 3502 ml Output Total 2575 ml Balance 927 ml Capillary Refill : Less Than 3 Seconds General Appearance: No Apparent Distress, Obese, Other (Diabetes) HEENT: Normal ENT Inspection Neck: Normal Inspection Respiratory: Decreased Breath Sounds Cardiovascular: Regular Rate, Rhythm, No Murmur Gastrointestinal: other (Ascites) Extremity: Pedal Edema Results Lab Microbiology 01/18/18 Blood Culture - Preliminary, Resulted No growth 01/19/18 Urine Culture - Preliminary, Resulted Enterococcus faecalis Staphylococcus epidermidis 01/20/18 Lice/Scabies Examination - Final, Complete Assessment/Plan Assessment/Plan Assess & Plan/Chief Complaint Renal insufficiency acute and chronic area Cirrhosis. Congestive heart failure exacerbation. COPD. Alcoholism. Tobaccoism. CHF Clinical Quality Measures DVT/VTE Risk/Contraindication: Risk Factor Score Per Nursin RFS Level Per Nursing on Admit: 4+=Very High LUZ ARZOLA DO Jan 22, 2018 07:38
--- NOTE | 2018-01-22 07:39 | Diagnostic Imaging Report ---
INDICATION: Shortness of breath. Hypoxia. There is bilateral airspace disease. There is a left pleural effusion. There is cardiomegaly. Some underlying central pulmonary venous congestion cannot be excluded. There is no pneumothorax. The mediastinum is unremarkable. There has been a previous median sternotomy and coronary bypass graft. IMPRESSION: Diffuse bilateral airspace disease with a left pleural effusion. Cardiomegaly. Some underlying central pulmonary venous congestion cannot be excluded. Dictated by: Dictated on workstation # [id number]
[2018-01-22] MEDS: ENOXAPARIN 40 MG/0.4 ML (LOVENOX) SYR SC SCH (07:42)
[2018-01-22] MEDS: ASPIRIN 81 MG CHEW (CHILDREN'S ASA) PO SCH (07:45)
[2018-01-22 07:48] LABS: BASOPHILS % (AUTO) 0 % (0-10); EOSINOPHILS % (AUTO) 0 % (0-10); HEMATOCRIT 38 % (40-54); HEMOGLOBIN 12.3 G/DL (13.3-17.7); LYMPHOCYTES # (AUTO) 0.1 X 10^3 (1.0-4.0); LYMPHOCYTES % (AUTO) 2 % (12-44); MEAN CORPUSCULAR HEMOGLOBIN 28 PG (25-34); MEAN CORPUSCULAR HGB CONC 32 G/DL (32-36); MEAN CORPUSCULAR VOLUME 87 FL (80-99); MEAN PLATELET VOLUME 11.1 FL (7.4-10.4); MONOCYTES # (AUTO) 0.4 X 10^3 (0.0-1.0); MONOCYTES % (AUTO) 5 % (0-12); NEUTROPHILS # (AUTO) 6.6 X 10^3 (1.8-7.8); NEUTROPHILS % (AUTO) 93 % (42-75); PLATELET COUNT 108 10^3/uL (130-400); RED CELL DISTRIBUTION WIDTH 18.5 % (10.0-14.5); WHITE BLOOD COUNT 7.2 10^3/uL (4.3-11.0)
[2018-01-22 08:00] VITALS: BP 129/74
[2018-01-22 08:05] LABS: CALCIUM 8.2 MG/DL (8.5-10.1); CREATININE SERUM 1.71 MG/DL (0.60-1.30); MAGNESIUM 2.1 MG/DL (1.8-2.4); PHOSPHORUS 3.6 MG/DL (2.3-4.7); POTASSIUM 4.3 MMOL/L (3.6-5.0)
[2018-01-22] MEDS: FUROSEMIDE 40 MG/4 ML INJ (LASIX) IVP SCH (08:34)
[2018-01-22] MEDS: cefTRIAXone FOR IV USE 1,000 MG in NS (IVPB) 50 ML IV SCH (08:34)
--- NOTE | 2018-01-22 10:24 | Diagnostic Imaging Report ---
PROCEDURE: US abdomen complete. TECHNIQUE: Multiple Real-time grayscale images were obtained over the abdomen in various projections. INDICATION: Renal failure, elevated bilirubin. FINDINGS: There is a moderate amount of abdominal/pelvic free fluid. The body habitus limits sonographic penetrability and sonographic sensitivity. The liver appears unremarkable. The gallbladder is difficult to adequately clear but shows no obvious stone or sludge. The pancreas, spleen, aorta, and IVC are largely obscured by gas. The unobstructed kidneys appear normal. IMPRESSION: Limited by body habitus. Abdominal/pelvic free fluid is confirmed. No bile duct dilatation, stone disease, or hydronephrosis is identified. Dictated by: Dictated on workstation # [id number]
--- NOTE | 2018-01-22 11:34 | Progress Note-Cardiology ---
Cardiology SOAP Progress Note Subjective: Lying in bed. States he feels weak and tired today. Continues to feel SOB, but feels it is unchanged from yesterday. C/O chest wall discomfort from coughing. No c/o palpitations, syncope or near syncope. C/O lightheadedness with changes in position. Objective: I&O/Vital Signs 01/22/18 01/22/18 01/22/18 01/22/18 04:00 06:36 07:00 08:00 Temp 97.2 97.8 Pulse 105 90 92 Resp 22 18 B/P (MAP) 161/92 (115) 129/74 (92) Pulse Ox 93 92 93 O2 Delivery High Flow N/C High Flow N/C High Flow N/C O2 Flow Rate 8.00 8.00 8.00 01/22/18 01/22/18 01/22/18 01/22/18 09:00 10:39 12:00 13:00 Temp 98.2 Pulse 90 89 Resp 20 B/P (MAP) 135/68 (90) Pulse Ox 88 93 O2 Delivery High Flow N/C High Flow N/C High Flow N/C O2 Flow Rate 8.00 8.00 8.00 01/22/18 14:05 Pulse Ox 91 O2 Delivery High Flow N/C O2 Flow Rate 10.00 01/22/18 00:00 Intake Total 1962 ml Output Total 1325 ml Balance 637 ml Weight (Pounds): 256 Weight (Ounces): 9.0 Weight (Calculated Kilograms): 116.910679 Constitutional: AAO x 3, well-developed, well-nourished Respiratory: No accessory muscle use; rhonchi (scattered, exp), other ( diminished air entry at both bases) Cardiovascular: regular rate-rhythm, S1 and S2, systolic murmur (soft AIMEE at card base) Gastrointestional: No tender; distended; No guarding, No rebound; audible bowel sounds Extremities: No clubbing, No cyanosis; significant edema (bilateral leg edema) Neurologic/Psychiatric: grossly intact, power is 5/5 both on sides Skin: other (scratch melendrez and abrasions over the skin of both legs) Results/Procedures: Labs Laboratory Tests 01/22/18 07:11: White Blood Count 7.2, Red Blood Count 4.40, Hemoglobin 12.3L, Hematocrit 38L, Mean Corpuscular Volume 87, Mean Corpuscular Hemoglobin 28, Mean Corpuscular Hemoglobin Concent 32, Red Cell Distribution Width 18.5H, Platelet Count 108L, Mean Platelet Volume 11.1H, Neutrophils (%) (Auto) 93H, Lymphocytes (%) (Auto) 2L, Monocytes (%) (Auto) 5, Eosinophils (%) (Auto) 0, Basophils (%) (Auto) 0, Neutrophils # (Auto) 6.6, Lymphocytes # (Auto) 0.1L, Monocytes # (Auto) 0.4, Eosinophils # (Auto) 0.0, Basophils # (Auto) 0.0, Sodium Level 138, Potassium Level 4.3, Chloride Level 103, Carbon Dioxide Level 26, Anion Gap 9, Blood Urea Nitrogen 64H, Creatinine 1.71H, Estimat Glomerular Filtration Rate 40, BUN/ Creatinine Ratio 37, Glucose Level 139H, Calcium Level 8.2L, Phosphorus Level 3.6, Magnesium Level 2.1 Microbiology 01/18/18 Blood Culture - Preliminary, Resulted No growth 01/19/18 Urine Culture - Final, Complete Enterococcus faecalis Staphylococcus epidermidis 01/20/18 Lice/Scabies Examination - Final, Complete Laboratory Tests 01/21/18 03:07 01/22/18 07:11 Procedures NAME: PANCHO WINSTON [facility] REC#: [id number] PT STATUS: ADM IN : 1950 PHYSICIAN: CARMEN SÁNCHEZ DO ADMIT DATE: 01/18/18 Signed Date of Exam: 01/22/18 CHEST 1 VIEW, AP/PA ONLY INDICATION: Shortness of breath. Hypoxia. There is bilateral airspace disease. There is a left pleural effusion. There is cardiomegaly. Some underlying central pulmonary venous congestion cannot be excluded. There is no pneumothorax. The mediastinum is unremarkable. There has been a previous median sternotomy and coronary bypass graft. IMPRESSION: Diffuse bilateral airspace disease with a left pleural effusion. Cardiomegaly. Some underlying central pulmonary venous congestion cannot be excluded. Dictated by: Dictated on workstation # [id number] Dict: 01/22/18 0731 Trans: 01/22/18 0749 Interpreted by: FARIDA LUZ MD Electronically signed by: FARIDA LUZ MD 01/22/18 0749 NAME: PANCHO WINSTON [facility] REC#: [id number] PT STATUS: ADM IN : 1950 PHYSICIAN: CARMEN SÁNCHEZ DO ADMIT DATE: 01/18/18/ Draft Date of Exam:01/22/18 US ABDOMEN COMPLETE [id number] PROCEDURE: US abdomen complete. TECHNIQUE: Multiple Real-time grayscale images were obtained over the abdomen in various projections. INDICATION: Renal failure, elevated bilirubin. FINDINGS: There is a moderate amount of abdominal/pelvic free fluid. The body habitus limits sonographic penetrability and sonographic sensitivity. The liver appears unremarkable. The gallbladder is difficult to adequately clear but shows no obvious stone or sludge. The pancreas, spleen, aorta, and IVC are largely obscured by gas. The unobstructed kidneys appear normal. IMPRESSION: Limited by body habitus. Abdominal/pelvic free fluid is confirmed. No bile duct dilatation, stone disease, or hydronephrosis is identified. Dictated on workstation # [id number] Dict: 01/22/18 1010 Trans: 01/22/18 [id number] Interpreted by: DAYANA HESTER Electronically signed by: A/P: Assessment: Acute renal failure of undetermined etiology, managed by the Hospitalist Kim, improving Increasing edema, likely due to iv fluids and 3rd spacing Elevated BNP, probably due to ac renal failure Chronic Hep-C and hepatic cirrhosis, managed by [facility] at [facility] CAD, s/p CABG in October 2010. MPI of 09/16/15 showed basal inf infarction with only minimal antoinette-infarct ischemia and LVEF 69%. Echo of 07/17/[address] Aparicio at [facility], [place], is reported to have shown LVEF 55%, RV overload, PASP approx 57 mmHg, mild to mod MR, severe TR H/o heavy alcohol use in the past, currently down to two beers a day (according to him) RBBB, chronic Chronic tobacco use H/o intolerance statin COPD Intolerance to enalapril (stopped at [facility] in November 2014 after he had presented with tongue swelling) Obesity with BMI approx 39 Plan: * Complex management due to multiple comorbidities * Monitor labs closely * Continue enoxaparin at DVT prophylaxis dose (adjust for renal failure) * Possible thoracentesis today * U/S of the abdomen today for consideration of paracentesis * Cr improved today * IV Lasix per pulmonary services Physician Assessment Physician Assessment Notes gen weakness and tiredness. No cp or palp or syncope Lungs: good a/e, but diminished at the bases Cor: reg Ext: 3+ bilat leg edema A&R * As documented in our note above that I updated (italics) and as noted below * Reduce if fluids * Continue to monitor labs closely MARI MARRERO [facility] Jan 22, 2018 11:34 BHAART SOSA MD FACP FAC CCDS Jan 22, 2018 15:52
--- NOTE | 2018-01-22 11:41 | CONSULTATION REPORT ---
DATE OF SERVICE: 01/22/2018 ATTENDING PHYSICIAN: Dat Patel DO and Tanya Spears DO. SUMMARY: After reviewing the patient's records and interviewing him, this is a 67-year-old white man admitted with renal failure, COPD, debility metabolic acidosis, cirrhosis and exacerbation of congestive heart failure. The catheter was inserted with recovery of 200 mL of urine. He came in with his creatinine being high, today is down to 1.71 with hydration and draining. Questioning the patient about voiding issues, he said everything was okay until he started on the Lasix and his urination is well controlled on Flomax 0.[address] Patel. He had a renal ultrasound will have one, we will check on that. IMPRESSION: 1. Benign prostatic hypertrophy with prostatism. 2. Renal failure with dehydration. 3. Congestive heart failure, chronic obstructive pulmonary disease and liver cirrhosis. PLAN: 1. Once the Goldberg is not needed, medically speaking, discontinue it and followup the patient voiding with post void residual ultrasounds. 2. Await the results of the renal ultrasound. 3. Continue Flomax. 4. Depending on the above, the patient may need urological workup including cystoscopy. The plan was fully explained to the patient. Job ID: [id number] DocumentID: [id number] Dictated Date: 01/22/2018 10:17:49 Station Supervisor Date: 01/22/2018 11:41:03 Dictated By: RICCARDO GARCIA MD
--- NOTE | 2018-01-22 11:58 | Physical Therapy Daily Note ---
PT Daily Note-Current Subjective Patient agrees to PT. RT present for treatment. Pain Numeric Pain Scale: 5-Moderate Pain Location: Soft Tissue Location Body Site: Genital Pain Description: Pressure Mental Status Patient Orientation: Normal For Age Attachments: Oxygen (10L HF), IV Transfers Functional [place] Measure 0=Not Assessed/NA 4=Minimal Assistance 1=Total Assistance 5=Supervision or Setup 2=Maximal Assistance 6=Modified [place] 3=Moderate Assistance 7=Complete IndependenceIRFPAI Quality Coding Scale 6 Independent with activity with or without an assistive device 5 Patient requires set up or clean up by helper. Patient completes activity by themselves 4 Supervision or touching assist (CGA). [place] provide cues , steadying assist 3 The helper provides less than half the effort to complete the activity 2 The helper provides more than half the effort to complete the activity 1 Dependent. The helper does all the effort to complete an activity 7 Patient refused to complete or attempt activity 9 The patient did not perform the activity before the current illness or injury 88 Not attempted due to Medical conditions or safety concerns Transfers (B, C, W/C) (FIM): 4 Scootin Supine to/from Sit: 4 Sit to/from Stand: 5 sit to stand transfer to FWW x 3 sets with side stepping and marching exercises. Patient's SAO2 decreases with minimal activity. Weight Bearing Right Lower Extremity: Right Full Weight Bearing Left Lower Extremity: Left Full Weight Bearing Gait Training Gait (FIM): 1 Distance (FIM): 1=up to 49 ft Distance: 5' x 4 Gait Level of Assist: 5 Gait Assistive Device: FWW functional Exercises Seated Therapy Exercises: Ankle pumps, Long arc quads Seated Reps: 15 Standing: Marching Standing Reps: 15 Assessment Patient sitting EOB after treatment with alarm activated. PT to increase activity as tolerated by patient. PT Short Term Goals Short Term Goals Time Frame: Feb 02, 2018 Transfers (B,C,W/C) (FIM): 5 Gait (FIM): 5 Distance (FIM): 3=150 ft Gait Distance Comment: 300ft Gait Level of Assist: 5 Gait Assistive Device: FWW PT Plan Treatment/Plan Treatment Plan: Continue Plan of Care Treatment Plan: Bed Mobility, Concurrent Therapy, Education, Functional Activity Rachel, Functional Strength, Gait, Therapeutic Exercise, Transfers Treatment Duration: Feb 02, 2018 Frequency: 11 times per week Estimated Hrs Per Day: .5 hour per day Patient and/or Family Agrees t: Yes Time/GCodes Time In: 1030 Time Out: 1055 Total Billed Treatment Time: 25 Total Billed Treatment 1 visit FA x 2 25 min CESAR KITCHEN PT Jan 22, 2018 11:58
[2018-01-22 12:00] VITALS: BP 135/68
--- NOTE | 2018-01-22 14:44 | Occupational Ther Daily Note ---
OT Current Status-Daily Note Subjective Pt seen in room, up in bed, agreeable to OT. No pain mentioned Appearance Alert but drowsy, a little confused Mental Status/Objective Functional [place] Measure 0=Not Assessed/NA 4=Minimal Assistance 1=Total Assistance 5=Supervision or Setup 2=Maximal Assistance 6=Modified [place] 3=Moderate Assistance 7=Complete [place] Other Treatment Pt competed 10 reps bilat UE ex with AROM for shoulders and elbows. Pt educ for edema management in UEs, including elevating UEs on pillows and active movement , with his agreement (but OT not sure if he understands and will follow through. Bila UEs elevated on pillows. Pt declined to do ex with theraband but asked at end of tx, "Doesn't my other hand get a balloon, too?" in reference to material in theraband. Pt left up in bed, 4 rails up, O2 at 8L nc, all needs met. Education OT Patient Education: Correct positioning, Exercise program Teaching Recipient: Patient Teaching Methods: Demonstration, Discussion Response to Teaching: Verbalize Understanding, Return Demonstration, Reinforcement Needed OT Short Term Goals Short Term Goals Time Frame: Feb 02, 2018 Eating(FIM): 4 Grooming(FIM): 4 Bathing(FIM): 4 Upper Body Dressing(FIM): 4 Lower Body Dressing(FIM): 4 Toileting(FIM): 5 Transfers (B,C,W/C) (FIM): 5 Toilet/Commode Transfer(FIM): 5 Additional Short Term Goals: 1-Demonstrate ADL Tasks, 2-Verbalize Understanding , 3-ImproveStrength/Rachel 1=Demonstrate adherence to instructed precautions during ADL tasks. 2=Patient will verbalize/demonstrate understanding of assistive devices/ modifications for ADL. 3=Patient will improve strength/tolerance for activity to enable patient to perform ADL's. OT Electric Arc Welder Goals Usp Goals Time Frame: Feb 16, 2018 Eating (FIM): 6 Grooming(FIM): 6 Bathing(FIM): 5 Upper Body Dressing(FIM): 5 Lower Body Dressing(FIM): 5 Toileting(FIM): 5 Transfers (B,C,W/C) (FIM): 6 Toilet/Commode Transfer(FIM): 6 Shower Transfer(FIM): 5 Additional Goals: 1-Demonstrate ADL Tasks, 2-Verbalize Understanding, 3- ImproveStrength/Rachel 1=Demonstrate adherence to instructed precautions during ADL tasks. 2=Patient will verbalize/demonstrate understanding of assistive devices/ modifications for ADL. 3=Patient will improve strength/tolerance for activity to enable patient to perform ADL's. OT Education/Plan Discharge Recommendations Plan/Recommendations: Continue POC Treatment Plan/Plan of Care Patient would benefit from OT for education, treatment and training to promote independence in ADL's, mobility, safety and/or upper extremity function for ADL' s. Plan of Care: ADL Retraining, Functional Mobility, UE Funct Exercise/Act Treatment Duration: Feb 16, 2018 Frequency: 5 times per week Estimated Hrs Per Day: .25 hour per day Agreement: Yes Rehab Potential: Guarded Time/GCodes Start Time: 15:15 Stop Time: 15:30 Total Time Billed (hr/min): 15 Billed Treatment Time visit, 15 minutes exercise ALEX LEE OT Jan 22, 2018 14:44
[2018-01-22 16:00] VITALS: BP 125/63
[2018-01-22] MEDS: TAMSULOSIN 0.4 MG (FLOMAX) CAP PO SCH (18:25)
[2018-01-22 20:09] VITALS: BP 149/74
[2018-01-22] MEDS: FAMOTIDINE 20 MG (PEPCID) TABLET PO SCH (20:55)
[2018-01-22] MEDS: NS IV 1000 ML 1,000 ML IV SCH (20:57)
[2018-01-23] VITALS (18 sets, daily range): BP systolic 98–154; BP diastolic 66–96
[2018-01-23] MEDS: fentaNYL INJECTION 100 MCG/2 ML AMP IVP PRN ×3 (01:20→20:13)
[2018-01-23] MEDS: ALPRAZolam 0.25 MG (XANAX) TAB PO PRN ×2 (01:20→18:25)
[2018-01-23] MEDS: RT-ALBUTEROL/IPRATROPIUM 3 ML (DUONEB) VIAL INH SCH ×6 (01:22→22:46)
[2018-01-23 04:55] LABS: BASOPHILS % (AUTO) 0 % (0-10); EOSINOPHILS % (AUTO) 0 % (0-10); HEMATOCRIT 37 % (40-54); HEMOGLOBIN 12.2 G/DL (13.3-17.7); LYMPHOCYTES # (AUTO) 0.2 X 10^3 (1.0-4.0); LYMPHOCYTES % (AUTO) 3 % (12-44); MEAN CORPUSCULAR HEMOGLOBIN 29 PG (25-34); MEAN CORPUSCULAR HGB CONC 33 G/DL (32-36); MEAN CORPUSCULAR VOLUME 86 FL (80-99); MEAN PLATELET VOLUME 11.1 FL (7.4-10.4); MONOCYTES # (AUTO) 0.7 X 10^3 (0.0-1.0); MONOCYTES % (AUTO) 9 % (0-12); NEUTROPHILS # (AUTO) 6.5 X 10^3 (1.8-7.8); NEUTROPHILS % (AUTO) 88 % (42-75); PLATELET COUNT 93 10^3/uL (130-400); RED BLOOD COUNT 4.24 10^6/uL (4.35-5.85); RED CELL DISTRIBUTION WIDTH 18.4 % (10.0-14.5); WHITE BLOOD COUNT 7.4 10^3/uL (4.3-11.0)
[2018-01-23 05:13] LABS: CALCIUM 8.6 MG/DL (8.5-10.1); CREATININE SERUM 1.38 MG/DL (0.60-1.30); LYMPHOCYTES % (MANUAL) 3 %; MAGNESIUM 2.1 MG/DL (1.8-2.4); MONOCYTES % (MANUAL) 6 %; NEUTROPHILS % (MANUAL) 91 %; POTASSIUM 4.4 MMOL/L (3.6-5.0)
[2018-01-23] MEDS: predniSONE 20 MG TAB PO SCH (06:29)
--- NOTE | 2018-01-23 07:13 | Diagnostic Imaging Report ---
INDICATION: Shortness of breath. Hypoxia. Comparison with 01/22/2018. FINDINGS: Cardiomegaly with median sternotomy changes again noted. There continues to be opacification of the left lower lung with obscuration of the left hemidiaphragm. There is moderate left pleural effusion. Small right basilar effusion. Diffuse interstitial infiltrates on the right with mild alveolar infiltrate in the right lung base. IMPRESSION: 1. Cardiomegaly with probable pulmonary edema with bilateral effusions larger on the left. 2. Alveolar infiltrates noted in the lung bases. Overall appearance has changed very little since previous exam. Dictated by: Dictated on workstation # [id number]
[2018-01-23] MEDS ORDERED: ACETAMINOPHEN 325 MG TABLET ONE (07:41)
[2018-01-23] MEDS ORDERED: meTOproloL SUCCINATE 50 MG (TOPROL XL) TAB PO NR ×2 (07:45→16:45)
[2018-01-23] MEDS ORDERED: ANTACID SUSP 30 ML UDC (MYLANTA) PO PRN (07:45)
[2018-01-23] MEDS ORDERED: ANTACID SUSP 30 ML UDC (MYLANTA) PO NR (07:45)
[2018-01-23] MEDS: ACETAMINOPHEN 325 MG TABLET PO PRN (07:53)
--- NOTE | 2018-01-23 08:27 | Progress Note (SOAP) ---
Subjective Time Seen by Provider: 08:20 Subjective/Events-last exam Patient's heart rate went up to 180. Patient transferred to intensive care unit. BNP decreasing Objective Exam Vital Signs Date Time Temp Pulse Resp B/P (MAP) Pulse Ox O2 Delivery O2 Flow Rate FiO2 01/23/18 07:00 103 01/23/18 06:35 94 High Flow N/C 8.00 01/23/18 05:20 95 High Flow N/C 8.00 01/23/18 04:00 97.3 95 20 130/73 (92) 95 High Flow N/C 8.00 01/23/18 01:22 High Flow N/C 8.00 01/23/18 01:00 94 01/23/18 00:00 97.4 92 20 136/91 (106) 93 High Flow N/C 8.00 01/22/18 21:24 90 High Flow N/C 8.00 01/22/18 21:00 High Flow N/C 8.00 01/22/18 20:09 97.8 105 16 149/74 (99) 96 High Flow N/C 8.00 01/22/18 19:00 96 01/22/18 18:22 90 High Flow N/C 8.00 01/22/18 16:00 97.5 90 20 125/63 (83) 92 High Flow N/C 8.00 01/22/18 14:05 91 High Flow N/C 10.00 01/22/18 13:00 89 01/22/18 12:00 98.2 90 20 135/68 (90) 93 High Flow N/C 8.00 01/22/18 10:39 88 High Flow N/C 8.00 01/22/18 09:00 High Flow N/C 8.00 I & O 01/23/18 07:00 Intake Total 3770 ml Output Total 3100 ml Balance 670 ml Capillary Refill : Less Than 3 Seconds General Appearance: No Apparent Distress, Obese HEENT: Normal ENT Inspection Neck: Full Range of Motion, Normal Inspection Respiratory: No Accessory Muscle Use, No Respiratory Distress, Decreased Breath Sounds Cardiovascular: Tachycardia Gastrointestinal: other (Diabetes) Extremity: Pedal Edema Results Lab Laboratory Tests 01/23/18 04:48: White Blood Count 7.4, Red Blood Count 4.24L, Hemoglobin 12.2L, Hematocrit 37L, Mean Corpuscular Volume 86, Mean Corpuscular Hemoglobin 29, Mean Corpuscular Hemoglobin Concent 33, Red Cell Distribution Width 18.4H, Platelet Count 93L, Mean Platelet Volume 11.1H, Neutrophils (%) (Auto) 88H, Lymphocytes (%) (Auto) 3L, Monocytes (%) (Auto) 9, Eosinophils (%) (Auto) 0, Basophils (%) (Auto) 0, Neutrophils # (Auto) 6.5, Lymphocytes # (Auto) 0.2L, Monocytes # (Auto) 0.7, Eosinophils # (Auto) 0.0, Basophils # (Auto) 0.0, Neutrophils % (Manual) 91, Lymphocytes % (Manual) 3, Monocytes % (Manual) 6, Sodium Level 140, Potassium Level 4.4, Chloride Level 103, Carbon Dioxide Level 26, Anion Gap 11, Blood Urea Nitrogen 59H, Creatinine 1.38H, Estimat Glomerular Filtration Rate 52, BUN/ Creatinine Ratio 43, Glucose Level 122H, Calcium Level 8.6, Phosphorus Level 3.1 , Magnesium Level 2.1 Microbiology 01/18/18 Blood Culture - Preliminary, Resulted No growth 01/19/18 Urine Culture - Final, Complete Enterococcus faecalis Staphylococcus epidermidis 01/20/18 Lice/Scabies Examination - Final, Complete Assessment/Plan Assessment/Plan Assess & Plan/Chief Complaint Renal insufficiency acute and chronic area Cirrhosis. Congestive heart failure exacerbation. COPD. Alcoholism. Tobaccoism. CHF. . 01/23/18. Renal insufficiency better. Cirrhosis. New-onset tachycardia. Congestive heart failure improving. Ascites. Pleural effusion. Patient transferred to ICU Clinical Quality Measures DVT/VTE Risk/Contraindication: Risk Factor Score Per Nursin RFS Level Per Nursing on Admit: 4+=Very High LUZ ARZOLA DO Jan 23, 2018 08:27
[2018-01-23] MEDS ORDERED: VANCOMYCIN INJECTION 0.1 MG in NS (IVPB) 250 ML IV SCH (08:30)
[2018-01-23] MEDS ORDERED: VANCOMYCIN INJECTION 2,500 MG in NS IV 500 ML 500 ML IV NR (08:49)
[2018-01-23] MEDS: ENOXAPARIN 40 MG/0.4 ML (LOVENOX) SYR SC SCH (08:52)
--- NOTE | 2018-01-23 08:55 | Progress Note-Urology ---
Progress Note-Urology Progress Notes/Assess & Plan Progress/Assessment & Plan ABDOMINAL US OK ADAM Final Diagnosis RETENTION RICCARDO GARCIA MD Jan 23, 2018 8:55 am
--- NOTE | 2018-01-23 09:01 | Pulmonary Progress Note ---
Subjective Time Seen by Provider: 09:00 Subjective/Events-last exam Pt transferred to ICU secondary to tachycardia. Sepsis Event Evaluation Height, Weight, BMI Height: 5'9.00" Weight: 258lbs. 9.0oz. [id number]; 36.2 BMI Method:Estimated Exam Exam Vital Signs Date Time Temp Pulse Resp B/P (MAP) Pulse Ox O2 Delivery O2 Flow Rate FiO2 01/23/18 07:00 103 01/23/18 06:35 94 High Flow N/C 8.00 01/23/18 05:20 95 High Flow N/C 8.00 01/23/18 04:00 97.3 95 20 130/73 (92) 95 High Flow N/C 8.00 01/23/18 01:22 High Flow N/C 8.00 01/23/18 01:00 94 01/23/18 00:00 97.4 92 20 136/91 (106) 93 High Flow N/C 8.00 01/22/18 21:24 90 High Flow N/C 8.00 01/22/18 21:00 High Flow N/C 8.00 01/22/18 20:09 97.8 105 16 149/74 (99) 96 High Flow N/C 8.00 01/22/18 19:00 96 01/22/18 18:22 90 High Flow N/C 8.00 01/22/18 16:00 97.5 90 20 125/63 (83) 92 High Flow N/C 8.00 01/22/18 14:05 91 High Flow N/C 10.00 01/22/18 13:00 89 01/22/18 12:00 98.2 90 20 135/68 (90) 93 High Flow N/C 8.00 01/22/18 10:39 88 High Flow N/C 8.00 01/22/18 09:00 High Flow N/C 8.00 I & O 01/23/18 06:59 Intake Total 3770 ml Output Total 3100 ml Balance 670 ml Height & Weight Height: 5'9.00" Weight: 258lbs. 9.0oz. 117.621250xf; 36.2 BMI Method:Estimated General Appearance: No Apparent Distress, Obese HEENT: Normal ENT Inspection Neck: Full Range of Motion, Normal Inspection Respiratory: No Accessory Muscle Use, No Respiratory Distress, Decreased Breath Sounds Cardiovascular: Tachycardia Capillary Refill: Less Than 3 Seconds Gastrointestinal: other (Diabetes) Extremity: Pedal Edema Neurologic/Psychiatric: Other (sleeping with Vapotherm on) Skin: Normal Color, Warm/Dry Lymphatic: No Adenopathy Results Lab Laboratory Tests 01/22/18 07:11 01/23/18 04:48 Assessment/Plan Assessment/Plan Post obstructive uropathy probably secondary to BPH-- -Flomax Hypoxia -with bilateral Right >Left pleural effusions -Lasix -CXR is pending Acute on chronic renal failure secondary to post obstruction -CT scan reviewed and shows ascites, and bilateral pleural effusions along with subcutaneous edema - radiology consulted for thoracentesis of left pleural fluid this is most likely a complicated pleural effusion Ascites with hx of hep C Metabolic acidosis -Monitor Morbid obesity probable OHS Hx of hep C Hyponatremia -Monitor Labs and radiology reviewed. CARMEN SÁNCHEZ DO Jan 23, 2018 09:01
[2018-01-23] MEDS: cefTRIAXone FOR IV USE 1,000 MG in NS (IVPB) 50 ML IV SCH (09:24)
--- NOTE | 2018-01-23 09:48 | Occ Therapy Progress Note ---
Therapy Progress Note Pt transferred from medical floor to ICU secondary to change in medical status. Will require new orders for continued Occupation Therapy services. YUVAL GORE OT Jan 23, 2018 09:48
[2018-01-23] MEDS: ASPIRIN 81 MG CHEW (CHILDREN'S ASA) PO SCH (10:52)
[2018-01-23] MEDS: FUROSEMIDE 40 MG/4 ML INJ (LASIX) IVP SCH (10:52)
[2018-01-23 11:02] LABS: BILIRUBIN,URINE NEGATIVE (NEGATIVE); CLARITY,URINE SLIGHTLY CLOUDY; COLOR,URINE YELLOW; GLUCOSE, URINE (UA) NEGATIVE (NEGATIVE); KETONES,URINE NEGATIVE (NEGATIVE); LEUKOCYTE ESTERASE ,URINE 1+ (NEGATIVE); NITRITE,URINE NEGATIVE (NEGATIVE); PH,URINE 5 (5-9); PROTEIN,URINE 1+ (NEGATIVE); UROBILINOGEN,URINE NORMAL (NORMAL)
[2018-01-23 11:20] LABS: BACTERIA,URINE TRACE /HPF; SQUAMOUS EPITHELIAL CELL,UR RARE /HPF; WBC,URINE 0-2 /HPF
--- NOTE | 2018-01-23 11:26 | Physical Therapy Progress Note ---
Therapy Progress Note Pt transferred from Medical floor to ICU secondary to change in medical status. Pt is not seen at this time and new PT order will need to be ordered 1 visit, no tx rendered JACEY HAINES PTA Jan 23, 2018 11:26
--- NOTE | 2018-01-23 12:34 | Progress Note-Cardiology ---
Cardiology SOAP Progress Note Subjective: Gen malaise Some nonspecific chest discomfort this am: mild, L and R parasternal, lasting a couple of hours, w/o aggravating or relieving factors, w/o radiation Denies palp Has mod shortness of breath Objective: I&O/Vital Signs 01/23/18 01/23/18 01/23/18 01/23/18 01:00 01:22 04:00 05:20 Temp 97.3 Pulse 94 95 Resp 20 B/P (MAP) 130/73 (92) Pulse Ox 95 95 O2 Delivery High Flow N/C High Flow N/C High Flow N/C O2 Flow Rate 8.00 8.00 8.00 01/23/18 01/23/18 01/23/18 01/23/18 06:35 07:00 08:00 09:00 Pulse 103 104 101 Resp 24 16 B/P (MAP) 126/79 (95) 154/85 (108) Pulse Ox 94 94 92 O2 Delivery High Flow N/C High Flow N/C High Flow N/C O2 Flow Rate 8.00 8.00 8.00 01/23/18 01/23/18 01/23/18 01/23/18 09:00 10:00 10:23 11:00 Pulse 104 99 Resp 40 14 B/P (MAP) 146/71 (96) 138/76 (96) Pulse Ox 95 96 O2 Delivery High Flow N/C High Flow N/C High Flow N/C High Flow N/C O2 Flow Rate 8.00 8.00 8.00 8.00 01/23/18 01/23/18 11:50 12:00 Pulse 101 B/P (MAP) 131/75 (93) Pulse Ox 94 O2 Delivery High Flow N/C High Flow N/C O2 Flow Rate 8.00 8.00 01/23/18 00:00 Intake Total 2920 ml Output Total 2600 ml Balance 320 ml Weight (Pounds): 258 Weight (Ounces): 9.0 Weight (Calculated Kilograms): 117.908063 Constitutional: AAO x 3, well-developed, well-nourished Respiratory: No accessory muscle use; rhonchi (scattered, exp), other ( diminished air entry at both bases) Cardiovascular: regular rate-rhythm, S1 and S2, systolic murmur (soft AIMEE at card base) Gastrointestional: No tender; distended; No guarding, No rebound; audible bowel sounds Extremities: No clubbing, No cyanosis; significant edema (bilateral leg edema) Neurologic/Psychiatric: grossly intact, power is 5/5 both on sides Skin: other (scratch melendrez and abrasions over the skin of both legs) Results/Procedures: Labs Laboratory Tests 01/23/18 04:48: White Blood Count 7.4, Red Blood Count 4.24L, Hemoglobin 12.2L, Hematocrit 37L, Mean Corpuscular Volume 86, Mean Corpuscular Hemoglobin 29, Mean Corpuscular Hemoglobin Concent 33, Red Cell Distribution Width 18.4H, Platelet Count 93L, Mean Platelet Volume 11.1H, Neutrophils (%) (Auto) 88H, Lymphocytes (%) (Auto) 3L, Monocytes (%) (Auto) 9, Eosinophils (%) (Auto) 0, Basophils (%) (Auto) 0, Neutrophils # (Auto) 6.5, Lymphocytes # (Auto) 0.2L, Monocytes # (Auto) 0.7, Eosinophils # (Auto) 0.0, Basophils # (Auto) 0.0, Neutrophils % (Manual) 91, Lymphocytes % (Manual) 3, Monocytes % (Manual) 6, Sodium Level 140, Potassium Level 4.4, Chloride Level 103, Carbon Dioxide Level 26, Anion Gap 11, Blood Urea Nitrogen 59H, Creatinine 1.38H, Estimat Glomerular Filtration Rate 52, BUN/ Creatinine Ratio 43, Glucose Level 122H, Calcium Level 8.6, Phosphorus Level 3.1 , Magnesium Level 2.1 01/23/18 10:50: Urine Color YELLOW, Urine Clarity SLIGHTLY CLOUDY, Urine pH 5, Urine Specific [place] 1.010L, Urine Protein 1+H, Urine Glucose (UA) NEGATIVE, Urine Ketones NEGATIVE, Urine Nitrite NEGATIVE, Urine Bilirubin NEGATIVE, Urine Urobilinogen NORMAL, Urine Leukocyte Esterase 1+H, Urine RBC (Auto) 4+H, Urine RBC 10-25H, Urine WBC 0-2, Urine Squamous Epithelial Cells RARE, Urine Crystals NONE, Urine Bacteria TRACE, Urine Casts NONE, Urine Mucus NEGATIVE, Urine Culture Indicated NO Microbiology 01/18/18 Blood Culture - Preliminary, Resulted No growth 01/19/18 Urine Culture - Final, Complete Enterococcus faecalis Staphylococcus epidermidis 01/20/18 Lice/Scabies Examination - Final, Complete A/P: Assessment: Acute renal failure probably primarily due to intravasc vol depletion, improving One brief episode of probable atrial flutter on the morning of 01/23/18 at approx 160 bpm and lasting approx 2 min Increasing edema/anasarca, likely due to iv fluids and 3rd spacing and hepatic cirrhosis and hypoalbuminemia Elevated BNP, probably due to ac renal failure Chronic Hep-C and hepatic cirrhosis, managed by [facility] at [facility], s/p CABG in October 2010. MPI of 09/16/15 showed basal inf infarction with only minimal antoinette-infarct ischemia and LVEF 69%. Echo of 07/17/[address] Aparicio at [facility], [place], is reported to have shown LVEF 55%, RV overload, PASP approx 57 mmHg, mild to mod MR, severe TR H/o heavy alcohol use in the past, currently down to two beers a day (according to him) RBBB, chronic Chronic tobacco use H/o intolerance statin COPD Intolerance to enalapril (stopped at [facility] in November 2014 after he had presented with tongue swelling) Obesity with BMI approx 39 Plan: * Complex management due to multiple comorbidities * I reviewed his tele strips from this am * Ok to proceed with thoracentesis/paracentesis * Please resume enoxaparin ALEX after procedures * Monitor labs closely * I discussed his case with Dr Disla of the pulm svce this am BHARAT SOSA MD FACP FAC CCDS Jan 23, 2018 12:34
[2018-01-23 13:41] LABS: INR 1.3 (0.8-1.4); PROTHROMBIN TIME PATIENT 16.1 SEC (12.2-14.7)
[2018-01-23] MEDS ORDERED: LIDOCAINE 1% INJ 20 ML 20 ML VIAL INJ ONE (14:30)
--- NOTE | 2018-01-23 15:41 | Diagnostic Imaging Report ---
INDICATION: Pleural effusions. FINDINGS: Sonographic interrogation of the right and left chest was performed. There is a moderate-sized right pleural effusion. Left pleural fluid is also present, which appears to be smaller. There may be some mild internal complexity present. The small volume of fluid in the left chest and patient's physical condition precluded safe thoracentesis. IMPRESSION: Bilateral pleural effusions, right greater, as described. Thoracentesis could not be performed due to patient desaturation during positioning for thoracentesis. Dictated by: Dictated on workstation # [id number]
--- NOTE | 2018-01-23 15:43 | Pre-Procedure Progress Note ---
Pre-Procedure Progress Note H&P Reviewed The H&P was reviewed, patient examined and no changes noted. Date H&P Reviewed: Jan 23, 2018 Time H&P Reviewed: 12:00 Pre-Procedure Diagnosis: Ascites CHARMAINE ASCENCIO MD Jan 23, 2018 15:43
--- NOTE | 2018-01-23 15:48 | Diagnostic Imaging Report ---
INDICATION: Ascites. PROCEDURE: Procedure was performed at the bedside. Left lower quadrant was prepped and draped in the usual sterile fashion. A small amount of 1% lidocaine was utilized for local anesthesia. 6 Albanian catheter was advanced to the left lower quadrant peritoneal space. A total of 2.8 L of fluid was removed. Catheter was withdrawn and hemostasis was obtained. Patient tolerated the procedure well. IMPRESSION: Ultrasound-guided paracentesis obtaining 2.8 L of fluid. Dictated by: Dictated on workstation # [id number]
[2018-01-23 16:08] LABS: BODY FLUID APPEARENCE CLEAR; BODY FLUID COLOR PALE YELLOW; BODY FLUID PH 7.3; BODY FLUID SOURCE PERITONEAL
[2018-01-23] MEDS ORDERED: NITROGLYCERIN 0.4 MG SL TABS BTL 25'S SL PRN (16:15)
[2018-01-23 16:18] LABS: AMYLASE,BODY FLUID 20 U/L; GLUCOSE,BODY FLUID 124 MG/DL; LDH,BODY FLUID 105 U/L; TOTAL PROTEIN,BODY FLUID 3.4 G/DL
[2018-01-23 16:44] LABS: BF OTHER CELLS 22 %; BODY FLUID RBC COUNT 1 /uL; BODY FLUID WBC TOTAL COUNT 48 /uL; LYMPHOCYTES,BODY FLUID 42 %
[2018-01-23] MEDS ORDERED: ENOXAPARIN 40 MG/0.4 ML (LOVENOX) SYR SC NR (16:45)
[2018-01-23] MEDS: TAMSULOSIN 0.4 MG (FLOMAX) CAP PO SCH (17:03)
[2018-01-23] MEDS: FAMOTIDINE 20 MG (PEPCID) TABLET PO SCH (20:13)
[2018-01-23] MEDS ORDERED: VANCOMYCIN 1500 MG/NS 500 ML IVPB IV SCH ×2 (21:00)
[2018-01-24] VITALS (16 sets, daily range): BP systolic 107–153; BP diastolic 56–94
[2018-01-24] MEDS: RT-ALBUTEROL/IPRATROPIUM 3 ML (DUONEB) VIAL INH SCH ×6 (02:29→22:13)
[2018-01-24] MEDS: ALPRAZolam 0.5 MG (XANAX) TAB PO PRN ×4 (03:50→23:38)
[2018-01-24 04:06] LABS: BASOPHILS % (AUTO) 0 % (0-10); EOSINOPHILS % (AUTO) 0 % (0-10); HEMATOCRIT 33 % (40-54); HEMOGLOBIN 10.5 G/DL (13.3-17.7); LYMPHOCYTES # (AUTO) 0.2 X 10^3 (1.0-4.0); LYMPHOCYTES % (AUTO) 3 % (12-44); MEAN CORPUSCULAR HEMOGLOBIN 28 PG (25-34); MEAN CORPUSCULAR HGB CONC 32 G/DL (32-36); MEAN CORPUSCULAR VOLUME 87 FL (80-99); MEAN PLATELET VOLUME 11.9 FL (7.4-10.4); MONOCYTES # (AUTO) 0.4 X 10^3 (0.0-1.0); MONOCYTES % (AUTO) 8 % (0-12); NEUTROPHILS % (AUTO) 90 % (42-75); PLATELET COUNT 96 10^3/uL (130-400); RED BLOOD COUNT 3.75 10^6/uL (4.35-5.85); RED CELL DISTRIBUTION WIDTH 18.2 % (10.0-14.5); WHITE BLOOD COUNT 5.6 10^3/uL (4.3-11.0)
[2018-01-24 04:35] LABS: ALANINE AMINOTRANSFERASE 16 U/L (0-55); ALBUMIN 2.6 GM/DL (3.2-4.5); ALKALINE PHOSPHATASE 55 U/L (40-136); BILIRUBIN,DIRECT 0.9 MG/DL (0.0-0.3); BILIRUBIN,INDIRECT 0.4 MG/DL; BILIRUBIN,TOTAL 1.3 MG/DL (0.1-1.0); BUN/CREATININE RATIO 59; CALCIUM 8.6 MG/DL (8.5-10.1); CARBON DIOXIDE 31 MMOL/L (21-32); CHLORIDE 104 MMOL/L (98-107); CREATININE SERUM 1.11 MG/DL (0.60-1.30); GFR ESTIMATED > 60; GLUCOSE 124 MG/DL (70-105); MAGNESIUM 1.8 MG/DL (1.8-2.4); PHOSPHORUS 2.2 MG/DL (2.3-4.7); SODIUM 142 MMOL/L (135-145); TOTAL PROTEIN 6.7 GM/DL (6.4-8.2)
[2018-01-24 04:50] LABS: LYMPHOCYTES % (MANUAL) 3 %; MONOCYTES % (MANUAL) 7 %; NEUTROPHILS % (MANUAL) 90 %
--- NOTE | 2018-01-24 05:29 | Pulmonary Progress Note ---
Subjective Time Seen by Provider: 05:42 Subjective/Events-last exam Pt appears to be doing better. Sepsis Event Evaluation Height, Weight, BMI Height: 5'9.00" Weight: 258lbs. 9.0oz. 117.236746sm; 36.2 BMI Method:Estimated Exam Exam Vital Signs Date Time Temp Pulse Resp B/P (MAP) Pulse Ox O2 Delivery O2 Flow Rate FiO2 01/24/18 04:22 97.6 High Flow N/C 8.00 01/24/18 04:00 87 23 119/68 (85) 97 High Flow N/C 9.00 01/24/18 04:00 High Flow N/C 8.00 01/24/18 03:00 82 18 122/68 (86) 95 High Flow N/C 9.00 01/24/18 02:30 91 High Flow N/C 8.00 01/24/18 02:00 84 17 114/67 (83) 95 High Flow N/C 9.00 01/24/18 01:00 80 15 107/66 (80) 95 High Flow N/C 9.00 01/24/18 01:00 80 01/24/18 00:00 74 14 127/75 (92) 93 High Flow N/C 9.00 01/24/18 00:00 High Flow N/C 9.00 01/24/18 00:00 97.8 01/23/18 23:00 80 18 98/67 (77) 92 High Flow N/C 9.00 01/23/18 22:47 92 High Flow N/C 8.00 01/23/18 22:00 89 102/66 (78) 90 High Flow N/C 9.00 01/23/18 21:00 97 120/75 (90) 90 High Flow N/C 9.00 01/23/18 20:00 93 High Flow N/C 9.00 01/23/18 20:00 101 141/96 (111) 98 High Flow N/C 9.00 01/23/18 19:58 99.0 High Flow N/C 9.00 01/23/18 19:00 98 01/23/18 19:00 98 145/82 (103) 100 High Flow N/C 9.00 01/23/18 18:56 98 High Flow N/C 8.00 01/23/18 18:00 107 145/88 (107) High Flow N/C 8.00 01/23/18 17:00 102 138/78 (98) 96 High Flow N/C 8.00 01/23/18 16:00 High Flow N/C 8.00 01/23/18 16:00 109 153/90 (111) 98 High Flow N/C 8.00 01/23/18 15:33 97 High Flow N/C 8.00 01/23/18 15:00 101 114/87 (96) 100 High Flow N/C 8.00 01/23/18 14:00 105 141/78 (99) 97 High Flow N/C 8.00 01/23/18 13:00 98 139/72 (94) 95 High Flow N/C 8.00 01/23/18 12:50 99 01/23/18 12:00 101 131/75 (93) 94 High Flow N/C 8.00 01/23/18 11:50 High Flow N/C 8.00 01/23/18 11:00 99 14 138/76 (96) High Flow N/C 8.00 01/23/18 10:23 96 High Flow N/C 8.00 01/23/18 10:00 104 40 146/71 (96) 95 High Flow N/C 8.00 01/23/18 09:00 High Flow N/C 8.00 01/23/18 09:00 101 16 154/85 (108) 92 High Flow N/C 8.00 01/23/18 08:00 104 24 126/79 (95) 94 High Flow N/C 8.00 01/23/18 07:00 103 01/23/18 06:35 94 High Flow N/C 8.00 I & O 01/24/18 07:00 Intake Total 3140 ml Output Total 4650 ml Balance -1510 ml Height & Weight Height: 5'9.00" Weight: 258lbs. 9.0oz. 117.390416oz; 36.2 BMI Method:Estimated General Appearance: No Apparent Distress, Obese HEENT: Normal ENT Inspection Neck: Full Range of Motion, Normal Inspection Respiratory: No Accessory Muscle Use, No Respiratory Distress, Decreased Breath Sounds Cardiovascular: Tachycardia Capillary Refill: Less Than 3 Seconds Gastrointestinal: non tender, soft, other (Diabetes) Extremity: Pedal Edema Neurologic/Psychiatric: Other (sleeping) Skin: Normal Color, Warm/Dry Lymphatic: No Adenopathy Results Lab Laboratory Tests 01/22/18 07:11 01/23/18 04:48 01/24/18 03:30 Assessment/Plan Assessment/Plan Post obstructive uropathy probably secondary to BPH-- -Flomax Hypoxia -with bilateral Right >Left pleural effusions -Lasix , Hep lock IVF -CXR is pending --Radiology was not able to thoracentesis secondary to it being a small amount. Acute renal failure -monitor Ascites with hx of hep C -S/p Paracentesis Metabolic acidosis -Monitor Morbid obesity probable OHS Hx of hep C Hyponatremia -Monitor Will transfer to 4th floor with tele. CARMEN SÁNCHEZ DO Jan 24, 2018 05:29
[2018-01-24] MEDS ORDERED: SODIUM PHOSPHATE INJ 15 MM in D5W 100 ML IVPB 100 ML IV ONE (05:45)
--- NOTE | 2018-01-24 07:25 | Progress Note (SOAP) ---
Subjective Time Seen by Provider: 07:22 Subjective/Events-last exam Patient had paracentesis done yesterday. Patient lost 10 pounds. Patient feeling better today. Patient anxious. Objective Exam Vital Signs Date Time Temp Pulse Resp B/P (MAP) Pulse Ox O2 Delivery O2 Flow Rate FiO2 01/24/18 07:05 82 98 48 01/24/18 06:53 95 High Flow N/C 8.00 01/24/18 06:00 80 16 131/77 (95) 98 High Flow N/C 7.00 01/24/18 05:44 78 16 99 High Flow N/C 7.00 01/24/18 05:00 79 21 120/68 (85) 98 High Flow N/C 8.00 01/24/18 04:22 97.6 High Flow N/C 8.00 01/24/18 04:00 87 23 119/68 (85) 97 High Flow N/C 9.00 01/24/18 04:00 High Flow N/C 8.00 01/24/18 03:00 82 18 122/68 (86) 95 High Flow N/C 9.00 01/24/18 02:30 91 High Flow N/C 8.00 01/24/18 02:00 84 17 114/67 (83) 95 High Flow N/C 9.00 01/24/18 01:00 80 15 107/66 (80) 95 High Flow N/C 9.00 01/24/18 01:00 80 01/24/18 00:00 74 14 127/75 (92) 93 High Flow N/C 9.00 01/24/18 00:00 High Flow N/C 9.00 01/24/18 00:00 97.8 01/23/18 23:00 80 18 98/67 (77) 92 High Flow N/C 9.00 01/23/18 22:47 92 High Flow N/C 8.00 01/23/18 22:00 89 102/66 (78) 90 High Flow N/C 9.00 01/23/18 21:00 97 120/75 (90) 90 High Flow N/C 9.00 01/23/18 20:00 93 High Flow N/C 9.00 01/23/18 20:00 101 141/96 (111) 98 High Flow N/C 9.00 01/23/18 19:58 99.0 High Flow N/C 9.00 01/23/18 19:00 98 01/23/18 19:00 98 145/82 (103) 100 High Flow N/C 9.00 01/23/18 18:56 98 High Flow N/C 8.00 01/23/18 18:00 107 145/88 (107) High Flow N/C 8.00 01/23/18 17:00 102 138/78 (98) 96 High Flow N/C 8.00 01/23/18 16:00 High Flow N/C 8.00 01/23/18 16:00 109 153/90 (111) 98 High Flow N/C 8.00 01/23/18 15:33 97 High Flow N/C 8.00 01/23/18 15:00 101 114/87 (96) 100 High Flow N/C 8.00 01/23/18 14:00 105 141/78 (99) 97 High Flow N/C 8.00 01/23/18 13:00 98 139/72 (94) 95 High Flow N/C 8.00 01/23/18 12:50 99 01/23/18 12:00 101 131/75 (93) 94 High Flow N/C 8.00 01/23/18 11:50 High Flow N/C 8.00 01/23/18 11:00 99 14 138/76 (96) High Flow N/C 8.00 01/23/18 10:23 96 High Flow N/C 8.00 01/23/18 10:00 104 40 146/71 (96) 95 High Flow N/C 8.00 01/23/18 09:00 High Flow N/C 8.00 01/23/18 09:00 101 16 154/85 (108) 92 High Flow N/C 8.00 01/23/18 08:00 104 24 126/79 (95) 94 High Flow N/C 8.00 I & O 01/24/18 07:00 Intake Total 4190 ml Output Total 5000 ml Balance -810 ml Capillary Refill : Less Than 3 Seconds General Appearance: No Apparent Distress, WD/WN HEENT: Normal ENT Inspection Neck: Normal Inspection Respiratory: No Accessory Muscle Use, No Respiratory Distress, Decreased Breath Sounds Cardiovascular: Regular Rate, Rhythm, No Murmur Gastrointestinal: other (Distended) Results Lab Laboratory Tests 01/24/18 03:30 Laboratory Tests 01/23/18 10:50: Urine Color YELLOW, Urine Clarity SLIGHTLY CLOUDY, Urine pH 5, Urine Specific [place] 1.010L, Urine Protein 1+H, Urine Glucose (UA) NEGATIVE, Urine Ketones NEGATIVE, Urine Nitrite NEGATIVE, Urine Bilirubin NEGATIVE, Urine Urobilinogen NORMAL, Urine Leukocyte Esterase 1+H, Urine RBC (Auto) 4+H, Urine RBC 10-25H, Urine WBC 0-2, Urine Squamous Epithelial Cells RARE, Urine Crystals NONE, Urine Bacteria TRACE, Urine Casts NONE, Urine Mucus NEGATIVE, Urine Culture Indicated NO 01/23/18 13:24: Prothrombin Time 16.1H, INR Comment 1.3 01/23/18 15:03: Body Fluid Source PERITONEAL, Body Fluid Color PALE YELLOW, Body Fluid Appearance CLEAR, Body Fluid pH 7.3, Body Fluid WBC 48, Body Fluid RBC 1, Body Fluid Polynuclear WBCs 12, Body Fluid Mononuclear WBCs 24, Body Fluid Lymphocytes 42, Body Fluid Other Cells 22, Body Fluid Glucose 124, Body Fluid Total Protein 3.4, Body Fluid Lactate Dehydrogenase 105, Body Fluid Amylase 20 01/24/18 03:30: White Blood Count 5.6, Red Blood Count 3.75L, Hemoglobin 10.5L, Hematocrit 33L, Mean Corpuscular Volume 87, Mean Corpuscular Hemoglobin 28, Mean Corpuscular Hemoglobin Concent 32, Red Cell Distribution Width 18.2H, Platelet Count 96L, Mean Platelet Volume 11.9H, Neutrophils (%) (Auto) 90H, Lymphocytes (%) (Auto) 3L, Monocytes (%) (Auto) 8, Eosinophils (%) (Auto) 0, Basophils (%) (Auto) 0, Neutrophils # (Auto) 5.0, Lymphocytes # (Auto) 0.2L, Monocytes # (Auto) 0.4, Eosinophils # (Auto) 0.0, Basophils # (Auto) 0.0, Neutrophils % (Manual) 90, Lymphocytes % (Manual) 3, Monocytes % (Manual) 7, Sodium Level 142, Potassium Level 5.0, Chloride Level 104, Carbon Dioxide Level 31, Anion Gap 7, Blood Urea Nitrogen 65H, Creatinine 1.11, Estimat Glomerular Filtration Rate > 60, BUN/ Creatinine Ratio 59, Glucose Level 124H, Calcium Level 8.6, Phosphorus Level 2.2L, Magnesium Level 1.8, Total Bilirubin 1.3H, Direct Bilirubin 0.9H, Indirect Bilirubin 0.4, Aspartate Amino Transf (AST/SGOT) 15, Alanine Aminotransferase (ALT/SGPT) 16, Alkaline Phosphatase 55, Total Protein 6.7, Albumin 2.6L Microbiology 01/18/18 Blood Culture - Preliminary, Resulted No growth 01/19/18 Urine Culture - Final, Complete Enterococcus faecalis Staphylococcus epidermidis 01/20/18 Lice/Scabies Examination - Final, Complete Assessment/Plan Assessment/Plan Assess & Plan/Chief Complaint Renal insufficiency acute and chronic area Cirrhosis. Congestive heart failure exacerbation. COPD. Alcoholism. Tobaccoism. CHF. . 01/23/18. Renal insufficiency better. Cirrhosis. New-onset tachycardia. Congestive heart failure improving. Ascites. Pleural effusion. Patient transferred to ICU. . 01/24. Renal insufficiency better. Cirrhosis. Tachycardia better. CHF. Ascites less. Pleural effusion Clinical Quality Measures DVT/VTE Risk/Contraindication: Risk Factor Score Per Nursin RFS Level Per Nursing on Admit: 4+=Very High LUZ ARZOLA DO Jan 24, 2018 07:25
--- NOTE | 2018-01-24 08:01 | Diagnostic Imaging Report ---
INDICATION: Hypoxemia. Portable chest 3:12 AM FINDINGS: There is cardiomegaly. There are bilateral pleural effusions larger on left than on the right. There is diffuse interstitial infiltrate in the right lung. There are bullous emphysematous changes in the left apex. IMPRESSION: Interstitial infiltrate right lung appears to have increased from previous day. Dictated by: Dictated on workstation # [id number]
[2018-01-24] MEDS: ACETAMINOPHEN 325 MG TABLET PO PRN (08:08)
[2018-01-24] MEDS: FUROSEMIDE 40 MG/4 ML INJ (LASIX) IVP SCH (08:21)
[2018-01-24] MEDS: cefTRIAXone FOR IV USE 1,000 MG in NS (IVPB) 50 ML IV SCH (08:21)
[2018-01-24] MEDS: ASPIRIN 81 MG CHEW (CHILDREN'S ASA) PO SCH ×2 (08:26→08:30)
[2018-01-24] MEDS: meTOproloL SUCCINATE 50 MG (TOPROL XL) TAB PO SCH ×2 (08:26→08:30)
[2018-01-24] MEDS: ENOXAPARIN 40 MG/0.4 ML (LOVENOX) SYR SC SCH (08:26)
[2018-01-24] MEDS: predniSONE 20 MG TAB PO SCH (08:26)
--- NOTE | 2018-01-24 08:58 | Progress Note-Cardiology ---
Cardiology SOAP Progress Note Subjective: C/O significant amt of abdominal discomfort which has progressively gotten worse over the last 3-4 hours per pt. Feels SOB is unchanged from yesterday. No c/o CP or palpitations. Reports no BM in several days. Objective: I&O/Vital Signs 01/24/18 01/24/18 01/24/18 01/24/18 01:00 01:00 02:00 02:30 Pulse 80 80 84 Resp 15 17 B/P (MAP) 107/66 (80) 114/67 (83) Pulse Ox 95 95 91 O2 Delivery High Flow N/C High Flow N/C High Flow N/C O2 Flow Rate 9.00 9.00 8.00 01/24/18 01/24/18 01/24/18 01/24/18 03:00 04:00 04:00 04:22 Temp 97.6 Pulse 82 87 Resp 18 23 B/P (MAP) 122/68 (86) 119/68 (85) Pulse Ox 95 97 O2 Delivery High Flow N/C High Flow N/C High Flow N/C High Flow N/C O2 Flow Rate 9.00 8.00 9.00 8.00 01/24/18 01/24/18 01/24/18 01/24/18 05:00 05:44 06:00 06:53 Pulse 79 78 80 Resp 21 16 16 B/P (MAP) 120/68 (85) 131/77 (95) Pulse Ox 98 99 98 95 O2 Delivery High Flow N/C High Flow N/C High Flow N/C High Flow N/C O2 Flow Rate 8.00 7.00 7.00 8.00 01/24/18 01/24/18 01/24/18 01/24/18 07:00 07:00 07:05 08:00 Pulse 82 84 82 Resp 16 B/P (MAP) 153/94 (113) Pulse Ox 97 98 O2 Delivery High Flow N/C High Flow N/C O2 Flow Rate 7.00 7.00 FiO2 48 01/24/18 01/24/18 01/24/18 01/24/18 08:00 09:00 10:00 10:50 Temp 97.0 Pulse 95 96 86 Resp 20 19 16 B/P (MAP) 142/85 (104) 139/79 (99) Pulse Ox 96 98 98 90 O2 Delivery High Flow N/C High Flow N/C High Flow N/C Vapotherm O2 Flow Rate 7.00 7.00 7.00 20.00 FiO2 100 01/24/18 00:00 Intake Total 2290 ml Output Total 3875 ml Balance -1585 ml Weight (Pounds): 247 Weight (Ounces): 7.0 Weight (Calculated Kilograms): 112.543260 Constitutional: AAO x 3, well-developed, well-nourished Respiratory: No accessory muscle use; rhonchi (scattered, exp), other ( diminished air entry at both bases) Cardiovascular: regular rate-rhythm, S1 and S2, systolic murmur (soft AIMEE at card base) Gastrointestional: tender, distended; No guarding, No rebound; audible bowel sounds (hypo) Extremities: No clubbing, No cyanosis; significant edema (bilateral leg edema) Neurologic/Psychiatric: grossly intact, power is 5/5 both on sides Skin: other (scratch melendrez and abrasions over the skin of both legs) Results/Procedures: Labs Laboratory Tests 01/23/18 13:24: Prothrombin Time 16.1H, INR Comment 1.3 01/23/18 15:03: Body Fluid Source PERITONEAL, Body Fluid Color PALE YELLOW, Body Fluid Appearance CLEAR, Body Fluid pH 7.3, Body Fluid WBC 48, Body Fluid RBC 1, Body Fluid Polynuclear WBCs 12, Body Fluid Mononuclear WBCs 24, Body Fluid Lymphocytes 42, Body Fluid Other Cells 22, Body Fluid Glucose 124, Body Fluid Total Protein 3.4, Body Fluid Lactate Dehydrogenase 105, Body Fluid Amylase 20 01/24/18 03:30: White Blood Count 5.6, Red Blood Count 3.75L, Hemoglobin 10.5L, Hematocrit 33L, Mean Corpuscular Volume 87, Mean Corpuscular Hemoglobin 28, Mean Corpuscular Hemoglobin Concent 32, Red Cell Distribution Width 18.2H, Platelet Count 96L, Mean Platelet Volume 11.9H, Neutrophils (%) (Auto) 90H, Lymphocytes (%) (Auto) 3L, Monocytes (%) (Auto) 8, Eosinophils (%) (Auto) 0, Basophils (%) (Auto) 0, Neutrophils # (Auto) 5.0, Lymphocytes # (Auto) 0.2L, Monocytes # (Auto) 0.4, Eosinophils # (Auto) 0.0, Basophils # (Auto) 0.0, Neutrophils % (Manual) 90, Lymphocytes % (Manual) 3, Monocytes % (Manual) 7, Sodium Level 142, Potassium Level 5.0, Chloride Level 104, Carbon Dioxide Level 31, Anion Gap 7, Blood Urea Nitrogen 65H, Creatinine 1.11, Estimat Glomerular Filtration Rate > 60, BUN/ Creatinine Ratio 59, Glucose Level 124H, Calcium Level 8.6, Phosphorus Level 2.2L, Magnesium Level 1.8, Total Bilirubin 1.3H, Direct Bilirubin 0.9H, Indirect Bilirubin 0.4, Aspartate Amino Transf (AST/SGOT) 15, Alanine Aminotransferase (ALT/SGPT) 16, Alkaline Phosphatase 55, Total Protein 6.7, Albumin 2.6L Microbiology 01/18/18 Blood Culture - Final, Complete No growth 01/23/18 Gram Stain - Final, Resulted 01/23/18 Anaerobic Culture, Resulted Pending 01/23/18 Surgical Culture - Preliminary, Resulted No growth 01/23/18 Fungal Culture 1, Resulted Pending 01/19/18 Urine Culture - Final, Complete Enterococcus faecalis Staphylococcus epidermidis 01/20/18 Lice/Scabies Examination - Final, Complete Procedures NAME: PANCHO WINSTON [facility] REC#: [id number] PT STATUS: ADM IN : 1950 PHYSICIAN: CARMEN SÁNCHEZ DO ADMIT DATE: 01/18/18/ICU Draft Date of Exam:01/24/18 CHEST 1 VIEW, AP/PA ONLY INDICATION: Hypoxemia. Portable chest 3:12 AM FINDINGS: There is cardiomegaly. There are bilateral pleural effusions larger on left than on the right. There is diffuse interstitial infiltrate in the right lung. There are bullous emphysematous changes in the left apex. IMPRESSION: Interstitial infiltrate right lung appears to have increased from previous day. Dictated on workstation # [id number] Dict: 01/24/18727 Trans: 01/24/18 08 [id number] Interpreted by: RD SAUNDERS MD Electronically signed by: A/P: Assessment: Abdominal discomfort of undetermined etiology Acute renal failure probably primarily due to intravasc vol depletion, improving One brief episode of probable atrial flutter on the morning of 01/23/18 at approx 160 bpm and lasting approx 2 min Edema/anasarca, likely due to iv fluids and 3rd spacing and hepatic cirrhosis and hypoalbuminemia Elevated BNP, probably due to ac renal failure Chronic Hep-C and hepatic cirrhosis, managed by [facility] at [facility] CAD, s/p CABG in October 2010. MPI of 09/16/15 showed basal inf infarction with only minimal antoinette-infarct ischemia and LVEF 69%. Echo of 07/17/[address] Aparicio at [facility], [place], is reported to have shown LVEF 55%, RV overload, PASP approx 57 mmHg, mild to mod MR, severe TR H/o heavy alcohol use in the past, currently down to two beers a day (according to him) RBBB, chronic Chronic tobacco use H/o intolerance statin COPD Intolerance to enalapril (stopped at [facility] in November 2014 after he had presented with tongue swelling) Obesity with BMI approx 39 Plan: * Complex management due to multiple comorbidities * Paracentesis yesterday * Unable to have thoracentesis d/t size of effusion * Abdominal pain this morning of undetermined etiology - no BM documented for the last 5 days - hypoactive BS this morning * Monitor labs closely * IVF stopped and Lasix given per pulmonary services Physician Assessment Physician Assessment Gen malaise, some shortness of breath, no cp this am Lungs: dec bs at bases Cor: reg Ext: mod edema A&R * As documented in our note that I updated (italics) * I answered his questions * MARI Arroyo RAFTSMAN Jan 24, 2018 08:58 BHARAT SOSA MD [facility] Jan 24, 2018 12:17
[2018-01-24] MEDS ORDERED: ONDANSETRON 4 MG/2 ML (SDV) Z0FRAN IVP PRN (09:15)
[2018-01-24] MEDS: PANTOPRAZOLE 40 MG (PROTONIX) VIAL IV SCH (09:28)
--- NOTE | 2018-01-24 11:04 | Physical Therapy Evaluation ---
PT Evaluation-General Medical Diagnosis Admission Date Jan 18, 2018 at 15:05 Medical Diagnosis: Hypoglycemia, hypotensive Onset Date: Jan 18, 2018 Therapy Diagnosis Therapy Diagnosis: generalized weakness/debility Height/Weight Height (Feet): 5 Height (Inches): 9.00 Weight (Pounds): 247 Weight (Ounces): 7.0 Precautions Precautions/Isolations: Fall Prevention, Standard Precautions Weight Bear Status Right Lower Extremity: Right Full Weight Bearing Left Lower Extremity: Left Full Weight Bearing Referral Physician: Dat Patel DO Reason for Referral: Evaluation/Treatment Medical History Pertinent Medical History: CABG, COPD, Renal Insufficiency, Smoking Current History transferred back to 4th from ICU due to acute renal failure Reviewed History: Yes Social History Home: Single Level Current Living Status: Alone Entry Into Home: Level Entry PT Steps Into Home: 0 Prior/Core FIM Prior Level of Function Functional [place] Measure 0=Not Assessed/NA 4=Minimal Assistance 1=Total Assistance 5=Supervision or Setup 2=Maximal Assistance 6=Modified [place] 3=Moderate Assistance 7=Complete [place] Bed Mobility: 7 Transfers (B,C,W/C) (FIM): 7 Gait: 7 Locomotion: 7 PT Evaluation-Current Subjective Patient is extremely lethargic . Pain Numeric Pain Scale: 8 Location: Left, Lower Location Body Site: Abdomen Pain Description: Pressure, Chronic Objective Patient Orientation: Confused Problem Solving: Poor Attachments: Goldberg Catheter, IV ROM/Strength ROM Lower Extremities bilateral LE WFL ( noted edema bilaterally) Strength Lower Extremities 3/5 grossly bilaterally Integumentary/Posture Integumentary refer to nursing notes Bladder Incontinence: Goldberg Cath Posture WFL Neuromuscular (Tone, Coordination, Reflexes) diminished coordination due to lethargy Sensory Vision: Functional Hearing: Functional Sensation Right Upper Extremit: Intact Sensation Left Upper Extremity: Intact Sensation Right Lower Extremit: Impaired Sensation Left Lower Extremity: Impaired Transfers Functional [place] Measure 0=Not Assessed/NA 4=Minimal Assistance 1=Total Assistance 5=Supervision or Setup 2=Maximal Assistance 6=Modified [place] 3=Moderate Assistance 7=Complete [place] Transfers (B, C, W/C) (FIM): 3 Scootin Rollin Supine to/from Sit: 3 Sit to/from Stand: 5 Gait Mode of Locomotion: Walk Anticipated Mode of Locomotion: Walk Gait (FIM): 1 Distance (FIM): 1=up to 49 ft Distance: 5' sidesteps Gait Level of Assist: 5 Gait Assistive Device: FWW Comments/Gait Description slow/no foot clearance Balance Sitting Static: Fair Sitting Dynamic: Fair Standing Static: Fair Standing Dynamic: Fair Assessment/Needs 67 y.o. male, will be seen by skilled PT to address functional strength and mobility. Patient is currently extremely lethargic and is not tolerating intensive therapy. Rehab Potential: Guarded PT Short Term Goals Short Term Goals Time Frame: Feb 02, 2018 Transfers (B,C,W/C) (FIM): 5 Gait (FIM): 5 Distance (FIM): 3=150 ft Gait Distance Comment: 300ft Gait Level of Assist: 5 Gait Assistive Device: FWW PT Information Architect Goals Senior Care Goals PT Information Architect Goals Time Frame: Feb 09, 2018 Transfers (B,C,W/C) (FIM): 6 Gait (FIM): 1 Gait distance (FIM): 1=up to 49 ft Distance: 45' Gait Level of Assist: 5 Gait Assistive Device: FWW PT Plan Problem List Problem List: Activity Tolerance, Functional Strength, Safety, Balance, Gait, Transfer, Bed Mobility Treatment/Plan Treatment Plan: Continue Plan of Care Treatment Plan: Bed Mobility, Concurrent Therapy, Education, Functional Activity Rachel, Functional Strength, Gait, Therapeutic Exercise, Transfers Treatment Duration: Feb 09, 2018 Frequency: 6 times per week Estimated Hrs Per Day: .5 hour per day Patient and/or Family Agrees t: Yes Time/GCodes Time In: 1035 Time Out: 1050 Total Billed Treatment Time: 20 Total Billed Treatment 1 visit EVModC 20 min G Codes Necessary: No CESAR KITCHEN PT Jan 24, 2018 11:04
--- NOTE | 2018-01-24 12:43 | Progress Note-Urology ---
Progress Note-Urology Progress Notes/Assess & Plan Progress/Assessment & Plan ENNIS STILL IN. Final Diagnosis URINE RETENTION RICCARDO GARCIA MD Jan 24, 2018 12:43 pm
[2018-01-24] MEDS ORDERED: HYDROcodone/APAP 5 MG/325 MG (LORTAB) TAB ONE (14:37)
[2018-01-24] MEDS: HYDROcodone/APAP 5 MG/325 MG (LORTAB) TAB PO PRN ×2 (14:41→23:38)
[2018-01-24] MEDS: TAMSULOSIN 0.4 MG (FLOMAX) CAP PO SCH (18:23)
[2018-01-24] MEDS ORDERED: TROUGH ORDER-PHARMACY XX ONE (20:00)
[2018-01-24] MEDS: FAMOTIDINE 20 MG (PEPCID) TABLET PO SCH (21:00)
[2018-01-25] MEDS: RT-ALBUTEROL/IPRATROPIUM 3 ML (DUONEB) VIAL INH SCH ×6 (02:43→20:02)
[2018-01-25 03:21] VITALS: BP 108/56
[2018-01-25 06:26] LABS: BASOPHILS % (AUTO) 0 % (0-10); EOSINOPHILS # (AUTO) 0.1 10^3/uL (0.0-0.3); EOSINOPHILS % (AUTO) 3 % (0-10); HEMATOCRIT 31 % (40-54); HEMOGLOBIN 9.8 G/DL (13.3-17.7); LYMPHOCYTES # (AUTO) 0.4 X 10^3 (1.0-4.0); LYMPHOCYTES % (AUTO) 9 % (12-44); MEAN CORPUSCULAR HEMOGLOBIN 28 PG (25-34); MEAN CORPUSCULAR HGB CONC 32 G/DL (32-36); MEAN CORPUSCULAR VOLUME 88 FL (80-99); MEAN PLATELET VOLUME 12.7 FL (7.4-10.4); MONOCYTES # (AUTO) 0.5 X 10^3 (0.0-1.0); MONOCYTES % (AUTO) 11 % (0-12); NEUTROPHILS # (AUTO) 3.3 X 10^3 (1.8-7.8); NEUTROPHILS % (AUTO) 78 % (42-75); PLATELET COUNT 96 10^3/uL (130-400); RED BLOOD COUNT 3.52 10^6/uL (4.35-5.85); RED CELL DISTRIBUTION WIDTH 18.4 % (10.0-14.5); WHITE BLOOD COUNT 4.3 10^3/uL (4.3-11.0)
[2018-01-25 06:49] LABS: BUN/CREATININE RATIO 61; CALCIUM 8.5 MG/DL (8.5-10.1); CARBON DIOXIDE 30 MMOL/L (21-32); CHLORIDE 102 MMOL/L (98-107); CREATININE SERUM 1.09 MG/DL (0.60-1.30); GFR ESTIMATED > 60; GLUCOSE 88 MG/DL (70-105); MAGNESIUM 1.9 MG/DL (1.8-2.4); POTASSIUM 4.9 MMOL/L (3.6-5.0); SODIUM 140 MMOL/L (135-145)
[2018-01-25] MEDS: ALPRAZolam 0.5 MG (XANAX) TAB PO PRN ×2 (06:59→13:38)
[2018-01-25] MEDS: predniSONE 20 MG TAB PO SCH (06:59)
[2018-01-25] MEDS: HYDROcodone/APAP 5 MG/325 MG (LORTAB) TAB PO PRN ×2 (06:59→13:37)
--- NOTE | 2018-01-25 07:15 | Cardiology Progress Note ---
Subjective Date Seen by Provider: Jan 25, 2018 Time Seen by Provider: 07:11 Subjective/Events-last exam Patient is laying down in bed, complaint of fatigue and loss of energy, reporting improvement in his abdominal pain Review of Systems General: No Chills, No Night Sweats; Fatigue, Malaise; No Appetite, No Other HEENT: No Head Aches, No Visual Changes, No Eye Pain, No Ear Pain, No Dysphasia , No Sinus Congestion, No Post Nasal Drip, No Sore Throat, No Other Pulmonary: Dyspnea; No Cough, No Pleuritic Chest Pain, No Other Cardiovascular: Edema; No: Chest Pain, Palpitations, Orthopnea, Paroxysmal Noc. Dyspnea, Lt Headedness, Other Objective-Cardiology Exam Last Set of Vital Signs Vital Signs 01/25/18 01/25/18 02:44 03:21 Temp 97.4 Pulse 76 Resp 16 B/P (MAP) 108/56 (73) Pulse Ox 95 O2 Delivery Vapotherm O2 Flow Rate 50.00 30.00 FiO2 50 Capillary Refill : Less Than 3 Seconds I&O Intake and Output 01/25/18 00:00 Intake Total 1935 ml Output Total 2600 ml Balance -665 ml Intake Oral 1080 ml IV Total 855 ml Output Urine Total 2600 ml General: Alert, Oriented X3, Cooperative HEENT: Atraumatic, PERRLA Neck: Supple, No Thyromegaly Lungs: Normal Air Movement, Other (Bilateral rhonchi) Heart: Regular Rate, Normal S1, Normal S2, No Murmurs Abdomen: Other (Distended abdomen with fluid wave) Extremities: No Clubbing, No Cyanosis, Other (Peripheral edema) Skin: Other (Multiple pruritic lesions) Neuro: Normal Tone, Other (Lethargic) Psych/Mental Status: Other (Lethargic) Results Lab Laboratory Tests 01/25/18 05:24 A/P-Cardiology Admission Diagnosis Coronary artery disease Anasarca Atrial flutter Acute renal failure Assessment/Plan Abdominal discomfort of undetermined etiology, reporting improvement today, workup is in progress. Status post acute renal failure, better at this time. Continue to monitor renal function. Transient atrial flutter occurred on January 23, 2018, lasted for about 2 minutes. No further episodes were reported. Continue to monitor. Anasarca, hepatic cirrhosis and hypoalbuminemia, had paracentesis. Managed by primary care team. Chronic Hep-C and hepatic cirrhosis, managed by [facility] at [facility] CAD, s/p CABG in October 2010. MPI of 09/16/15 showed basal inf infarction with only minimal antoinette-infarct ischemia and LVEF 69%. Echo of 07/17/[address] Aparicio at [facility], [place], is reported to have shown LVEF 55%, RV overload, PASP approx 57 mmHg, mild to mod MR, severe TR, continue to monitor H/o heavy alcohol use in the past, currently down to two beers a day (according to him) Abnormal EKG with chronic right bundle branch block. Continue to monitor Chronic tobacco use H/o intolerance statin due to multiple comorbid condition. COPD Intolerance to enalapril (stopped at [facility] in November 2014 after he had presented with tongue swelling) Obesity with BMI approx 37 Clinical Quality Measures DVT/VTE Risk/Contraindication: Risk Factor Score Per Nursin RFS Level Per Nursing on Admit: 4+=Very High MILA LOERA MD Jan 25, 2018 07:15
--- NOTE | 2018-01-25 07:22 | Pulmonary Progress Note ---
Subjective Time Seen by Provider: 07:16 Subjective/Events-last exam Pt has been confused. Sepsis Event Evaluation Height, Weight, BMI Height: 5'9.00" Weight: 252lbs. 7.0oz. 114.[age]yo; 36.2 BMI Method:Estimated Exam Exam Vital Signs Date Time Temp Pulse Resp B/P (MAP) Pulse Ox O2 Delivery O2 Flow Rate FiO2 01/25/18 03:21 97.4 76 16 108/56 (73) 95 Vapotherm 50.00 30.00 01/25/18 02:44 95 Vapotherm 30.00 50 01/25/18 01:00 78 01/24/18 23:56 98.6 80 16 131/64 (86) 97 Vapotherm 50.00 30.00 01/24/18 22:14 94 Vapotherm 30.00 50 01/24/18 20:00 Vapotherm 30.00 01/24/18 19:41 81 01/24/18 19:40 98.0 81 16 108/60 (76) 95 Vapotherm 50.00 30.00 01/24/18 19:03 90 Vapotherm 30.00 50 01/24/18 16:30 97.6 82 20 118/81 (93) 90 Vapotherm 50.00 20.00 01/24/18 14:36 93 Vapotherm 30.00 50 01/24/18 13:00 84 01/24/18 12:00 97.0 86 20 134/77 (96) 97 Vapotherm 50.00 20.00 01/24/18 10:50 90 Vapotherm 20.00 100 01/24/18 10:30 97.3 88 22 110/67 (81) 91 Vapotherm 100.00 20.00 01/24/18 10:00 86 16 98 High Flow N/C 7.00 01/24/18 09:00 96 19 139/79 (99) 98 High Flow N/C 7.00 01/24/18 08:00 97.0 95 20 142/85 (104) 96 High Flow N/C 7.00 01/24/18 08:00 High Flow N/C 7.00 I & O 01/25/18 07:00 Intake Total 585 ml Output Total 1825 ml Balance -1240 ml Height & Weight Height: 5'9.00" Weight: 252lbs. 7.0oz. 114.027764dq; 36.2 BMI Method:Estimated General Appearance: No Apparent Distress, WD/WN HEENT: Normal ENT Inspection Neck: Normal Inspection Respiratory: No Accessory Muscle Use, No Respiratory Distress, Decreased Breath Sounds Cardiovascular: Regular Rate, Rhythm, No Murmur Capillary Refill: Less Than 3 Seconds Gastrointestinal: other (Distended) Extremity: Pedal Edema Neurologic/Psychiatric: Other (sleeping) Skin: Normal Color, Warm/Dry Lymphatic: No Adenopathy Results Lab Laboratory Tests 01/24/18 03:30 01/25/18 05:24 Assessment/Plan Assessment/Plan Post obstructive uropathy probably secondary to BPH-- -[place] Hypoxia -with bilateral Right >Left pleural effusions -Lasix , Hep lock IVF -CXR is pending --Radiology was not able to thoracentesis secondary to it being a small amount. Pleural effusion - small -Will increase Lasix to 40mg BID Metabolic encephalopathy -Monitor Acute renal failure - improved -monitor Ascites with hx of hep C -S/p Paracentesis Metabolic acidosis -Monitor Morbid obesity probable OHS Hx of hep C Hyponatremia -Monitor With patient's multiple comorbidities, and debility he has a very poor prognosis. If patient CODED or respiratory failure developed ACLS and mechanical ventilation would be futile. I recommend DNR status and strong consideration for hospice care. CARMEN SÁNCHEZ DO Jan 25, 2018 7:22 am
--- NOTE | 2018-01-25 07:55 | Progress Note (SOAP) ---
Subjective Time Seen by Provider: 07:50 Subjective/Events-last exam Patient lethargic today. Patient cyanotic yesterday. Patient unable to talk to me. Patient did know who I am. If patient's crashes he's not a candidate for CPR. Patient has no family to get in touch with. Checking serum ammonia level Objective Exam Vital Signs Date Time Temp Pulse Resp B/P (MAP) Pulse Ox O2 Delivery O2 Flow Rate FiO2 01/25/18 03:21 97.4 76 16 108/56 (73) 95 Vapotherm 50.00 30.00 01/25/18 02:44 95 Vapotherm 30.00 50 01/25/18 01:00 78 01/24/18 23:56 98.6 80 16 131/64 (86) 97 Vapotherm 50.00 30.00 01/24/18 22:14 94 Vapotherm 30.00 50 01/24/18 20:00 Vapotherm 30.00 01/24/18 19:41 81 01/24/18 19:40 98.0 81 16 108/60 (76) 95 Vapotherm 50.00 30.00 01/24/18 19:03 90 Vapotherm 30.00 50 01/24/18 16:30 97.6 82 20 118/81 (93) 90 Vapotherm 50.00 20.00 01/24/18 14:36 93 Vapotherm 30.00 50 01/24/18 13:00 84 01/24/18 12:00 97.0 86 20 134/77 (96) 97 Vapotherm 50.00 20.00 01/24/18 10:50 90 Vapotherm 20.00 100 01/24/18 10:30 97.3 88 22 110/67 (81) 91 Vapotherm 100.00 20.00 01/24/18 10:00 86 16 98 High Flow N/C 7.00 01/24/18 09:00 96 19 139/79 (99) 98 High Flow N/C 7.00 01/24/18 08:00 97.0 95 20 142/85 (104) 96 High Flow N/C 7.00 01/24/18 08:00 High Flow N/C 7.00 I & O 01/25/18 07:00 Intake Total 685 ml Output Total 2125 ml Balance -1440 ml Capillary Refill : Less Than 3 Seconds General Appearance: No Apparent Distress, Obese Respiratory: No Accessory Muscle Use, No Respiratory Distress, Decreased Breath Sounds Cardiovascular: Regular Rate, Rhythm Gastrointestinal: other (Distended) Extremity: Pedal Edema Results Lab Laboratory Tests 01/25/18 05:24 Laboratory Tests 01/24/18 20:10: Vancomycin Level Trough 19.3 01/25/18 05:24: White Blood Count 4.3, Red Blood Count 3.52L, Hemoglobin 9.8L, Hematocrit 31L, Mean Corpuscular Volume 88, Mean Corpuscular Hemoglobin 28, Mean Corpuscular Hemoglobin Concent 32, Red Cell Distribution Width 18.4H, Platelet Count 96L, Mean Platelet Volume 12.7H, Neutrophils (%) (Auto) 78H, Lymphocytes (%) (Auto) 9L, Monocytes (%) (Auto) 11, Eosinophils (%) (Auto) 3, Basophils (%) (Auto) 0, Neutrophils # (Auto) 3.3, Lymphocytes # (Auto) 0.4L, Monocytes # (Auto) 0.5, Eosinophils # (Auto) 0.1, Basophils # (Auto) 0.0, Sodium Level 140, Potassium Level 4.9, Chloride Level 102, Carbon Dioxide Level 30, Anion Gap 8, Blood Urea Nitrogen 66H, Creatinine 1.09, Estimat Glomerular Filtration Rate > 60, BUN/ Creatinine Ratio 61, Glucose Level 88, Calcium Level 8.5, Phosphorus Level 2.5, Magnesium Level 1.9 Microbiology 01/18/18 Blood Culture - Final, Complete No growth 01/23/18 Gram Stain - Final, Resulted 01/23/18 Anaerobic Culture, Resulted Pending 01/23/18 Surgical Culture - Preliminary, Resulted No growth 01/23/18 Fungal Culture 1 - Preliminary, Resulted See Comments 01/19/18 Urine Culture - Final, Complete Enterococcus faecalis Staphylococcus epidermidis 01/20/18 Lice/Scabies Examination - Final, Complete Assessment/Plan Assessment/Plan Assess & Plan/Chief Complaint Renal insufficiency acute and chronic area Cirrhosis. Congestive heart failure exacerbation. COPD. Alcoholism. Tobaccoism. CHF. . 01/23/18. Renal insufficiency better. Cirrhosis. New-onset tachycardia. Congestive heart failure improving. Ascites. Pleural effusion. Patient transferred to ICU. . 01/24. Renal insufficiency better. Cirrhosis. Tachycardia better. CHF. Ascites less. Pleural effusion. . 01/25/18. Patient more lethargic. Patient cyanotic yesterday. Patient fragile. Patient not candidate for CPR if crashes Clinical Quality Measures DVT/VTE Risk/Contraindication: Risk Factor Score Per Nursin RFS Level Per Nursing on Admit: 4+=Very High LUZ ARZOLA DO Jan 25, 2018 07:55
[2018-01-25 08:00] VITALS: BP 120/58
[2018-01-25] MEDS: PANTOPRAZOLE 40 MG (PROTONIX) VIAL IV SCH (08:00)
[2018-01-25] MEDS: FUROSEMIDE 40 MG/4 ML INJ (LASIX) IVP SCH ×2 (08:00→17:06)
[2018-01-25] MEDS: FAMOTIDINE 20 MG (PEPCID) TABLET PO SCH ×2 (08:12→21:13)
[2018-01-25] MEDS: cefTRIAXone FOR IV USE 1,000 MG in NS (IVPB) 50 ML IV SCH (08:12)
[2018-01-25] MEDS: ENOXAPARIN 40 MG/0.4 ML (LOVENOX) SYR SC SCH (08:13)
[2018-01-25] MEDS: ASPIRIN 81 MG CHEW (CHILDREN'S ASA) PO SCH (08:13)
[2018-01-25] MEDS: meTOproloL SUCCINATE 50 MG (TOPROL XL) TAB PO SCH (08:13)
--- NOTE | 2018-01-25 08:19 | Progress Note-Urology ---
Progress Note-Urology Progress Notes/Assess & Plan Progress/Assessment & Plan WE WILL SEE ON PRN BASIS Final Diagnosis URINE RETENTION RICCARDO GARCIA MD Jan 25, 2018 8:19 am
--- NOTE | 2018-01-25 08:24 | Progress Note-Urology ---
Progress Note-Urology Progress Notes/Assess & Plan Progress/Assessment & Plan I SHARED WITH DR NEW AND THE PATIENT MY PHONE DISCUSSION WITH DR LIT CONN AT [facility], WHO AGREED WITH MY PLAN I.E CONTINUE SAME TILL AFTER THE WEEKEND, THEN PLAN PCN TUBE AND DC STENT EITHER AT [facility] ([facility]) OR [facility], AND RETURN TO [facility] FOR RECOVERY FROM SURGERY. IN 6 WEEKS, HE WILL REPAIR THE URETER. IF NEEDS A PCN TUBE OVER THE WEEKEND, THEN EITHER [facility] OR [facility].. WE WILL TAKE ONE DAY AT A TIME Final Diagnosis LEFT URETERAL LACERATION RICCARDO GARCIA MD Jan 25, 2018 8:24 am
--- NOTE | 2018-01-25 09:15 | Diagnostic Imaging Report ---
INDICATION: Hypoxia and shortness of breath Frontal chest obtained at 327 hours a.m. and compared with yesterday. There is prominent cardiomegaly and post sternotomy change with diffuse interstitial edema and bilateral infiltrates. There is pleural fluid on both sides left greater than right, these findings are all unchanged from yesterday. IMPRESSION: Prominent cardiomegaly and post sternotomy change with unchanged interstitial edema and bilateral infiltrates. There is no change in bilateral pleural effusions. Dictated by: Dictated on workstation # [id number]
--- NOTE | 2018-01-25 10:11 | Physical Therapy Progress Note ---
Therapy Progress Note Patient has had a decline in medical status. PT consulted with RN to dismiss patient from services, both confirm. CESAR KITCHEN PT Jan 25, 2018 10:11
[2018-01-25 12:00] VITALS: BP 136/59
[2018-01-25 16:26] VITALS: BP 100/57
[2018-01-25] MEDS: TAMSULOSIN 0.4 MG (FLOMAX) CAP PO SCH (17:06)
[2018-01-25 19:48] VITALS: BP 120/58
[2018-01-26] VITALS: BP 126/63
[2018-01-26] MEDS: RT-ALBUTEROL/IPRATROPIUM 3 ML (DUONEB) VIAL INH SCH ×3 (02:25→10:42)
[2018-01-26 04:00] VITALS: BP 122/55
[2018-01-26] MEDS: ALPRAZolam 0.5 MG (XANAX) TAB PO PRN (04:27)
[2018-01-26] MEDS: HYDROcodone/APAP 5 MG/325 MG (LORTAB) TAB PO PRN (04:27)
[2018-01-26] MEDS: FUROSEMIDE 40 MG/4 ML INJ (LASIX) IVP SCH (05:59)
[2018-01-26] MEDS: predniSONE 20 MG TAB PO SCH (06:01)
[2018-01-26 06:53] LABS: BASOPHILS % (AUTO) 0 % (0-10); EOSINOPHILS % (AUTO) 0 % (0-10); HEMATOCRIT 29 % (40-54); HEMOGLOBIN 9.1 G/DL (13.3-17.7); LYMPHOCYTES # (AUTO) 0.2 X 10^3 (1.0-4.0); LYMPHOCYTES % (AUTO) 5 % (12-44); MEAN CORPUSCULAR HEMOGLOBIN 28 PG (25-34); MEAN CORPUSCULAR HGB CONC 32 G/DL (32-36); MEAN CORPUSCULAR VOLUME 89 FL (80-99); MEAN PLATELET VOLUME 11.4 FL (7.4-10.4); MONOCYTES # (AUTO) 0.5 X 10^3 (0.0-1.0); MONOCYTES % (AUTO) 10 % (0-12); NEUTROPHILS # (AUTO) 3.8 X 10^3 (1.8-7.8); NEUTROPHILS % (AUTO) 85 % (42-75); PLATELET COUNT 96 10^3/uL (130-400); RED BLOOD COUNT 3.24 10^6/uL (4.35-5.85); RED CELL DISTRIBUTION WIDTH 18.6 % (10.0-14.5); WHITE BLOOD COUNT 4.5 10^3/uL (4.3-11.0)
[2018-01-26 07:15] LABS: BUN/CREATININE RATIO 54; CALCIUM 8.5 MG/DL (8.5-10.1); CARBON DIOXIDE 32 MMOL/L (21-32); CHLORIDE 103 MMOL/L (98-107); GFR ESTIMATED > 60; GLUCOSE 119 MG/DL (70-105); MAGNESIUM 1.8 MG/DL (1.8-2.4); POTASSIUM 4.6 MMOL/L (3.6-5.0); SODIUM 143 MMOL/L (135-145)
--- NOTE | 2018-01-26 07:59 | Pulmonary Progress Note ---
Subjective Time Seen by Provider: 07:58 Subjective/Events-last exam PT is requiring a lot of oxygen. Sepsis Event Evaluation Height, Weight, BMI Height: 5'9.00" Weight: 256lbs. 7.0oz. [id number]; 36.2 BMI Method:Estimated Exam Exam Vital Signs Date Time Temp Pulse Resp B/P (MAP) Pulse Ox O2 Delivery O2 Flow Rate FiO2 01/26/18 07:45 92 Vapotherm 25.00 100 01/26/18 07:00 78 01/26/18 04:00 96.8 85 20 122/55 (77) 96 Vapotherm 100.00 30.00 01/26/18 02:25 98 Vapotherm 27.00 80 01/26/18 01:00 78 01/26/18 00:00 96.5 80 20 126/63 (84) 100 Vapotherm 100.00 30.00 01/25/18 20:06 99 Vapotherm 30.00 100 01/25/18 20:00 Vapotherm 30.00 01/25/18 19:48 96.8 79 20 120/58 (78) 100 Vapotherm 100.00 30.00 01/25/18 19:00 75 01/25/18 16:26 96.8 79 18 100/57 (71) 100 Vapotherm 100.00 30.00 01/25/18 14:39 75 Vapotherm 30.00 50 01/25/18 13:00 85 01/25/18 12:00 97.0 86 16 136/59 (84) 97 Vapotherm 50.00 30.00 01/25/18 11:29 Vapotherm 30.00 50 01/25/18 08:00 Vapotherm 30.00 01/25/18 08:00 96.7 80 18 120/58 (78) 96 Vapotherm 50.00 30.00 01/25/18 07:57 90 Vapotherm 30.00 50 I & O 01/26/18 07:00 Intake Total 2020 ml Output Total 1750 ml Balance 270 ml Height & Weight Height: 5'9.00" Weight: 256lbs. 7.0oz. [id number]; 36.2 BMI Method:Estimated General Appearance: Moderate Distress, Obese HEENT: Normal ENT Inspection Neck: Normal Inspection Respiratory: No Accessory Muscle Use, No Respiratory Distress, Decreased Breath Sounds Cardiovascular: Regular Rate, Rhythm Capillary Refill: Less Than 3 Seconds Gastrointestinal: other (Distended) Extremity: Pedal Edema Neurologic/Psychiatric: Other (sleeping) Skin: Normal Color, Warm/Dry Lymphatic: No Adenopathy Results Lab Laboratory Tests 01/25/18 05:24 01/26/18 06:37 Assessment/Plan Assessment/Plan Post obstructive uropathy probably secondary to BPH-- -[place]ax Hypoxia -with bilateral Right >Left pleural effusions -pt is requiring 100% via Vapotherm -He is a DNR -BiPAP PRN -Repeat ABG -Lasix , Hep lock IVF -CXR is pending Pleural effusion - small -Will increase Lasix to 40mg BID Metabolic encephalopathy -Monitor Acute renal failure - improved -monitor Ascites with hx of hep C -S/p Paracentesis Metabolic acidosis -Monitor Morbid obesity probable OHS Hx of hep C Hyponatremia -Monitor With patient's multiple comorbidities, and debility he has a very poor prognosis. Patient is rapidly declining and is in respiratory distress. He is requiring 100% oxygen via Vapotherm. He is confused, lethargic, and in distress. I called and talked with Dr. Spears who is covering for Dr. Patel and knows patient. She agrees patient should be comfort care and has no chance of recovery. I am going to make patient comfort care only. Further medical care is futile. PT has no known family or DOPA. CARMEN SÁNCHEZ DO Jan 26, 2018 07:59
[2018-01-26 08:00] VITALS: BP 138/78
--- NOTE | 2018-01-26 08:11 | Diagnostic Imaging Report ---
INDICATION: Shortness of breath. COMPARISON: 01/25/2018. FINDINGS: Single view of the chest demonstrates cardiac enlargement with unchanged bilateral pulmonary infiltrates. Stable effusions are present. There is no pneumothorax. Sternal wires are midline. IMPRESSION: Unchanged aeration of the lungs. Dictated by: Dictated on workstation # [id number]
[2018-01-26] MEDS ORDERED: morphine INJ 4 MG/ML 1 ML (VIAL/SYRINGE) ONE (08:25)
[2018-01-26] MEDS ORDERED: LORazepam INJ 2 MG/ML (ATIVAN) VIAL ONE (08:26)
[2018-01-26] MEDS ORDERED: LORazepam INJ 2 MG/ML (ATIVAN) VIAL IVP PRN (09:00)
--- NOTE | 2018-01-26 09:35 | Cardiology Progress Note ---
Subjective Date Seen by Provider: Jan 26, 2018 Time Seen by Provider: 09:34 Subjective/Events-last exam Patient is laying down in bed, lethargic, started on comfort care today. Denied any active pain Review of Systems General: No Chills, No Night Sweats; Fatigue, Malaise; No Appetite, No Other HEENT: No Head Aches, No Visual Changes, No Eye Pain, No Ear Pain, No Dysphasia , No Sinus Congestion, No Post Nasal Drip, No Sore Throat, No Other Pulmonary: No Dyspnea, No Cough, No Pleuritic Chest Pain, No Other Cardiovascular: No: Chest Pain, Palpitations, Orthopnea, Paroxysmal Noc. Dyspnea, Edema, Lt Headedness, Other Objective-Cardiology Exam Last Set of Vital Signs Vital Signs 01/26/18 01/26/18 07:45 08:00 Temp 97.2 Pulse 95 Resp 20 B/P (MAP) 138/78 (98) Pulse Ox 100 O2 Delivery Vapotherm O2 Flow Rate 100.00 30.00 FiO2 100 Capillary Refill : Less Than 3 Seconds I&O Intake and Output 01/26/18 00:00 Intake Total 1070 ml Output Total 1650 ml Balance -580 ml Intake Oral 1020 ml IV Total 50 ml Output Urine Total 1650 ml General: Alert, Oriented X3, Cooperative HEENT: Atraumatic, PERRLA Neck: Supple, No Thyromegaly Lungs: Normal Air Movement, Other (Bilateral rhonchi) Heart: Regular Rate, Normal S1, Normal S2, No Murmurs Abdomen: Other (Distended abdomen with fluid wave) Extremities: No Clubbing, No Cyanosis, Other (Peripheral edema) Skin: Other (Multiple pruritic lesions) Neuro: Normal Tone, Other (Lethargic) Psych/Mental Status: Other (Lethargic) Results Lab Laboratory Tests 01/26/18 06:37 A/P-Cardiology Admission Diagnosis Coronary artery disease Anasarca Atrial flutter Acute renal failure Assessment/Plan Abdominal discomfort of undetermined etiology, reporting improvement not having any active pain at this time Status post acute renal failure, better at this time. Continue to monitor renal function. Transient atrial flutter occurred on January 23, 2018, lasted for about 2 minutes. No further episodes were reported. Continue to monitor. Anasarca, hepatic cirrhosis and hypoalbuminemia, had paracentesis. Managed by primary care team. Chronic Hep-C and hepatic cirrhosis, managed by [facility] at [facility] CAD, s/p CABG in October 2010. MPI of 09/16/15 showed basal inf infarction with only minimal antoinette-infarct ischemia and LVEF 69%. Echo of 07/17/[address] Aparicio at [facility], [place], is reported to have shown LVEF 55%, RV overload, PASP approx 57 mmHg, mild to mod MR, severe TR, continue to monitor H/o heavy alcohol use in the past, currently down to two beers a day (according to him) Abnormal EKG with chronic right bundle branch block. Continue to monitor Chronic tobacco use H/o intolerance statin due to multiple comorbid condition. COPD Intolerance to enalapril (stopped at [facility] in November 2014 after he had presented with tongue swelling) Obesity with BMI approx 37 Patient was started on comfort care. I will sign off at this time, reconsult if needed. Clinical Quality Measures DVT/VTE Risk/Contraindication: Risk Factor Score Per Nursin RFS Level Per Nursing on Admit: 4+=Very High MILA LOERA MD Jan 26, 2018 09:35
--- NOTE | 2018-01-26 09:53 | Progress Note-Hospitalist ---
MARIKA SEE MEDICAL STUDENT 01/26/18 0953: Subjective HPI/CC On Admission Date Seen by Provider: Jan 26, 2018 Time Seen by Provider: 08:20 CC: Found down at home on couch for 8 days HPI: This is a 67yoWM clinic patient of Dr Patel who presented to the ER after being found down at home on the cough after 8 days and the living conditions being described as atrocious. Patient was confused on admit to ER asking for a Porterhouse steak with Demerol. [facility]. Patient has improved today but required conscious sedation for myers catheter to be placed after the nurse called me at 1220am to report he had >1000cc in his bladder but once it was placed the UOP was only 200cc so there is a possibility the bladder scan was measuring other body fluid. His creatinine continues to decline and IVF is being given due to volume depletion it is of a concern that oliguria renal failure will worsen and require transfer to higher level of care tomorrow. Patient does not have any details to add to his story and his dyspnea and overall severe debility give rise to a very poor prognosis and little chance of recovery. Subjective/Events-last exam No acute events overnight. Pt lethargic when I was in the room, falling asleep during conversation. Changed to comfort measures this morning. Focused Exam Respiratory: Chest Non Tender, Accessory Muscle Use, Crackles Cardiovascular: Regular Rate, Rhythm, No Edema Skin: mottled Objective Exam Vital Signs Vital Signs Date Time Temp Pulse Resp B/P (MAP) Pulse Ox O2 Delivery O2 Flow Rate FiO2 01/26/18 08:00 97.2 95 20 138/78 (98) 100 Vapotherm 100.00 30.00 01/26/18 07:45 100 Capillary Refill : Less Than 3 Seconds Neck: JVD Results/Procedures Lab Laboratory Tests 01/26/18 06:37 Patient resulted labs reviewed. Assessment/Plan Assessment and Plan Assess & Plan/Chief Complaint 67 yo male with cirrhoses 2/2 hepatitis C, COPD, CHF, admitted for CHF exacerbation with acute on chronic renal failure and respiratory failure with effusions present. Patient clinically declining. -Comfort measures only Critical Care Critical Care: Critically Ill Patient Clinical Quality Measures DVT/VTE Risk/Contraindication: Risk Factor Score Per Nursin RFS Level Per Nursing on Admit: 4+=Very High LIZ CHERRY DO 01/26/18 1441: Subjective HPI/CC On Admission Time Seen by Provider: 11:00 Subjective/Events-last exam Poor prognosis Patient does not appear to be in any pain Objective Exam General Appearance: No Apparent Distress, WD/WN, Chronically ill, Other ( unresponsive) Assessment/Plan Assessment and Plan Assess & Plan/Chief Complaint Comfort care MARIKA SEE MEDICAL STUDENT Jan 26, 2018 09:53 LIZ CHERRY DO Jan 26, 2018 14:41
[2018-01-26] MEDS: morphine INJ 4 MG/ML 1 ML (VIAL/SYRINGE) IVP PRN ×4 (10:44→22:40)
--- NOTE | 2018-01-28 08:27 | Discharge Summary ---
Diagnosis/Chief Complaint Date of Admission Jan 18, 2018 at 15:05 Date of Discharge Jan 27, 2018 at 01:40 Discharge Time: 08:25 Discharge Diagnosis CHF. COPD. Pleural effusion. Coronary artery disease. Alcoholism. Renal insufficiency. Ascites. Emphysema. Benign prostatic hypertrophy. Nicotine dependence. Discharge Summary Consultations Cardiology. Pulmonology. Urology. Discharge Physical Examination Allergies: Coded Allergies: enalapril (Verified Allergy, Severe, TONGUE SWELLING, 01/21/18) Penicillins (Unverified Allergy, Mild, 01/15/14) Vitals & I&Os Vital Signs Date Time Temp Pulse Resp B/P (MAP) Pulse Ox O2 Delivery O2 Flow Rate FiO2 01/26/18 20:00 Room Air 01/26/18 08:20 25.00 100 01/26/18 08:00 97.2 95 20 138/78 (98) 100 Hospital Course Patient in hospital continued to deteriorate. Patient comfort care. Patient Labs (last 24 hrs) Laboratory Tests 01/18/18 13:23: Glucometer 111H 01/18/18 13:27: White Blood Count 5.1, Red Blood Count 4.82, Hemoglobin 13.5, Hematocrit 41, Mean Corpuscular Volume 85, Mean Corpuscular Hemoglobin 28, Mean Corpuscular Hemoglobin Concent 33, Red Cell Distribution Width 18.0H, Platelet Count 150, Mean Platelet Volume 11.3H, Neutrophils (%) (Auto) 81H, Lymphocytes (%) (Auto) 7L, Monocytes (%) (Auto) 11, Eosinophils (%) (Auto) 1, Basophils (%) (Auto) 0, Neutrophils # (Auto) 4.1, Lymphocytes # (Auto) 0.3L, Monocytes # (Auto) 0.6, Eosinophils # (Auto) 0.1, Basophils # (Auto) 0.0, Neutrophils % (Manual) 89, Lymphocytes % (Manual) 1, Monocytes % (Manual) 9, Eosinophils % (Manual) 0, Basophils % (Manual) 1, Band Neutrophils 0, Anisocytosis MODERATE, Prothrombin Time 19.1H, INR Comment 1.6H, Sodium Level 132L, Potassium Level 5.5H, Chloride Level 100, Carbon Dioxide Level 21, Anion Gap 11, Blood Urea Nitrogen 53H, Creatinine 2.75H, Estimat Glomerular Filtration Rate 23, BUN/Creatinine Ratio 19 , Glucose Level 127H, Lactic Acid Level 2.82*H, Calcium Level 8.9, Corrected Calcium 9.9, Total Bilirubin 3.2H, Aspartate Amino Transf (AST/SGOT) 21, Alanine Aminotransferase (ALT/SGPT) 15, Alkaline Phosphatase 68, Ammonia 50H, Total Creatine Kinase 28L, B-Type Natriuretic Peptide 3346.6H, Total Protein 8.3H, Albumin 2.8L 01/18/18 15:05: Lab Scanned Report Referred Lab Report 01/18/18 15:30: Lactic Acid Level 1.53 01/18/18 18:25: White Blood Count 5.5, Red Blood Count 4.97, Hemoglobin 14.2, Hematocrit 42, Mean Corpuscular Volume 85, Mean Corpuscular Hemoglobin 29, Mean Corpuscular Hemoglobin Concent 34, Red Cell Distribution Width 18.1H, Platelet Count 157, Mean Platelet Volume 11.2H, Prothrombin Time 18.6H, INR Comment 1.5H, Activated Partial Thromboplast Time 35, Sodium Level 132L, Potassium Level 5.8H, Chloride Level 99, Carbon Dioxide Level 24, Anion Gap 9, Blood Urea Nitrogen 54H, Creatinine 2.84H, Estimat Glomerular Filtration Rate 22, BUN/Creatinine Ratio 19 , Glucose Level 94, Calcium Level 9.1, Corrected Calcium 10.0, Total Bilirubin 3.3H, Aspartate Amino Transf (AST/SGOT) 22, Alanine Aminotransferase (ALT/SGPT) 16, Alkaline Phosphatase 70, Troponin I < 0.30, B-Type Natriuretic Peptide 3521.9H, Total Protein 8.4H, Albumin 2.9L, Triglycerides Level 114, Cholesterol Level 92, LDL Cholesterol Direct 65, VLDL Cholesterol 23, HDL Cholesterol < 15L , Thyroid Stimulating Hormone (TSH) 7.35H 01/19/18 01:50: White Blood Count 5.3, Red Blood Count 4.48, Hemoglobin 13.1L, Hematocrit 38L, Mean Corpuscular Volume 85, Mean Corpuscular Hemoglobin 29, Mean Corpuscular Hemoglobin Concent 35, Red Cell Distribution Width 17.7H, Platelet Count 127L, Mean Platelet Volume 10.9H, Sodium Level 133L, Potassium Level 5.7H, Chloride Level 101, Carbon Dioxide Level 18L, Anion Gap 14, Blood Urea Nitrogen 57H, Creatinine 3.08H, Estimat Glomerular Filtration Rate 20, BUN/Creatinine Ratio 19 , Glucose Level 130H, Calcium Level 8.4L, Corrected Calcium 9.4, Total Bilirubin 2.8H, Aspartate Amino Transf (AST/SGOT) 18, Alanine Aminotransferase ( ALT/SGPT) 16, Alkaline Phosphatase 62, Troponin I < 0.30, Total Protein 7.4, Albumin 2.7L, Neutrophils (%) (Auto) 95H, Lymphocytes (%) (Auto) 3L, Monocytes ( %) (Auto) 2, Eosinophils (%) (Auto) 0, Basophils (%) (Auto) 0, Neutrophils # ( Auto) 5.1, Lymphocytes # (Auto) 0.2L, Monocytes # (Auto) 0.1, Eosinophils # ( Auto) 0.0, Basophils # (Auto) 0.0, Free Thyroxine 0.75, Free Triiodothyronine < 1.00L 01/19/18 06:10: Urine Color AMBERH, Urine Clarity CLEAR, Urine pH 5, Urine Specific [place] 1.030H, Urine Protein 3+H, Urine Glucose (UA) NEGATIVE, Urine Ketones 1+H, Urine Nitrite POSITIVEH, Urine Bilirubin 2+H, Urine Urobilinogen 4H, Urine Leukocyte Esterase 2+H, Urine RBC (Auto) 1+H, Urine RBC NONE, Urine WBC 2-5, Urine Crystals PRESENTH, Urine Amorphous Sediment MOD DANIELA URATESH, Urine Bacteria LARGEH, Urine Casts PRESENT, Urine Hyaline Casts 2-5H, Urine Mucus SMALLH, Urine Culture Indicated YES 01/19/18 06:30: Lactic Acid Level 1.20 01/19/18 06:50: Blood Gas Puncture Site L RAD, Blood Gas Patient Temperature 97.3, Arterial Blood pH 7.29*L, Arterial Blood Partial Pressure CO2 53H, Arterial Blood Partial Pressure O2 72L, Arterial Blood HCO3 25, Arterial Blood Total CO2 26.4, Arterial Blood Oxygen Saturation 94, Arterial Blood Base Excess -1.2, Jacek Test YES-POS, Blood Gas Ventilator Setting NO, Blood Gas Inspired Oxygen 20 01/19/18 11:35: Sodium Level 134L, Potassium Level 4.9, Chloride Level 101, Carbon Dioxide Level 21, Anion Gap 12, Blood Urea Nitrogen 59H, Creatinine 3.04H, Estimat Glomerular Filtration Rate 21, BUN/Creatinine Ratio 19, Glucose Level 159H, Calcium Level 8.2L 01/19/18 16:15: Blood Gas Puncture Site R.RADIAL, Blood Gas Patient Temperature 97.3, Arterial Blood pH 7.34*L, Arterial Blood Partial Pressure CO2 49H, Arterial Blood Partial Pressure O2 60L, Arterial Blood HCO3 26, Arterial Blood Total CO2 27.1, Arterial Blood Oxygen Saturation 91L, Arterial Blood Base Excess 0.3, Jacek Test YES-POS, Blood Gas Ventilator Setting NO, Blood Gas Inspired Oxygen 30% 01/20/18 03:28: Sodium Level 132L, Potassium Level 4.7, Chloride Level 101, Carbon Dioxide Level 22, Anion Gap 9, Blood Urea Nitrogen 60H, Creatinine 2.80H, Estimat Glomerular Filtration Rate 23, BUN/Creatinine Ratio 21, Glucose Level 170H, Calcium Level 8.0L, White Blood Count 6.2, Red Blood Count 4.38, Hemoglobin 12.5L, Hematocrit 37L, Mean Corpuscular Volume 85, Mean Corpuscular Hemoglobin 29, Mean Corpuscular Hemoglobin Concent 34, Red Cell Distribution Width 18.0H, Platelet Count 119L, Mean Platelet Volume 11.0H, Neutrophils (%) (Auto) 92H, Lymphocytes (%) (Auto) 2L, Monocytes (%) (Auto) 6, Eosinophils (%) (Auto) 0, Basophils (%) (Auto) 0, Neutrophils # (Auto) 5.8, Lymphocytes # (Auto) 0.1L, Monocytes # (Auto) 0.4, Eosinophils # (Auto) 0.0, Basophils # (Auto) 0.0, Corrected Calcium 9.2, Total Bilirubin 1.8H, Aspartate Amino Transf (AST/SGOT) 16, Alanine Aminotransferase (ALT/SGPT) 13, Alkaline Phosphatase 60, Total Protein 7.3, Albumin 2.5L 01/21/18 03:07: White Blood Count 7.4, Red Blood Count 4.39, Hemoglobin 12.8L, Hematocrit 37L, Mean Corpuscular Volume 85, Mean Corpuscular Hemoglobin 29, Mean Corpuscular Hemoglobin Concent 34, Red Cell Distribution Width 18.1H, Platelet Count 109L, Mean Platelet Volume 10.9H, Neutrophils (%) (Auto) 94H, Lymphocytes (%) (Auto) 1L, Monocytes (%) (Auto) 5, Eosinophils (%) (Auto) 0, Basophils (%) (Auto) 0, Neutrophils # (Auto) 7.0, Lymphocytes # (Auto) 0.1L, Monocytes # (Auto) 0.3, Eosinophils # (Auto) 0.0, Basophils # (Auto) 0.0, Sodium Level 134L, Potassium Level 5.0, Chloride Level 103, Carbon Dioxide Level 19L, Anion Gap 12, Blood Urea Nitrogen 59H, Creatinine 2.55H, Estimat Glomerular Filtration Rate 25, BUN/ Creatinine Ratio 23, Glucose Level 146H, Calcium Level 8.1L, Corrected Calcium 9.1, Phosphorus Level 4.8H, Magnesium Level 2.2, Total Bilirubin 1.4H, Aspartate Amino Transf (AST/SGOT) 15, Alanine Aminotransferase (ALT/SGPT) 15, Alkaline Phosphatase 64, B-Type Natriuretic Peptide 1142.6H, Total Protein 7.6, Albumin 2.8L 01/22/18 07:11: White Blood Count 7.2, Red Blood Count 4.40, Hemoglobin 12.3L, Hematocrit 38L, Mean Corpuscular Volume 87, Mean Corpuscular Hemoglobin 28, Mean Corpuscular Hemoglobin Concent 32, Red Cell Distribution Width 18.5H, Platelet Count 108L, Mean Platelet Volume 11.1H, Neutrophils (%) (Auto) 93H, Lymphocytes (%) (Auto) 2L, Monocytes (%) (Auto) 5, Eosinophils (%) (Auto) 0, Basophils (%) (Auto) 0, Neutrophils # (Auto) 6.6, Lymphocytes # (Auto) 0.1L, Monocytes # (Auto) 0.4, Eosinophils # (Auto) 0.0, Basophils # (Auto) 0.0, Sodium Level 138, Potassium Level 4.3, Chloride Level 103, Carbon Dioxide Level 26, Anion Gap 9, Blood Urea Nitrogen 64H, Creatinine 1.71H, Estimat Glomerular Filtration Rate 40, BUN/ Creatinine Ratio 37, Glucose Level 139H, Calcium Level 8.2L, Phosphorus Level 3.6, Magnesium Level 2.1 01/23/18 04:48: White Blood Count 7.4, Red Blood Count 4.24L, Hemoglobin 12.2L, Hematocrit 37L, Mean Corpuscular Volume 86, Mean Corpuscular Hemoglobin 29, Mean Corpuscular Hemoglobin Concent 33, Red Cell Distribution Width 18.4H, Platelet Count 93L, Mean Platelet Volume 11.1H, Neutrophils (%) (Auto) 88H, Lymphocytes (%) (Auto) 3L, Monocytes (%) (Auto) 9, Eosinophils (%) (Auto) 0, Basophils (%) (Auto) 0, Neutrophils # (Auto) 6.5, Lymphocytes # (Auto) 0.2L, Monocytes # (Auto) 0.7, Eosinophils # (Auto) 0.0, Basophils # (Auto) 0.0, Sodium Level 140, Potassium Level 4.4, Chloride Level 103, Carbon Dioxide Level 26, Anion Gap 11, Blood Urea Nitrogen 59H, Creatinine 1.38H, Estimat Glomerular Filtration Rate 52, BUN/ Creatinine Ratio 43, Glucose Level 122H, Calcium Level 8.6, Phosphorus Level 3.1 , Magnesium Level 2.1, Neutrophils % (Manual) 91, Lymphocytes % (Manual) 3, Monocytes % (Manual) 6 01/23/18 10:50: Urine Color YELLOW, Urine Clarity SLIGHTLY CLOUDY, Urine pH 5, Urine Specific [place] 1.010L, Urine Protein 1+H, Urine Glucose (UA) NEGATIVE, Urine Ketones NEGATIVE, Urine Nitrite NEGATIVE, Urine Bilirubin NEGATIVE, Urine Urobilinogen NORMAL, Urine Leukocyte Esterase 1+H, Urine RBC (Auto) 4+H, Urine RBC 10-25H, Urine WBC 0-2, Urine Squamous Epithelial Cells RARE, Urine Crystals NONE, Urine Bacteria TRACE, Urine Casts NONE, Urine Mucus NEGATIVE, Urine Culture Indicated NO 01/23/18 13:24: Prothrombin Time 16.1H, INR Comment 1.3 01/23/18 15:03: Body Fluid Source PERITONEAL, Body Fluid Color PALE YELLOW, Body Fluid Appearance CLEAR, Body Fluid pH 7.3, Body Fluid WBC 48, Body Fluid RBC 1, Body Fluid Polynuclear WBCs 12, Body Fluid Mononuclear WBCs 24, Body Fluid Lymphocytes 42, Body Fluid Other Cells 22, Body Fluid Glucose 124, Body Fluid Total Protein 3.4, Body Fluid Lactate Dehydrogenase 105, Body Fluid Amylase 20 01/24/18 03:30: White Blood Count 5.6, Red Blood Count 3.75L, Hemoglobin 10.5L, Hematocrit 33L, Mean Corpuscular Volume 87, Mean Corpuscular Hemoglobin 28, Mean Corpuscular Hemoglobin Concent 32, Red Cell Distribution Width 18.2H, Platelet Count 96L, Mean Platelet Volume 11.9H, Neutrophils (%) (Auto) 90H, Lymphocytes (%) (Auto) 3L, Monocytes (%) (Auto) 8, Eosinophils (%) (Auto) 0, Basophils (%) (Auto) 0, Neutrophils # (Auto) 5.0, Lymphocytes # (Auto) 0.2L, Monocytes # (Auto) 0.4, Eosinophils # (Auto) 0.0, Basophils # (Auto) 0.0, Neutrophils % (Manual) 90, Lymphocytes % (Manual) 3, Monocytes % (Manual) 7, Sodium Level 142, Potassium Level 5.0, Chloride Level 104, Carbon Dioxide Level 31, Anion Gap 7, Blood Urea Nitrogen 65H, Creatinine 1.11, Estimat Glomerular Filtration Rate > 60, BUN/ Creatinine Ratio 59, Glucose Level 124H, Calcium Level 8.6, Phosphorus Level 2.2L, Magnesium Level 1.8, Total Bilirubin 1.3H, Direct Bilirubin 0.9H, Indirect Bilirubin 0.4, Aspartate Amino Transf (AST/SGOT) 15, Alanine Aminotransferase (ALT/SGPT) 16, Alkaline Phosphatase 55, Total Protein 6.7, Albumin 2.6L 01/24/18 20:10: Vancomycin Level Trough 19.3 01/25/18 05:24: White Blood Count 4.3, Red Blood Count 3.52L, Hemoglobin 9.8L, Hematocrit 31L, Mean Corpuscular Volume 88, Mean Corpuscular Hemoglobin 28, Mean Corpuscular Hemoglobin Concent 32, Red Cell Distribution Width 18.4H, Platelet Count 96L, Mean Platelet Volume 12.7H, Neutrophils (%) (Auto) 78H, Lymphocytes (%) (Auto) 9L, Monocytes (%) (Auto) 11, Eosinophils (%) (Auto) 3, Basophils (%) (Auto) 0, Neutrophils # (Auto) 3.3, Lymphocytes # (Auto) 0.4L, Monocytes # (Auto) 0.5, Eosinophils # (Auto) 0.1, Basophils # (Auto) 0.0, Sodium Level 140, Potassium Level 4.9, Chloride Level 102, Carbon Dioxide Level 30, Anion Gap 8, Blood Urea Nitrogen 66H, Creatinine 1.09, Estimat Glomerular Filtration Rate > 60, BUN/ Creatinine Ratio 61, Glucose Level 88, Calcium Level 8.5, Phosphorus Level 2.5, Magnesium Level 1.9 01/25/18 08:25: Ammonia 24 01/26/18 06:37: White Blood Count 4.5, Red Blood Count 3.24L, Hemoglobin 9.1L, Hematocrit 29L, Mean Corpuscular Volume 89, Mean Corpuscular Hemoglobin 28, Mean Corpuscular Hemoglobin Concent 32, Red Cell Distribution Width 18.6H, Platelet Count 96L, Mean Platelet Volume 11.4H, Neutrophils (%) (Auto) 85H, Lymphocytes (%) (Auto) 5L, Monocytes (%) (Auto) 10, Eosinophils (%) (Auto) 0, Basophils (%) (Auto) 0, Neutrophils # (Auto) 3.8, Lymphocytes # (Auto) 0.2L, Monocytes # (Auto) 0.5, Eosinophils # (Auto) 0.0, Basophils # (Auto) 0.0, Sodium Level 143, Potassium Level 4.6, Chloride Level 103, Carbon Dioxide Level 32, Anion Gap 8, Blood Urea Nitrogen 65H, Creatinine 1.20, Estimat Glomerular Filtration Rate > 60, BUN/ Creatinine Ratio 54, Glucose Level 119H, Calcium Level 8.5, Phosphorus Level 2.8 , Magnesium Level 1.8, B-Type Natriuretic Peptide 1384.4H Microbiology 01/18/18 Blood Culture - Final, Complete No growth 01/23/18 Gram Stain - Final, Resulted 01/23/18 Anaerobic Culture - Preliminary, Resulted No anaerobes isolated 01/23/18 Surgical Culture - Final, Resulted No growth 01/23/18 Fungal Culture 1 - Preliminary, Resulted No growth 01/19/18 Urine Culture - Final, Complete Enterococcus faecalis Staphylococcus epidermidis 01/20/18 Lice/Scabies Examination - Final, Complete Laboratory Tests 01/18/18 13:27 01/18/18 18:25 01/19/18 01:50 01/19/18 11:35 01/20/18 03:28 01/21/18 03:07 01/22/18 07:11 01/23/18 04:48 01/24/18 03:30 01/25/18 05:24 01/26/18 06:37 Pending Labs Microbiology Date/Time Source Procedure Growth Status 01/18/18 14:00 Peripheral Lt Ac Blood Culture - Final No growth Complete 01/18/18 13:27 Peripheral Jugular Blood Culture - Final Staph, Coag Neg ([employer]) See Comments Complete 01/23/18 15:03 Body Fluid Peritoneal Gram Stain - Final Resulted 01/23/18 15:03 Body Fluid Peritoneal Anaerobic Culture - Preliminary No anaerobes isolated Resulted 01/23/18 15:03 Body Fluid Peritoneal Surgical Culture - Final No growth Resulted 01/23/18 15:03 Body Fluid Peritoneal Fungal Culture 1 - Preliminary No growth Resulted 01/19/18 06:10 Urine Goldberg Cath Urine Culture - Final Enterococcus faecalis Staphylococcus epidermidis Complete 01/20/18 13:40 Skin Lice/Scabies Examination - Final Complete Laboratory Tests 01/18/18 13:23: Glucometer 111 01/18/18 13:27: White Blood Count 5.1, Red Blood Count 4.82, Hemoglobin 13.5, Hematocrit 41, Mean Corpuscular Volume 85, Mean Corpuscular Hemoglobin 28, Mean Corpuscular Hemoglobin Concent 33, Red Cell Distribution Width 18.0, Platelet Count 150, Mean Platelet Volume 11.3, Neutrophils (%) (Auto) 81, Lymphocytes (%) (Auto) 7, Monocytes (%) (Auto) 11, Eosinophils (%) (Auto) 1, Basophils (%) (Auto) 0, Neutrophils # (Auto) 4.1, Lymphocytes # (Auto) 0.3, Monocytes # (Auto) 0.6, Eosinophils # (Auto) 0.1, Basophils # (Auto) 0.0, Neutrophils % (Manual) 89, Lymphocytes % (Manual) 1, Monocytes % (Manual) 9, Eosinophils % (Manual) 0, Basophils % (Manual) 1, Band Neutrophils 0, Anisocytosis MODERATE, Prothrombin Time 19.1, INR Comment 1.6, Sodium Level 132, Potassium Level 5.5, Chloride Level 100, Carbon Dioxide Level 21, Anion Gap 11, Blood Urea Nitrogen 53, Creatinine 2.75, Estimat Glomerular Filtration Rate 23, BUN/Creatinine Ratio 19 , Glucose Level 127, Lactic Acid Level 2.82, Calcium Level 8.9, Corrected Calcium 9.9, Total Bilirubin 3.2, Aspartate Amino Transf (AST/SGOT) 21, Alanine Aminotransferase (ALT/SGPT) 15, Alkaline Phosphatase 68, Ammonia 50, Total Creatine Kinase 28, B-Type Natriuretic Peptide 3346.6, Total Protein 8.3, Albumin 2.8 01/18/18 15:05: Lab Scanned Report Referred Lab Report 01/18/18 15:30: Lactic Acid Level 1.53 01/18/18 18:25: White Blood Count 5.5, Red Blood Count 4.97, Hemoglobin 14.2, Hematocrit 42, Mean Corpuscular Volume 85, Mean Corpuscular Hemoglobin 29, Mean Corpuscular Hemoglobin Concent 34, Red Cell Distribution Width 18.1, Platelet Count 157, Mean Platelet Volume 11.2, Prothrombin Time 18.6, INR Comment 1.5, Activated Partial Thromboplast Time 35, Sodium Level 132, Potassium Level 5.8, Chloride Level 99, Carbon Dioxide Level 24, Anion Gap 9, Blood Urea Nitrogen 54, Creatinine 2.84, Estimat Glomerular Filtration Rate 22, BUN/Creatinine Ratio 19 , Glucose Level 94, Calcium Level 9.1, Corrected Calcium 10.0, Total Bilirubin 3.3, Aspartate Amino Transf (AST/SGOT) 22, Alanine Aminotransferase (ALT/SGPT) 16, Alkaline Phosphatase 70, Troponin I < 0.30, B-Type Natriuretic Peptide 3521.9, Total Protein 8.4, Albumin 2.9, Triglycerides Level 114, Cholesterol Level 92, LDL Cholesterol Direct 65, VLDL Cholesterol 23, HDL Cholesterol < 15, Thyroid Stimulating Hormone (TSH) 7.35 01/19/18 01:50: White Blood Count 5.3, Red Blood Count 4.48, Hemoglobin 13.1, Hematocrit 38, Mean Corpuscular Volume 85, Mean Corpuscular Hemoglobin 29, Mean Corpuscular Hemoglobin Concent 35, Red Cell Distribution Width 17.7, Platelet Count 127, Mean Platelet Volume 10.9, Sodium Level 133, Potassium Level 5.7, Chloride Level 101, Carbon Dioxide Level 18, Anion Gap 14, Blood Urea Nitrogen 57, Creatinine 3.08, Estimat Glomerular Filtration Rate 20, BUN/Creatinine Ratio 19 , Glucose Level 130, Calcium Level 8.4, Corrected Calcium 9.4, Total Bilirubin 2.8, Aspartate Amino Transf (AST/SGOT) 18, Alanine Aminotransferase (ALT/SGPT) 16, Alkaline Phosphatase 62, Troponin I < 0.30, Total Protein 7.4, Albumin 2.7, Neutrophils (%) (Auto) 95, Lymphocytes (%) (Auto) 3, Monocytes (%) (Auto) 2, Eosinophils (%) (Auto) 0, Basophils (%) (Auto) 0, Neutrophils # (Auto) 5.1, Lymphocytes # (Auto) 0.2, Monocytes # (Auto) 0.1, Eosinophils # (Auto) 0.0, Basophils # (Auto) 0.0, Free Thyroxine 0.75, Free Triiodothyronine <1.00 01/19/18 06:10: Urine Color CHRIS, Urine Clarity CLEAR, Urine pH 5, Urine Specific [place] 1.030 , Urine Protein 3+, Urine Glucose (UA) NEGATIVE, Urine Ketones 1+, Urine Nitrite POSITIVE, Urine Bilirubin 2+, Urine Urobilinogen 4, Urine Leukocyte Esterase 2+, Urine RBC (Auto) 1+, Urine RBC NONE, Urine WBC 2-5, Urine Crystals PRESENT, Urine Amorphous Sediment MOD DANIELA URATES, Urine Bacteria LARGE, Urine Casts PRESENT, Urine Hyaline Casts 2-5, Urine Mucus SMALL, Urine Culture Indicated YES 01/19/18 06:30: Lactic Acid Level 1.20 01/19/18 06:50: Blood Gas Puncture Site L RAD, Blood Gas Patient Temperature 97.3, Arterial Blood pH 7.29, Arterial Blood Partial Pressure CO2 53, Arterial Blood Partial Pressure O2 72, Arterial Blood HCO3 25, Arterial Blood Total CO2 26.4, Arterial Blood Oxygen Saturation 94, Arterial Blood Base Excess -1.2, Jacek Test YES-POS , Blood Gas Ventilator Setting NO, Blood Gas Inspired Oxygen 20 01/19/18 11:35: Sodium Level 134, Potassium Level 4.9, Chloride Level 101, Carbon Dioxide Level 21, Anion Gap 12, Blood Urea Nitrogen 59, Creatinine 3.04, Estimat Glomerular Filtration Rate 21, BUN/Creatinine Ratio 19, Glucose Level 159, Calcium Level 8.2 01/19/18 16:15: Blood Gas Puncture Site R.RADIAL, Blood Gas Patient Temperature 97.3, Arterial Blood pH 7.34, Arterial Blood Partial Pressure CO2 49, Arterial Blood Partial Pressure O2 60, Arterial Blood HCO3 26, Arterial Blood Total CO2 27.1, Arterial Blood Oxygen Saturation 91, Arterial Blood Base Excess 0.3, Jacek Test YES-POS, Blood Gas Ventilator Setting NO, Blood Gas Inspired Oxygen 30% 01/20/18 03:28: Sodium Level 132, Potassium Level 4.7, Chloride Level 101, Carbon Dioxide Level 22, Anion Gap 9, Blood Urea Nitrogen 60, Creatinine 2.80, Estimat Glomerular Filtration Rate 23, BUN/Creatinine Ratio 21, Glucose Level 170, Calcium Level 8.0, White Blood Count 6.2, Red Blood Count 4.38, Hemoglobin 12.5, Hematocrit 37 , Mean Corpuscular Volume 85, Mean Corpuscular Hemoglobin 29, Mean Corpuscular Hemoglobin Concent 34, Red Cell Distribution Width 18.0, Platelet Count 119, Mean Platelet Volume 11.0, Neutrophils (%) (Auto) 92, Lymphocytes (%) (Auto) 2, Monocytes (%) (Auto) 6, Eosinophils (%) (Auto) 0, Basophils (%) (Auto) 0, Neutrophils # (Auto) 5.8, Lymphocytes # (Auto) 0.1, Monocytes # (Auto) 0.4, Eosinophils # (Auto) 0.0, Basophils # (Auto) 0.0, Corrected Calcium 9.2, Total Bilirubin 1.8, Aspartate Amino Transf (AST/SGOT) 16, Alanine Aminotransferase ( ALT/SGPT) 13, Alkaline Phosphatase 60, Total Protein 7.3, Albumin 2.5 01/21/18 03:07: White Blood Count 7.4, Red Blood Count 4.39, Hemoglobin 12.8, Hematocrit 37, Mean Corpuscular Volume 85, Mean Corpuscular Hemoglobin 29, Mean Corpuscular Hemoglobin Concent 34, Red Cell Distribution Width 18.1, Platelet Count 109, Mean Platelet Volume 10.9, Neutrophils (%) (Auto) 94, Lymphocytes (%) (Auto) 1, Monocytes (%) (Auto) 5, Eosinophils (%) (Auto) 0, Basophils (%) (Auto) 0, Neutrophils # (Auto) 7.0, Lymphocytes # (Auto) 0.1, Monocytes # (Auto) 0.3, Eosinophils # (Auto) 0.0, Basophils # (Auto) 0.0, Sodium Level 134, Potassium Level 5.0, Chloride Level 103, Carbon Dioxide Level 19, Anion Gap 12, Blood Urea Nitrogen 59, Creatinine 2.55, Estimat Glomerular Filtration Rate 25, BUN/ Creatinine Ratio 23, Glucose Level 146, Calcium Level 8.1, Corrected Calcium 9.1 , Phosphorus Level 4.8, Magnesium Level 2.2, Total Bilirubin 1.4, Aspartate Amino Transf (AST/SGOT) 15, Alanine Aminotransferase (ALT/SGPT) 15, Alkaline Phosphatase 64, B-Type Natriuretic Peptide 1142.6, Total Protein 7.6, Albumin 2.8 01/22/18 07:11: White Blood Count 7.2, Red Blood Count 4.40, Hemoglobin 12.3, Hematocrit 38, Mean Corpuscular Volume 87, Mean Corpuscular Hemoglobin 28, Mean Corpuscular Hemoglobin Concent 32, Red Cell Distribution Width 18.5, Platelet Count 108, Mean Platelet Volume 11.1, Neutrophils (%) (Auto) 93, Lymphocytes (%) (Auto) 2, Monocytes (%) (Auto) 5, Eosinophils (%) (Auto) 0, Basophils (%) (Auto) 0, Neutrophils # (Auto) 6.6, Lymphocytes # (Auto) 0.1, Monocytes # (Auto) 0.4, Eosinophils # (Auto) 0.0, Basophils # (Auto) 0.0, Sodium Level 138, Potassium Level 4.3, Chloride Level 103, Carbon Dioxide Level 26, Anion Gap 9, Blood Urea Nitrogen 64, Creatinine 1.71, Estimat Glomerular Filtration Rate 40, BUN/ Creatinine Ratio 37, Glucose Level 139, Calcium Level 8.2, Phosphorus Level 3.6 , Magnesium Level 2.1 01/23/18 04:48: White Blood Count 7.4, Red Blood Count 4.24, Hemoglobin 12.2, Hematocrit 37, Mean Corpuscular Volume 86, Mean Corpuscular Hemoglobin 29, Mean Corpuscular Hemoglobin Concent 33, Red Cell Distribution Width 18.4, Platelet Count 93, Mean Platelet Volume 11.1, Neutrophils (%) (Auto) 88, Lymphocytes (%) (Auto) 3, Monocytes (%) (Auto) 9, Eosinophils (%) (Auto) 0, Basophils (%) (Auto) 0, Neutrophils # (Auto) 6.5, Lymphocytes # (Auto) 0.2, Monocytes # (Auto) 0.7, Eosinophils # (Auto) 0.0, Basophils # (Auto) 0.0, Sodium Level 140, Potassium Level 4.4, Chloride Level 103, Carbon Dioxide Level 26, Anion Gap 11, Blood Urea Nitrogen 59, Creatinine 1.38, Estimat Glomerular Filtration Rate 52, BUN/ Creatinine Ratio 43, Glucose Level 122, Calcium Level 8.6, Phosphorus Level 3.1 , Magnesium Level 2.1, Neutrophils % (Manual) 91, Lymphocytes % (Manual) 3, Monocytes % (Manual) 6 01/23/18 10:50: Urine Color YELLOW, Urine Clarity SLIGHTLY CLOUDY, Urine pH 5, Urine Specific [place] 1.010, Urine Protein 1+, Urine Glucose (UA) NEGATIVE, Urine Ketones NEGATIVE, Urine Nitrite NEGATIVE, Urine Bilirubin NEGATIVE, Urine Urobilinogen NORMAL, Urine Leukocyte Esterase 1+, Urine RBC (Auto) 4+, Urine RBC 10-25, Urine WBC 0-2, Urine Squamous Epithelial Cells RARE, Urine Crystals NONE, Urine Bacteria TRACE, Urine Casts NONE, Urine Mucus NEGATIVE, Urine Culture Indicated NO 01/23/18 13:24: Prothrombin Time 16.1, INR Comment 1.3 01/23/18 15:03: Body Fluid Source PERITONEAL, Body Fluid Color PALE YELLOW, Body Fluid Appearance CLEAR, Body Fluid pH 7.3, Body Fluid WBC 48, Body Fluid RBC 1, Body Fluid Polynuclear WBCs 12, Body Fluid Mononuclear WBCs 24, Body Fluid Lymphocytes 42, Body Fluid Other Cells 22, Body Fluid Glucose 124, Body Fluid Total Protein 3.4, Body Fluid Lactate Dehydrogenase 105, Body Fluid Amylase 20 01/24/18 03:30: White Blood Count 5.6, Red Blood Count 3.75, Hemoglobin 10.5, Hematocrit 33, Mean Corpuscular Volume 87, Mean Corpuscular Hemoglobin 28, Mean Corpuscular Hemoglobin Concent 32, Red Cell Distribution Width 18.2, Platelet Count 96, Mean Platelet Volume 11.9, Neutrophils (%) (Auto) 90, Lymphocytes (%) (Auto) 3, Monocytes (%) (Auto) 8, Eosinophils (%) (Auto) 0, Basophils (%) (Auto) 0, Neutrophils # (Auto) 5.0, Lymphocytes # (Auto) 0.2, Monocytes # (Auto) 0.4, Eosinophils # (Auto) 0.0, Basophils # (Auto) 0.0, Neutrophils % (Manual) 90, Lymphocytes % (Manual) 3, Monocytes % (Manual) 7, Sodium Level 142, Potassium Level 5.0, Chloride Level 104, Carbon Dioxide Level 31, Anion Gap 7, Blood Urea Nitrogen 65, Creatinine 1.11, Estimat Glomerular Filtration Rate > 60, BUN/ Creatinine Ratio 59, Glucose Level 124, Calcium Level 8.6, Phosphorus Level 2.2 , Magnesium Level 1.8, Total Bilirubin 1.3, Direct Bilirubin 0.9, Indirect Bilirubin 0.4, Aspartate Amino Transf (AST/SGOT) 15, Alanine Aminotransferase ( ALT/SGPT) 16, Alkaline Phosphatase 55, Total Protein 6.7, Albumin 2.6 01/24/18 20:10: Vancomycin Level Trough 19.3 01/25/18 05:24: White Blood Count 4.3, Red Blood Count 3.52, Hemoglobin 9.8, Hematocrit 31, Mean Corpuscular Volume 88, Mean Corpuscular Hemoglobin 28, Mean Corpuscular Hemoglobin Concent 32, Red Cell Distribution Width 18.4, Platelet Count 96, Mean Platelet Volume 12.7, Neutrophils (%) (Auto) 78, Lymphocytes (%) (Auto) 9, Monocytes (%) (Auto) 11, Eosinophils (%) (Auto) 3, Basophils (%) (Auto) 0, Neutrophils # (Auto) 3.3, Lymphocytes # (Auto) 0.4, Monocytes # (Auto) 0.5, Eosinophils # (Auto) 0.1, Basophils # (Auto) 0.0, Sodium Level 140, Potassium Level 4.9, Chloride Level 102, Carbon Dioxide Level 30, Anion Gap 8, Blood Urea Nitrogen 66, Creatinine 1.09, Estimat Glomerular Filtration Rate > 60, BUN/ Creatinine Ratio 61, Glucose Level 88, Calcium Level 8.5, Phosphorus Level 2.5, Magnesium Level 1.9 01/25/18 08:25: Ammonia 24 01/26/18 06:37: White Blood Count 4.5, Red Blood Count 3.24, Hemoglobin 9.1, Hematocrit 29, Mean Corpuscular Volume 89, Mean Corpuscular Hemoglobin 28, Mean Corpuscular Hemoglobin Concent 32, Red Cell Distribution Width 18.6, Platelet Count 96, Mean Platelet Volume 11.4, Neutrophils (%) (Auto) 85, Lymphocytes (%) (Auto) 5, Monocytes (%) (Auto) 10, Eosinophils (%) (Auto) 0, Basophils (%) (Auto) 0, Neutrophils # (Auto) 3.8, Lymphocytes # (Auto) 0.2, Monocytes # (Auto) 0.5, Eosinophils # (Auto) 0.0, Basophils # (Auto) 0.0, Sodium Level 143, Potassium Level 4.6, Chloride Level 103, Carbon Dioxide Level 32, Anion Gap 8, Blood Urea Nitrogen 65, Creatinine 1.20, Estimat Glomerular Filtration Rate > 60, BUN/ Creatinine Ratio 54, Glucose Level 119, Calcium Level 8.5, Phosphorus Level 2.8 , Magnesium Level 1.8, B-Type Natriuretic Peptide 1384.4 Discharge Home Medications: Active Scripts Active Reported Isosorbide Mononitrate ER (Isosorbide Mononitrate) 120 Mg Tab.er.24h 120 Mg PO DAILY Nitroglycerin 0.4 Mg Tab.subl 0.4 Mg SL PRN Q5 MINUTES NEEDED X 3 DOSES FOR CP Plavix 75 Mg (Clopidogrel Bisulfate) 75 Mg Tablet 75 Mg PO DAILY Metoprolol Tartrate 50 Mg (Metoprolol Tartrate) 50 Mg Tablet 1 Each PO DAILY Paroxetine Hcl 30 Mg Tablet 30 Mg DAILY Instructions to patient/family Please see electronic discharge instructions given to patient. Clinical Quality Measures DVT/VTE Risk/Contraindication: Risk Factor Score Per Nursin RFS Level Per Nursing on Admit: 4+=Very High LUZ ARZOLA DO Jan 28, 2018 08:27
== END 2018-01-27 01:40 | disposition expired | DRG 682 ==
LOC: EDUNIT# 13:13 → ER 13:15 → ICU 15:05 → 4TH 01-21 17:35 → ICU 01-23 07:38 → 4TH 01-24 10:20
PROVIDERS: ADMIT Internal Medicine; ATTEND Family Medicine
PROC: 0W9G3ZZ Drainage of Peritoneal Cavity, Percutaneous Approach (ICD-10-PCS; principal; 2018-01-23)
DX: N17.9 Acute kidney failure, unspecified (principal); I13.0 Hypertensive heart and chronic kidney disease with heart failure and stage 1 through stage 4 chronic kidney disease, or unspecified chronic kidney disease; I50.31 Acute diastolic (congestive) heart failure; I42.9 Cardiomyopathy, unspecified; E87.2 Acidosis; N13.8 Other obstructive and reflux uropathy; E66.2 Morbid (severe) obesity with alveolar hypoventilation; Z51.5 Encounter for palliative care; Z66 Do not resuscitate; G93.41 Metabolic encephalopathy; E87.1 Hypo-osmolality and hyponatremia; K74.60 Unspecified cirrhosis of liver; B18.2 Chronic viral hepatitis C; N40.1 Benign prostatic hyperplasia with lower urinary tract symptoms; E86.9 Volume depletion, unspecified; J43.9 Emphysema, unspecified; I25.10 Atherosclerotic heart disease of native coronary artery without angina pectoris; F41.9 Anxiety disorder, unspecified; F32.9 Major depressive disorder, single episode, unspecified; M54.9 Dorsalgia, unspecified; M41.9 Scoliosis, unspecified; R53.81 Other malaise; K59.09 Other constipation; E87.5 Hyperkalemia; R09.02 Hypoxemia; F17.210 Nicotine dependence, cigarettes, uncomplicated; I45.10 Unspecified right bundle-branch block; I08.1 Rheumatic disorders of both mitral and tricuspid valves; Z72.89 Other problems related to lifestyle; Z68.38 Body mass index [BMI] 38.0-38.9, adult
CPT/HCPCS: 36415; 36600; 49083; 71045; 71250; 76604; 76700; 80048; 80053; 80061; 80076; 80202; 81000; 82140; 82150; 82550; 82805; 82945; 82962; 83605; 83615; 83735; 83880; 83986; 84100; 84157; 84439; 84443; 84481; 84484; 85007; 85025; 85027; 85610; 85730; 87040; 87070; 87075; 87077; 87088; 87101; 87186; 87205; 87220; 88112; 88305; 89051; 93005; 94640; 94760; 96374